=== PATIENT | female | born 1960 | race Caucasian/White ===

== ENCOUNTER → 2017-06-30 | Outpatient (CLI) | payer BC ==
[2017-06-30 10:25] LABS: ALT 39 U/L (9-52); AST 21 U/L (14-36); Alkaline Phosphatase 64 U/L (38-126); Anion Gap 9 mmol/L; Blood Urea Nitrogen 13 mg/dL (7-17); Calcium 9.6 mg/dL (8.4-10.2); Carbon Dioxide 28 mmol/L (22-30); Chloride 105 mmol/L (98-107); Cholesterol 136 mg/dL (<200); Creatine Kinase 95 U/L (30-135); Glucose 84 mg/dL (74-99); HDL Cholesterol 58 mg/dL (40-60); Non-African American GFR(MDRD) >60 (>60 ml/min/1.73 sqM); Potassium 4.3 mmol/L (3.5-5.1); Sodium 142 mmol/L (137-145); Total Bilirubin 0.5 mg/dL (0.2-1.3); Total Protein 6.4 g/dL (6.3-8.2)
== END | disposition home or self-care (01) ==
LOC: LABWHC1 08:54
PROVIDERS: ATTEND Internal Medicine Interventional Cardiology
DX: E78.2 Mixed hyperlipidemia (principal)
CPT/HCPCS: 36415; 80053; 80061; 82550

== ENCOUNTER 2017-08-17 20:42 | Emergency (ER) | payer BC ==
[2017-08-17] MEDS ORDERED: RX INFO: IV CONTRAST WAS GIVEN 1 EACH MISC MISCELLANE PRN (23:40)
[2017-08-17] MEDS ORDERED: ONDANSETRON 4 MG/2 ML VIAL IVP STA (23:40)
[2017-08-17] MEDS ORDERED: SODIUM CHLORIDE 0.9% 500 ML IV STA (23:40)
[2017-08-17] MEDS ORDERED: SODIUM CHLORIDE 0.9% 1,000 ML IV STA (23:40)
--- NOTE | 2017-08-17 23:44 | ED ---
Abdominal Pain HPI - General Source: patient Mode of arrival: ambulatory Limitations: no limitations <Damian Germain - Last Filed: 08/18/17 00:35> <Tim Hernandez - Last Filed: 08/18/17 03:05> - General Chief Complaint: Abdominal Pain Stated Complaint: Abd Pain Time Seen by Provider: 08/17/17 23:36 - History of Present Illness Initial Comments: This 57-year-old white female presents with a complaint of some left lower quadrant abdominal pain which she has had for approximately 2 days and it is progressively worsening. She denies any flank pain, urinary frequency, urgency , dysuria, or fevers. She has had some nausea throughout the day but denies any vomiting or diarrhea. She has had her appendix out but denies any other abdominal surgeries. She denies any known history of diverticulitis. She has had a previous colonoscopy but never has been diagnosed with diverticulosis. She states that the pain is fairly severe in nature. She refuses any pain medications in the ER. No other complaints or modifying factors. No previous similar incidents. (Damian Germain) - Related Data Home Medications Medication Instructions Recorded Confirmed Aspirin EC [Ecotrin Low Dose] 81 mg PO DAILY 11/05/14 08/17/17 Atorvastatin [Lipitor] 20 mg PO DAILY 11/05/14 08/17/17 Nitroglycerin Sl Tabs [Nitrostat] 0.4 mg SUBLINGUAL Q5M PRN 10/05/15 08/17/17 amLODIPine [Norvasc] 2.5 mg PO DAILY 10/05/15 08/17/17 Calcium Carbonate [Calcium] 600 mg PO DAILY 10/10/15 08/17/17 Metoprolol Tartrate [Lopressor] 25 mg PO DAILY 10/10/15 08/17/17 Multivitamins, Thera [Multivitamin] 1 tab PO DAILY 10/10/15 08/17/17 Liberty-3 Fatty Acids [Liberty-3] 1,000 mg PO DAILY 10/10/15 08/17/17 Previous Rx's Medication Instructions Recorded Ciprofloxacin HCl [Cipro] 500 mg PO Q12HR #14 tablet 08/18/17 metroNIDAZOLE [Flagyl] 500 mg PO TID #21 tab 08/18/17 Allergies Allergy/AdvReac Type Severity Reaction Status Date / Time hydromorphone HCl AdvReac Unknown Verified 08/17/17 23:45 [From Dilaudid] isosorbide mononitrate AdvReac Unknown Verified 08/17/17 23:45 [From Imdur] lisinopril AdvReac Cough Verified 08/17/17 23:45 Review of Systems ROS Other: All systems not noted in ROS Statement are negative. <Damian Germain - Last Filed: 08/18/17 00:35> ROS Other: All systems not noted in ROS Statement are negative. <Tim Hernandez - Last Filed: 08/18/17 03:05> ROS Statement: Those systems with pertinent positive or pertinent negative responses have been documented in the HPI. Past Medical History Past Medical History: Coronary Artery Disease (CAD), Myocardial Infarction ([place]) , Syncope Additional Past Medical History / Comment(s): [place] in 2012 with cardiac arrest. Mitral Valve Prolapse. Pt states does NOT have HTN, does NOT have elevated lipids - is on RX prophylactically. SEE DR WOOD'S H&P Last Myocardial Infarction Date:: 2012 History of Any Multi-Drug Resistant Organisms: None Reported Past Surgical History: Appendectomy, Heart Catheterization With Stent, Orthopedic Surgery, Uterine Ablation Additional Past Surgical History / Comment(s): D&C; Uterine Ablation 2007 EST. [facility]; RT KNEE SCOPE. COLONOSCOPY 2014. PTCA W/ STENT. Past Anesthesia/Blood Transfusion Reactions: No Reported Reaction, Motion Sickness Date of Last Stent Placement:: 2012 Past Psychological History: No Psychological Hx Reported Smoking Status: Never smoker Past Alcohol Use History: None Reported Past Drug Use History: None Reported - Past Family History Mother Family Medical History: CVA/TIA, Hypertension Additional Family Medical History / Comment(s): Mother is living. She has colilits. Father Family Medical History: Cancer, CVA/TIA, Diabetes Mellitus Additional Family Medical History / Comment(s): Father is living. He had leukemia. Sister(s) Family Medical History: Deep Vein Thrombosis (DVT) <Damian Germain - Last Filed: 08/18/17 00:35> General Exam Limitations: no limitations <Damian Germain - Last Filed: 08/18/17 00:35> <Tim Hernandez - Last Filed: 08/18/17 03:05> - General Exam Comments Initial Comments: GENERAL: The patient is well nourished and well hydrated. VITAL SIGNS: Heart rate, blood pressure, respiratory rate reviewed as recorded in nurse's notes. EYES: Pupils are round and reactive. Extraocular movements are intact. No conjunctival / lid redness or swelling. ENT: No external evidence of injury, swelling, or ecchymosis. Airway is patent. Throat is clear. NECK: Nontender. No swelling or evidence of injury. No subcutaneous emphysema. Trachea is midline. No thyroid mass. HEART: Regular rate and rhythm. Good peripheral pulses. LUNGS/CHEST: Breath sounds clear and equal bilaterally. No rales, rhonchi, or wheezes. No ecchymosis, subcutaneous emphysema, or tenderness. ABDOMEN: There is tenderness noted to the left lower quadrant. No palpable masses or organomegaly. No peritoneal signs. No abdominal wall swelling or ecchymosis. EXTREMITIES: No extremity tenderness. Normal muscle tone and function. No thoracolumbar tenderness. NEUROLOGIC: Sensation is grossly intact. Cranial nerve exam reveals face is symmetrical, tongue is midline, speech is clear. SKIN: No abrasions or ecchymosis is noted. No induration or masses noted. PSYCHIATRIC: Alert and oriented. Appropriate behavior and judgment. (Damian Germain) Vital Signs 08/17/17 21:10 Temperature 99.0 F Pulse Rate 89 Respiratory 18 Rate Blood Pressure 155/85 O2 Sat by Pulse 97 Oximetry Medical Decision Making - Lab Data Result diagrams: 08/18/17 00:00 <Damian Germain - Last Filed: 08/18/17 00:35> - Lab Data Result diagrams: 08/18/17 00:00 08/18/17 00:00 <Tim Hernandez - Last Filed: 08/18/17 03:05> - Medical Decision Making The patient was seen and examined. All diagnostics were reviewed. An IV is started and she is hydrated. Zofran is ordered. She refuses any pain medications. The EKG shows a normal sinus rhythm at a rate of 73. There is some nonspecific ST T wave changes noted in the inferolateral leads. The NC interval is 178, QRS duration is 92, and the QTC intervals 442. (Damian Germain ) - Lab Data Lab Results 08/18/17 08/18/17 08/18/17 Range/Units 00:00 00:00 00:00 WBC 6.7 (3.8-10.6) k/uL RBC 5.07 (3.80-5.40) m/uL Hgb 14.4 (11.4-16.0) gm/dL Hct 43.5 (34.0-46.0) % MCV 85.6 (80.0-100.0) fL MCH 28.4 (25.0-35.0) pg MCHC 33.2 (31.0-37.0) g/dL RDW 12.3 (11.5-15.5) % Plt Count 233 (150-450) k/uL Neutrophils % 53 % Lymphocytes % 33 % Monocytes % 7 % Eosinophils % 3 % Basophils % 1 % Neutrophils # 3.6 (1.3-7.7) k/uL Lymphocytes # 2.2 (1.0-4.8) k/uL Monocytes # 0.4 (0-1.0) k/uL Eosinophils # 0.2 (0-0.7) k/uL Basophils # 0.1 (0-0.2) k/uL PT (9.0-12.0) sec INR (<1.2) APTT (22.0-30.0) sec Sodium 142 (137-145) mmol/L Potassium 3.6 (3.5-5.1) mmol/L Chloride 104 (98-107) mmol/L Carbon Dioxide 29 (22-30) mmol/L Anion Gap 9 mmol/L BUN 10 (7-17) mg/dL Creatinine 0.80 (0.52-1.04) mg/dL Est GFR (MDRD) Af Amer >60 (>60 ml/min/1.73 sqM) Est GFR (MDRD) Non-Af >60 (>60 ml/min/1.73 sqM) Glucose 91 (74-99) mg/dL Calcium 9.8 (8.4-10.2) mg/dL Total Bilirubin 0.6 (0.2-1.3) mg/dL AST 22 (14-36) U/L ALT 41 (9-52) U/L Alkaline Phosphatase 89 (38-126) U/L Total Protein 6.9 (6.3-8.2) g/dL Albumin 4.4 (3.5-5.0) g/dL Amylase 50 (30-110) U/L Lipase 80 (23-300) U/L Urine Color Yellow Urine Appearance Clear (Clear) Urine pH 5.5 (5.0-8.0) Ur Specific [place] 1.008 (1.001-1.035) Urine Protein Negative (Negative) Urine Glucose (UA) Negative (Negative) Urine Ketones 2+ H (Negative) Urine Blood Negative (Negative) Urine Nitrite Negative (Negative) Urine Bilirubin Negative (Negative) Urine Urobilinogen <2.0 (<2.0) mg/dL Ur Leukocyte Esterase Moderate H (Negative) Urine RBC 1 (0-5) /hpf Urine WBC 18 H (0-5) /hpf Ur Squamous Epith Cells 1 (0-4) /hpf Urine Bacteria Rare H (None) /hpf Urine Mucus Rare H (None) /hpf 08/18/17 Range/Units 00:00 WBC (3.8-10.6) k/uL RBC (3.80-5.40) m/uL Hgb (11.4-16.0) gm/dL Hct (34.0-46.0) % MCV (80.0-100.0) fL MCH (25.0-35.0) pg MCHC (31.0-37.0) g/dL RDW (11.5-15.5) % Plt Count (150-450) k/uL Neutrophils % % Lymphocytes % % Monocytes % % Eosinophils % % Basophils % % Neutrophils # (1.3-7.7) k/uL Lymphocytes # (1.0-4.8) k/uL Monocytes # (0-1.0) k/uL Eosinophils # (0-0.7) k/uL Basophils # (0-0.2) k/uL PT 10.0 (9.0-12.0) sec INR 1.0 (<1.2) APTT 25.9 (22.0-30.0) sec Sodium (137-145) mmol/L Potassium (3.5-5.1) mmol/L Chloride (98-107) mmol/L Carbon Dioxide (22-30) mmol/L Anion Gap mmol/L BUN (7-17) mg/dL Creatinine (0.52-1.04) mg/dL Est GFR (MDRD) Af Amer (>60 ml/min/1.73 sqM) Est GFR (MDRD) Non-Af (>60 ml/min/1.73 sqM) Glucose (74-99) mg/dL Calcium (8.4-10.2) mg/dL Total Bilirubin (0.2-1.3) mg/dL AST (14-36) U/L ALT (9-52) U/L Alkaline Phosphatase (38-126) U/L Total Protein (6.3-8.2) g/dL Albumin (3.5-5.0) g/dL Amylase (30-110) U/L Lipase (23-300) U/L Urine Color Urine Appearance (Clear) Urine pH (5.0-8.0) Ur Specific [place] (1.001-1.035) Urine Protein (Negative) Urine Glucose (UA) (Negative) Urine Ketones (Negative) Urine Blood (Negative) Urine Nitrite (Negative) Urine Bilirubin (Negative) Urine Urobilinogen (<2.0) mg/dL Ur Leukocyte Esterase (Negative) Urine RBC (0-5) /hpf Urine WBC (0-5) /hpf Ur Squamous Epith Cells (0-4) /hpf Urine Bacteria (None) /hpf Urine Mucus (None) /hpf Disposition <Damian Germain - Last Filed: 08/18/17 00:35> <Tim Hernandez - Last Filed: 08/18/17 03:05> Clinical Impression: Abdominal pain, Diverticulitis Disposition: HOME SELF-CARE Condition: Fair Instructions: Diverticulitis (ED) Prescriptions: Ciprofloxacin HCl [Cipro] 500 mg PO Q12HR #14 tablet metroNIDAZOLE [Flagyl] 500 mg PO TID #21 tab Referrals: Anders Mustafa MD [Primary Care Provider] - 1-2 days Poly Maria MD [STAFF PHYSICIAN] - 1-2 days
[2017-08-18 00:20] LABS: Basophils # (A) 0.1 k/uL (0-0.2); Basophils % (A) 1 %; Eosinophils # (A) 0.2 k/uL (0-0.7); Eosinophils % (A) 3 %; HCT 43.5 % (34.0-46.0); HGB 14.4 gm/dL (11.4-16.0); Lymphocytes # (A) 2.2 k/uL (1.0-4.8); Lymphocytes % (A) 33 %; MCH 28.4 pg (25.0-35.0); MCHC 33.2 g/dL (31.0-37.0); MCV 85.6 fL (80.0-100.0); Mean Platelet Volume 7.7; Monocytes # (A) 0.4 k/uL (0-1.0); Monocytes % (A) 7 %; Neutrophils # (A) 3.6 k/uL (1.3-7.7); Neutrophils % (A) 53 %; Platelet Count 233 k/uL (150-450); RBC 5.07 m/uL (3.80-5.40); RDW 12.3 % (11.5-15.5); WBC 6.7 k/uL (3.8-10.6)
[2017-08-18 00:25] LABS: Appearance,Urine Clear (Clear); Bacteria,Urine Rare /hpf; Bilirubin,Urine Negative (Negative); Blood,Urine Negative (Negative); Color,Urine Yellow; Glucose,Urine (UA) Negative (Negative); Ketones,Urine 2+ (Negative); Leukocyte Esterase,Urine Moderate (Negative); Mucus,Urine Rare /hpf; Nitrite,Urine Negative (Negative); PH, Urine 5.5 (5.0-8.0); Protein,Urine Negative (Negative); RBC,Urine 1 /hpf (0-5); Specific Gravity,Urine 1.008 (1.001-1.035); Squamous Epithelial Cell,Urine 1 /hpf (0-4); Urobilinogen,Urine <2.0 mg/dL (<2.0); WBC,Urine 18 /hpf (0-5)
[2017-08-18 00:27] LABS: ALT 41 U/L (9-52); AST 22 U/L (14-36); Albumin 4.4 g/dL (3.5-5.0); Alkaline Phosphatase 89 U/L (38-126); Amylase 50 U/L (30-110); Anion Gap 9 mmol/L; Blood Urea Nitrogen 10 mg/dL (7-17); Calcium 9.8 mg/dL (8.4-10.2); Carbon Dioxide 29 mmol/L (22-30); Chloride 104 mmol/L (98-107); Glucose 91 mg/dL (74-99); Lipase 80 U/L (23-300); Partial Thromboplastin Time 25.9 sec (22.0-30.0); Potassium 3.6 mmol/L (3.5-5.1); Sodium 142 mmol/L (137-145); Total Bilirubin 0.6 mg/dL (0.2-1.3); Total Protein 6.9 g/dL (6.3-8.2)
--- NOTE | 2017-08-18 01:04 | CT ---
EXAMINATION TYPE: CT abdomen pelvis w con DATE OF EXAM: 08/18/2017 COMPARISON: NONE HISTORY: LLQ, left flank pain CT DLP: 1978 mGycm Automated exposure control for dose reduction was used. TECHNIQUE: Helical acquisition of images was performed from the lung bases through the pelvis. CONTRAST: Performed without Oral Contrast and with IV Contrast, patient injected with 100 mL of Omnipaque 300. FINDINGS: There is patchy subsegmental atelectasis at the lung bases. There is no pleural effusion. Heart is pr obably enlarged. Liver spleen pancreas gallbladder appear normal. Bile ducts are not dilated. There is no adrenal mass. Kidneys show satisfactory contrast opacification. There is no hydronephrosi s. Ureters are not dilated. There is no retroperitoneal adenopathy. There is no ascites. Bladder dist ends smoothly. There is no pelvic mass. There are some mild inflammatory changes around the proximal sigmoid colon. Appendix is not seen. The re is no sign of appendicitis. I see no bony destructive process. IMPRESSION: MILD INFLAMMATORY CHANGES AROUND THE PROXIMAL SIGMOID COLON CONSISTENT WITH FOCAL COLITIS OR DIVERTIC ULITIS. MILD PATCHY ATELECTASIS AT THE LUNG BASES.
[2017-08-18] MEDS ORDERED: metroNIDAZOLE 500 MG TAB PO STA (03:03)
[2017-08-18] MEDS ORDERED: LEVOFLOXACIN 750 MG TAB PO STA (03:03)
[2017-08-18 03:29] VITALS: BP 150/70; PULSE 84; RESP 20; TEMP 97
== END 2017-08-18 03:29 | disposition home or self-care (01) ==
LOC: EC 20:42
DX: K57.92 Diverticulitis of intestine, part unspecified, without perforation or abscess without bleeding (principal); I25.10 Atherosclerotic heart disease of native coronary artery without angina pectoris; I25.2 Old myocardial infarction; Z79.82 Long term (current) use of aspirin; Z79.899 Other long term (current) drug therapy; Z88.5 Allergy status to narcotic agent; Z88.8 Allergy status to other drugs, medicaments and biological substances; Z90.49 Acquired absence of other specified parts of digestive tract
CPT/HCPCS: 36415; 93005; 80053; 82150; 83690; 85025; 85610; 85730; 81001; 87040; 74177; 99284; 96374; 96361 ×3; J2405; Q9967

== ENCOUNTER → 2017-11-24 | Outpatient (CLI) | payer BC ==
--- NOTE | 2017-11-24 15:41 | CONS ---
CONSULTATION REASON FOR EVALUATION: Sleep apnea. This is a 57-year-old female patient referred to me for loud snoring, as witnessed and reported by the . The patient also feeling fatigue. There is no major sleepiness or tiredness during the day. 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 She snores loud. She has never been told that she stops breathing at night. She does not wake up choking or gasping for air. She goes to bed around 10:00 pm, wakes up 7:00 am in the morning. She sleeps 8 hours without feeding easily somnolent or sleepy. Current [place] score is 5. No falling asleep during work. No falling asleep while driving. No history of any motor vehicle accidents because of feeling drowsy or sleepy. No sleep paralysis. No hallucinations. No cataplexy. PAST MEDICAL HISTORY: 1. Coronary artery disease. Previous coronary artery stenting for myocardial infarction, and the patient has a stent in place. 2. Hypertension. 3. Hyperlipidemia. PAST SURGICAL HISTORY: 1. Uterine ablation for chronic anemia and blood loss. 2. Cardiac catheterization and insertion of coronary stent. 3. Appendectomy. 4. Right knee arthroscopy. 5. Right carpal tunnel release. DRUG ALLERGIES: IMDUR, DILAUDID AND LISINOPRIL. MEDICATIONS: 1. Toprol 25 mg p.o. daily. 2. Lipitor 20 mg p.o. daily. 3. Aspirin 81 mg p.o. daily. 4. Norvasc 2.5 mg p.o. daily. SOCIAL HISTORY: The patient is a nonsmoker. No history of alcohol. No history of IV drugs. FAMILY HISTORY: with obstructive sleep apnea. Her sister has obstructive sleep apnea. REVIEW OF SYSTEMS: 12-point review of system was done. Positive findings are mentioned above in the history of present illness. Of significance is the absence of sleepwalking or sleep talking. No nighttime heartburn, nausea, vomiting, shortness of breath, chest pain. She denies waking up for nocturia or urination. No gasping for air. No restlessness in lower extremities. No claustrophobia. No sexual dysfunction. No history of depression. PHYSICAL EXAMINATION: BP is 124/79, pulse is 70, respirations 16, temperature 98.6, saturation 94% on room air. Weight is 218, height 5 feet 6 inches. Neck size 15-1/2 inches. GENERAL APPEARANCE: Calm, comfortable. Head is atraumatic, normocephalic. NECK: Supple. Some crowding of posterior pharynx. Mallampati class III. There is no goiter or neck mass. LUNGS: Clear to auscultation. HEART: Sounds regular rhythm. Normal S1, S2. No S3. No murmurs. ABDOMEN: Soft, nontender. No organomegaly. EXTREMITIES: No edema. No cyanosis or clubbing. NEUROLOGIC: The patient alert and oriented x3. No focal neurological deficits. PSYCHIATRIC: Negative for anxiety or depression. IMPRESSION: 1. Loud snoring without clear indication of an underlying obstructive sleep apnea although this cannot be completely ruled out. My overall suspicion for obstructive sleep apnea is low. 2. Chronic fatigue with limited sleepiness. [place] score is 5. 3. Hypertension. 4. Coronary artery disease with previous coronary stenting for myocardial infarction. 5. Hyperlipidemia. PLAN: 1. Proceed with a home sleep study to investigate this patient for the presence of sleep apnea. 2. Encourage weight loss. 3. Tight control of cardiovascular risk factors. 4. We will contact the patient if the home sleep study is positive and further treatment is needed. MMODL / IJN: [id number] /
== END | disposition home or self-care (01) ==
LOC: SLEEP 13:52
PROVIDERS: ATTEND Internal Medicine Critical Care Medicine
DX: R06.83 Snoring (principal); R53.83 Other fatigue; I10 Essential (primary) hypertension; I25.10 Atherosclerotic heart disease of native coronary artery without angina pectoris; E78.5 Hyperlipidemia, unspecified; Z95.5 Presence of coronary angioplasty implant and graft; Z79.899 Other long term (current) drug therapy; Z79.82 Long term (current) use of aspirin; Z88.5 Allergy status to narcotic agent; Z88.8 Allergy status to other drugs, medicaments and biological substances
CPT/HCPCS: 99211

== ENCOUNTER 2018-01-12 10:36 | Day surgery (SDC) | payer BC ==
[2018-01-08 15:59] VITALS: BMI 33.0
[~2018-01-12 10:36] MED LIST: LACTATED RINGERS 1,000 ML IV SCH
[2018-01-12 11:34] VITALS: TEMP 98.4
[2018-01-12] MEDS ORDERED: LIDOCAINE 1% 20 ML VIAL (10MG/ML) FOR IV START INTRADERMA ONE (11:37)
[2018-01-12] MEDS ORDERED: LIDOCAINE 1% INJ 10MG/ML (20 ML MDV) ONE (12:24)
[2018-01-12] MEDS ORDERED: PROPOFOL 10 MG/ML 20 ML VIAL IV ONE (12:24)
--- NOTE | 2018-01-12 12:58 | P.PCN ---
Date of Procedure: 01/12/18 Procedure(s) Performed: Procedure: Total colonoscopy. Preoperative diagnosis: History of diverticulitis. Postoperative diagnosis: Diverticulosis with no evidence of acute diverticulitis , strictures, polyps or cancer. Preparation: HalfLytely prep. Sedation: Was provided by anesthesia. Brief clinical history: The patient is a 57-year-old female who is scheduled for this evaluation because of history of diverticulitis in August of this year. She had a prior exam in 2014. She has no abdominal complaints, bleeding or anemia. This evaluation is to assess for neoplasia or complicated diverticular disease. Procedure: With the patient on her left lateral decubitus position and after informed consent and adequate sedation, the perianal area was inspected and it did not show any fissures or fistulas. There were no masses felt on digital rectal examination. The Olympus CF Q160 L videocolonoscope was then inserted in the rectum in the usual fashion and advanced without difficulty in the sigmoid and then all the way to the cecum. There was multiple diverticular orifices seen scattered in the sigmoid and occasional diverticular orifice around the hepatic flexure and on the right side with no evidence of acute diverticulitis or strictures. No polyps or tumors were seen. The mucosa appeared healthy. I retroflexed the endoscope in the rectum before the endoscope was withdrawn. The patient tolerated the procedure well. Plan: The patient was reassured. Discussed dietary measures. She will follow- up with you as planned and I recommended repeat exam in 10 years.
[2018-01-12 13:10] VITALS: BP 128/80; PULSE 74; RESP 18
== END 2018-01-12 13:38 | disposition home or self-care (01) ==
LOC: ORWHC2ENDO 10:36
DX: K57.30 Diverticulosis of large intestine without perforation or abscess without bleeding (principal); I25.10 Atherosclerotic heart disease of native coronary artery without angina pectoris; M19.90 Unspecified osteoarthritis, unspecified site; I25.2 Old myocardial infarction; Z95.5 Presence of coronary angioplasty implant and graft; Z79.82 Long term (current) use of aspirin; Z79.899 Other long term (current) drug therapy; Z88.5 Allergy status to narcotic agent; Z88.8 Allergy status to other drugs, medicaments and biological substances
CPT/HCPCS: 45378; J2001; J2704

== ENCOUNTER → 2018-03-02 | Outpatient (CLI) | payer BC ==
[2018-03-02 11:17] LABS: ALT 35 U/L (9-52); AST 24 U/L (14-36); Cholesterol 125 mg/dL (<200); HDL Cholesterol 51 mg/dL (40-60); LDL Cholesterol,Calculated 59 mg/dL (0-99); Triglycerides 77 mg/dL (<150)
== END | disposition home or self-care (01) ==
LOC: LABWHC1 10:16
PROVIDERS: ATTEND Internal Medicine Interventional Cardiology
DX: E78.2 Mixed hyperlipidemia (principal)
CPT/HCPCS: 36415; 80061; 84450; 84460

== ENCOUNTER → 2018-03-02 | Outpatient (CLI) | payer BC ==
--- NOTE | 2018-03-04 10:35 | MM ---
Reason for exam: screening (asymptomatic). Last mammogram was performed 2 years and 9 months ago. History: Patient is postmenopausal. Benign right breast aspiration of the right breast, December 31, 2012. Physical Findings: A clinical breast exam by your physician is recommended on an annual basis and results should be correlated with mammographic findings. MG Screening Mammo w CAD Bilateral CC and MLO view(s) were taken. Prior study comparison: June 14, 2015, bilateral MG screening mammo w CAD. June 13, 2014, bilateral MG diagnostic mammo w CAD [facility]. The breast tissue is heterogeneously dense. This may lower the sensitivity of mammography. Previous mammotome biopsy in the right breast. No significant changes when compared with prior studies. ASSESSMENT: Benign, BI-RAD 2 RECOMMENDATION: Routine screening mammogram of both breasts in 1 year.
== END | disposition home or self-care (01) ==
LOC: RADMAMWWP 10:01
PROVIDERS: ATTEND Obstetrics & Gynecology
DX: Z12.31 Encounter for screening mammogram for malignant neoplasm of breast (principal)
CPT/HCPCS: 77067

== ENCOUNTER → 2019-04-19 | Outpatient (CLI) | payer BC ==
[2019-04-19 17:21] LABS: African American GFR (CKD) 92.9 (60.0-200.0); Albumin 4.5 g/dL (3.80-4.90); Albumin/Globulin Ratio 3.21 (1.60-3.17); Anion Gap 7.7 mmol/L (4.00-12.00); Calcium 9.4 mg/dL (8.7-10.3); Carbon Dioxide 29.3 mmol/L (21.6-31.8); Chol/HDL Ratio 2.42; Globulin 1.4 g/dL (1.6-3.3); Total Bilirubin 0.6 mg/dL (0.2-1.2); Total Protein 5.9 g/dL (6.2-8.2)
== END | disposition home or self-care (01) ==
LOC: LABWHC1 10:37
PROVIDERS: ATTEND Internal Medicine Interventional Cardiology
DX: E78.2 Mixed hyperlipidemia (principal)
CPT/HCPCS: 36415; 80053; 80061

== ENCOUNTER → 2020-02-20 | Outpatient (CLI) | payer BC ==
[2020-02-20 15:28] LABS: Chol/HDL Ratio 2.53; LDL Cholesterol,Calculated 68.6 mg/dL (0.0-131.0); VLDL Calculation 23.4 mg/dL (5.00-40.00)
== END | disposition home or self-care (01) ==
LOC: LABWHC1 10:19
PROVIDERS: ATTEND Internal Medicine Interventional Cardiology
DX: E78.2 Mixed hyperlipidemia (principal)
CPT/HCPCS: 36415; 80061; 84450; 84460

== ENCOUNTER → 2021-07-31 | Outpatient (CLI) | payer BC ==
[2021-07-31 16:41] LABS: ALT 28 U/L (8-44); AST 20 U/L (13-35); Albumin 4.5 g/dL (3.8-4.9); Albumin/Globulin Ratio 2.36 (1.60-3.17); Alkaline Phosphatase 106 U/L (41-126); BUN/Creat Ratio 14.49 Ratio (12.00-20.00); Blood Urea Nitrogen 13.1 mg/dL (9.0-27.0); Calcium 9.4 mg/dL (8.7-10.3); Carbon Dioxide 27.3 mmol/L (20.0-27.5); Chloride 105 mmol/L (96-109); Chol/HDL Ratio 2.42 Ratio; Globulin 1.9 g/dL (1.6-3.3); Glucose 94 mg/dL (70-110); LDL Cholesterol,Calculated 67.7 mg/dL (0.0-131.0); Non-African American GFR(CKD) 68.2 (60.0-200.0); Potassium 4.1 mmol/L (3.5-5.5); Sodium 143 mmol/L (135-145); Total Protein 6.5 g/dL (6.2-8.2); VLDL Calculation 17.38 mg/dL (5.00-40.00)
== END | disposition home or self-care (01) ==
LOC: LABWHC1 08:57
PROVIDERS: ATTEND Internal Medicine Interventional Cardiology
DX: E78.2 Mixed hyperlipidemia (principal)
CPT/HCPCS: 36415; 80053; 80061

== ENCOUNTER → 2022-02-18 | Outpatient (CLI) | payer BC ==
[2022-02-18 10:49] LABS: Basophils # (A) 0.1 k/uL (0-0.2); Basophils % (A) 2 %; Eosinophils # (A) 0.2 k/uL (0-0.7); Eosinophils % (A) 4 %; HCT 43.1 % (34.0-46.0); HGB 14.5 gm/dL (11.4-16.0); Lymphocytes # (A) 2.2 k/uL (1.0-4.8); Lymphocytes % (A) 36 %; MCH 29.3 pg (25.0-35.0); MCHC 33.6 g/dL (31.0-37.0); MCV 87.1 fL (80.0-100.0); Mean Platelet Volume 8.9; Monocytes # (A) 0.4 k/uL (0-1.0); Monocytes % (A) 7 %; Neutrophils # (A) 2.9 k/uL (1.3-7.7); Neutrophils % (A) 48 %; Platelet Count 222 k/uL (150-450); RBC 4.95 m/uL (3.80-5.40); RDW 12.2 % (11.5-15.5)
[2022-02-18 11:01] LABS: ALT 25 U/L (4-34); AST 26 U/L (14-36); African American GFR (CKD) 86 (>60 ml/min/1.73 sqM); Albumin 4.3 g/dL (3.5-5.0); Alkaline Phosphatase 93 U/L (38-126); Anion Gap 6 mmol/L; Blood Urea Nitrogen 12 mg/dL (7-17); Carbon Dioxide 29 mmol/L (22-30); Chloride 105 mmol/L (98-107); Globulin 2.2 g/dL; Glucose 96 mg/dL (74-99); Non-African American GFR(CKD) 74 (>60 ml/min/1.73 sqM); Potassium 4.3 mmol/L (3.5-5.1); Sodium 140 mmol/L (137-145); Total Bilirubin 0.8 mg/dL (0.2-1.3); Total Protein 6.5 g/dL (6.3-8.2)
[2022-02-18 19:16] LABS: Chol/HDL Ratio 2.77 Ratio; LDL Cholesterol,Calculated 74.7 mg/dL (0.0-131.0)
== END | disposition home or self-care (01) ==
LOC: LABWHC1 10:07
PROVIDERS: ATTEND Internal Medicine Interventional Cardiology
DX: Z13.220 Encounter for screening for lipoid disorders (principal); E78.2 Mixed hyperlipidemia; I10 Essential (primary) hypertension; R53.83 Other fatigue; Z13.29 Encounter for screening for other suspected endocrine disorder
CPT/HCPCS: 36415; 80053; 80061; 82306; 85025

== ENCOUNTER → 2022-03-14 | Outpatient (CLI) | payer BC ==
--- NOTE | 2022-03-17 08:10 | MM ---
Reason for Exam: Screening (asymptomatic). Last mammogram was performed 4 year(s) and 1 month(s) ago. Patient History: Menarche at age 10. First Full-Term at age 26. Postmenopausal. 12/31/2012, Benign Cyst Aspiration on the right side. Risk Values: Janice 5 year model risk: 1.9%. NCI Lifetime model risk: 8.1%. Prior Study Comparison: 06/13/2014 Bilateral Diagnostic Mammogram, [facility]. 06/14/2015 Bilateral Screening Mammogram, [facility]. 03/02/2018 Bilateral Screening Mammogram, [facility]. Tissue Density: The breast tissue is heterogeneously dense. This may lower the sensitivity of mammography. Findings: Analyzed By CAD. There is no suspicious group of microcalcifications or new suspicious mass in either breast. Biopsy clip in the right breast. No significant change from prior examinations. Overall Assessment: Benign, BI-RAD 2 Management: Screening Mammogram of both breasts in 1 year. A clinical breast exam by your physician is recommended on an annual basis and results should be correlated with mammographic findings. Electronically signed and approved by: Jesús Colon D.O.
== END | disposition home or self-care (01) ==
LOC: RADMAMWWP 11:45
PROVIDERS: ATTEND Pediatrics
DX: Z12.31 Encounter for screening mammogram for malignant neoplasm of breast (principal); Z78.0 Asymptomatic menopausal state
CPT/HCPCS: 77067

== ENCOUNTER → 2023-01-07 | Outpatient (CLI) | payer BC ==
[2023-01-07 14:46] LABS: Basophils # (A) 0.09 X 10*3/uL (0.00-0.10); Basophils % (A) 1.5 %; Eosinophils # (A) 0.25 X 10*3/uL (0.04-0.35); Eosinophils % (A) 4.1 %; HCT 43.7 % (37.2-46.3); HGB 14.1 g/dL (12.0-15.0); Immature Grans, Automated 0.2 %; Lymphocytes # (A) 2.22 X 10*3/uL (0.90-5.00); Lymphocytes % (A) 36.4 %; MCH 28.4 pg (27.0-32.0); MCHC 32.3 g/dL (32.0-37.0); MCV 88.1 fL (80.0-97.0); Mean Platelet Volume 11.4 fL (9.5-12.2); Monocytes # (A) 0.59 X 10*3/uL (0.20-1.00); Monocytes % (A) 9.7 %; NRBC Per 100 WBC 0 /100 WBCS (0.0-0.0); Neutrophils # (A) 2.94 X 10*3/uL (1.80-7.70); Neutrophils % (A) 48.1 %; Platelet Count 218 X 10*3/uL (140-440); RBC 4.96 X 10*6/uL (4.10-5.20); RDW 12.1 % (11.5-14.5)
[2023-01-07 15:37] LABS: ALT 23 U/L (8-44); AST 21 U/L (13-35); African American GFR (CKD) 88.1 (60.0-200.0); Albumin 4.4 g/dL (3.8-4.9); Albumin/Globulin Ratio 2.66 (1.60-3.17); Alkaline Phosphatase 86 U/L (41-126); BUN/Creat Ratio 15.35 Ratio (12.00-20.00); Blood Urea Nitrogen 12.6 mg/dL (9.0-27.0); Calcium 9.4 mg/dL (8.7-10.3); Carbon Dioxide 27.2 mmol/L (20.0-27.5); Chloride 106 mmol/L (96-109); Chol/HDL Ratio 2.45 Ratio; Globulin 1.6 g/dL (1.6-3.3); Glucose 89 mg/dL (70-110); LDL Cholesterol,Calculated 64.8 mg/dL (0.0-131.0); Potassium 4.2 mmol/L (3.5-5.5); Sodium 144 mmol/L (135-145)
== END | disposition home or self-care (01) ==
LOC: LABWHC1 08:56
PROVIDERS: ATTEND Internal Medicine Interventional Cardiology
DX: Z00.01 Encounter for general adult medical examination with abnormal findings (principal); Z13.220 Encounter for screening for lipoid disorders; E78.2 Mixed hyperlipidemia; E55.9 Vitamin D deficiency, unspecified
CPT/HCPCS: 36415; 80053; 80061; 82306; 85025

== ENCOUNTER → 2023-06-19 | Outpatient (CLI) | payer BC ==
[2023-06-19 16:03] LABS: ALT 26 U/L (8-44); AST 18 U/L (13-35); LDL Cholesterol,Calculated 72.6 mg/dL (0.0-131.0); VLDL Calculation 16.72 mg/dL (5.00-40.00)
== END | disposition home or self-care (01) ==
LOC: LABWHC1 08:11
PROVIDERS: ATTEND Internal Medicine Interventional Cardiology
DX: E78.2 Mixed hyperlipidemia (principal)
CPT/HCPCS: 36415; 80061; 84450; 84460

== ENCOUNTER → 2023-06-29 | Day surgery (SDC) | payer BC ==
[2023-06-25 11:46] VITALS: BMI 31.4
[2023-06-29 07:26] VITALS: BP 147/80; PULSE 76; RESP 16; TEMP 97
--- NOTE | 2023-06-29 07:35 | P.PN ---
Subjective Progress Note Date: 06/29/23 The patient presented today to undergo CINDY guided cardioversion. She's feeling well, she is back in sinus mechanism. She is hemodynamically stable. We will continue anticoagulation and she will be followed as an outpatient. Objective - Vital Signs Vital signs: Vital Signs Temp 97.0 F L 06/29/23 06:58 Pulse 76 06/29/23 06:58 Resp 16 06/29/23 06:58 BP 147/80 06/29/23 06:58 Pulse Ox 96 06/29/23 06:58 FiO2 Intake & Output 06/28/23 06/29/23 06/29/23 18:59 06:59 18:59 Intake Total 200 Balance 200 Weight 93 kg Intake: IV 200
== END | disposition home or self-care (01) ==
LOC: OR 06:13
PROVIDERS: ATTEND Internal Medicine Interventional Cardiology
DX: I48.91 Unspecified atrial fibrillation (principal); I10 Essential (primary) hypertension; I25.10 Atherosclerotic heart disease of native coronary artery without angina pectoris; E78.2 Mixed hyperlipidemia; Z79.01 Long term (current) use of anticoagulants; Z79.82 Long term (current) use of aspirin; Z79.899 Other long term (current) drug therapy

== ENCOUNTER → 2023-07-06 | Outpatient (CLI) | payer BC ==
[2023-07-06 16:09] LABS: HCT 47.7 % (37.2-46.3); HGB 15.3 g/dL (12.0-15.0); MCH 28.4 pg (27.0-32.0); MCHC 32.1 g/dL (32.0-37.0); MCV 88.5 FL (80.0-97.0); Mean Platelet Volume 11.5 FL (9.5-12.2); NRBC Per 100 WBC 0 X 10*3/uL (0.00-0.01); Platelet Count 265 X 10*3/uL (140-440); RBC 5.39 X 10*6/uL (4.10-5.20); RDW 12.4 % (11.5-14.5); WBC 8.18 X 10*3/uL (4.50-10.00)
[2023-07-06 16:46] LABS: ALT 25 U/L (8-44); AST 17 U/L (13-35); Albumin 4.2 g/dL (3.8-4.9); Albumin/Globulin Ratio 2.47 Ratio (1.60-3.17); Alkaline Phosphatase 97 U/L (41-126); BUN/Creat Ratio 13.67 Ratio (12.00-20.00); Blood Urea Nitrogen 12.3 mg/dL (9.0-27.0); Calcium 9.3 mg/dL (8.7-10.3); Chloride 106 mmol/L (96-109); Globulin 1.7 g/dL (1.6-3.3); Glucose 100 mg/dL (70-110); Potassium 4.2 mmol/L (3.5-5.5); Sodium 143 mmol/L (135-145); Total Bilirubin 0.4 mg/dL (0.3-1.2); Total Protein 5.9 g/dL (6.2-8.2)
== END | disposition home or self-care (01) ==
LOC: LABWHC1 08:48
PROVIDERS: ATTEND Nurse Practitioner Adult Health
DX: I48.91 Unspecified atrial fibrillation (principal)
CPT/HCPCS: 36415; 80053; 84443; 85027

== ENCOUNTER → 2024-01-20 | Outpatient (CLI) | payer BC ==
--- NOTE | 2024-01-25 23:07 | MM ---
Reason for Exam: Screening (asymptomatic). Last mammogram was performed 1 year(s) and 10 month(s) ago. Patient History: Menarche at age 10. First Full-Term at age 26. Postmenopausal. 12/31/2012, Benign Cyst Aspiration on the right side. Risk Values: Janice 5 year model risk: 2.0%. NCI Lifetime model risk: 7.9%. Prior Study Comparison: 06/14/2015 Bilateral Screening Mammogram, [facility]. 03/02/2018 Bilateral Screening Mammogram, [facility]. 03/14/2022 Bilateral MG screening mammo w CAD, [facility]. Tissue Density: The breasts are heterogeneously dense, which may obscure small masses. Findings: Analyzed By CAD. The pattern is symmetrical. No significant interval change is evident. There is a core marker within the right breast. No suspicious groups of microcalcifications, spiculated or lobular masses, architectural distortion or other secondary signs of malignancy are mammographically apparent. Overall Assessment: Benign, BI-RAD 2 Management: Screening Mammogram of both breasts in 1 year. A negative mammogram report should not preclude additional follow up of suspicious palpable abnormalities. Patient should continue monthly self breast exam. A clinical breast exam by your physician is recommended on an annual basis and results should be correlated with mammographic findings. Note on Janice scores and lifetime risk: 1. A Janice score greater than 3% is considered moderate risk. If this is the case, consider specialist referral to assess eligibility for a risk reducing agent. 2. If overall lifetime risk for the development of breast cancer is 20% or higher, the patient may qualify for future screening with alternating mammogram and breast MRI. Electronically signed and approved by: Guy Pang D.O. Radiologis
== END | disposition home or self-care (01) ==
LOC: RADMAMWWP 12:55
PROVIDERS: ATTEND Pediatrics
DX: Z12.31 Encounter for screening mammogram for malignant neoplasm of breast (principal); Z78.0 Asymptomatic menopausal state
CPT/HCPCS: 77067

== ENCOUNTER → 2024-02-01 | Outpatient (CLI) | payer BC ==
[2024-02-01 14:50] LABS: HCT 46.9 % (37.2-46.3); HGB 14.8 g/dL (12.0-15.0); MCH 28.4 pg (27.0-32.0); MCHC 31.6 g/dL (32.0-37.0); Mean Platelet Volume 11.3 FL (9.5-12.2); NRBC Per 100 WBC 0 X 10*3/uL (0.00-0.01); Platelet Count 298 X 10*3/uL (140-440); RBC 5.21 X 10*6/uL (4.10-5.20); RDW 12.8 % (11.5-14.5); WBC 7.41 X 10*3/uL (4.50-10.00)
[2024-02-01 15:34] LABS: Chol/HDL Ratio 2.66 Ratio; LDL Cholesterol,Calculated 84.4 mg/dL (0.0-131.0)
[2024-02-01 15:35] LABS: ALT 19 U/L (8-44); AST 21 U/L (13-35); Albumin 4.6 g/dL (3.8-4.9); Alkaline Phosphatase 107 U/L (41-126); Blood Urea Nitrogen 14.7 mg/dL (9.0-27.0); Calcium 9.5 mg/dL (8.7-10.3); Carbon Dioxide 25.8 mmol/L (21.6-31.8); Chloride 105 mmol/L (96-109); Glucose 84 mg/dL (70-110); Sodium 143 mmol/L (135-145); Total Bilirubin 0.6 mg/dL (0.3-1.2); Total Protein 6.6 g/dL (6.2-8.2)
== END | disposition home or self-care (01) ==
LOC: LABWHC1 08:40
PROVIDERS: ATTEND Internal Medicine Interventional Cardiology
DX: Z01.812 Encounter for preprocedural laboratory examination (principal); I48.0 Paroxysmal atrial fibrillation; E78.2 Mixed hyperlipidemia
CPT/HCPCS: 36415; 80053; 80061; 84443; 85027

== ENCOUNTER → 2024-02-10 | Outpatient (CLI) | payer MEDICARE ==
--- NOTE | 2024-02-18 23:23 | MR ---
EXAMINATION TYPE: MR lumbar spine wo con DATE OF EXAM: 02/10/2024 COMPARISON: None HISTORY: 64-year-old female M43.16 Spondylolisthesis particularly in standing/walking x1 year - pain also travels down the right side TECHNIQUE: Multiplanar, multisequence images of the lumbar spine were acquired without IV contrast. FINDINGS: Mild degenerative disc desiccation with the lower lumbar spine. Minimal disc bulge particularly L3-L4 and L4-L5. Mild ligamentum flavum thickening L4-L5 with a left-sided 6 mm ligament mentum flavum cyst. Mild facet arthropathy mid to lower lumbar spine. Small 8 mm left-sided sacral Tarlov cyst. Vertebral body heights are preserved. Alignment is maintained. No suspicious bone marrow placement. C onus medullaris is normal. At L4-L5, combination of mild disc bulge and ligamentum flavum thickening minimally narrows the spina l canal. There is also mild bilateral neural foraminal stenosis here. No large focal disc herniation or significant spinal canal stenosis. No prevertebral paravertebral soft tissue is seen. Prominent distention of the urinary bladder partia lly visualized. Please correlate to ensure that this represents voluntary retention. IMPRESSION: 1. Mild multilevel degenerative disc disease with some disc desiccation and minimal disc bulging. 2. Mild to moderate facet arthropathy mid to lower lumbar spine. Associated effusions at the L4-L5 fa cet joints could reflect an acute exacerbation of underlying arthritis. Some ligamentum flavum thicke song is also present with a small 6 mm ligamentum flavum cyst on the left at L4-L5. 3. Minimal overall narrowing of the spinal canal at L4-L5. Mild bilateral neuroforaminal stenosis her e. 4. No large focal disc herniation or significant spinal canal stenosis.
== END | disposition home or self-care (01) ==
LOC: RADMRIMAIN 11:21
PROVIDERS: ATTEND Orthopaedic Surgery Orthopaedic Surgery of the Spine
DX: M43.16 Spondylolisthesis, lumbar region (principal); M99.73 Connective tissue and disc stenosis of intervertebral foramina of lumbar region; M51.36 Other intervertebral disc degeneration, lumbar region; M47.816 Spondylosis without myelopathy or radiculopathy, lumbar region
CPT/HCPCS: 72148

== ENCOUNTER 2024-02-18 05:34 | Day surgery (SDC) | payer BC, MEDICARE ==
[2024-02-16 13:11] VITALS: BMI 33.0
[2024-02-18] MEDS: IV FLUID CONTINUATION 1,000 ML IV ONE (06:24)
[2024-02-18] MEDS: SODIUM CHLORIDE 0.9% 1,000 ML IV SCH (06:24)
[2024-02-18 06:54] LABS: ALT 23 U/L (4-34); AST 27 U/L (14-36); African American GFR (CKD) 83 (>60 ml/min/1.73 sqM); Albumin 4.4 g/dL (3.5-5.0); Alkaline Phosphatase 81 U/L (38-126); Anion Gap 6 mmol/L; Blood Urea Nitrogen 17 mg/dL (7-17); Calcium 9.4 mg/dL (8.4-10.2); Carbon Dioxide 27 mmol/L (22-30); Chloride 109 mmol/L (98-107); Glucose 77 mg/dL (74-99); Non-African American GFR(CKD) 72 (>60 ml/min/1.73 sqM); Potassium 3.8 mmol/L (3.5-5.1); Sodium 142 mmol/L (137-145); Total Bilirubin 0.8 mg/dL (0.2-1.3); Total Protein 6.5 g/dL (6.3-8.2)
[2024-02-18] MEDS ORDERED: LIDOCAINE 1% INJ 10MG/ML (20 ML MDV) ONE (07:22)
[2024-02-18] MEDS ORDERED: HEPARIN SODIUM,PORCINE 10,000 UNIT/ML 1 ML VIAL ONE (07:22)
[2024-02-18] MEDS ORDERED: PROPOFOL 10 MG/ML 20 ML VIAL IV ONE (07:22)
[2024-02-18] MEDS ORDERED: SUCCINYLCHOLINE CHLORIDE 200 MG/10 ML VIAL IV ONE (07:22)
[2024-02-18] MEDS ORDERED: fentaNYL (PF) 50 MCG/ML 2 ML AMP ONE (07:22)
[2024-02-18] MEDS ORDERED: DEXAMETHASONE SOD PHOSPHATE 4 MG/ML 1 ML VIAL ONE (07:22)
[2024-02-18] MEDS ORDERED: MIDAZOLAM 2 MG/2 ML VIAL ONE (07:22)
[2024-02-18] MEDS ORDERED: ONDANSETRON 4 MG/2 ML VIAL ONE (07:22)
--- NOTE | 2024-02-18 07:55 | P.HPCAR ---
History of Present Illness This is Dr. 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 Preserved LV systolic function Increased BMI Hypertension PLAN: A-fib ablation Continue anticoagulation Blood pressure control Ulcertec HPI She continues to have paroxysms of atrial fibrillation with RVR with symptoms of shortness of breath and chest pain She has failed treatment with amiodarone She is intolerant of [place] Hypertension Known coronary artery disease status post coronary stenting in the past No recent chest discomfort syncope No upper respiratory infection no cough fever chills recent ROS: No fever chills or rigors, no cough, phlegm or expectoration, no nausea, vomiting or diarrhea, no hematuria, dysuria, no musculoskeletal complaints, no strokes or seizures, no skin lesions. EXAMINATION: Afebrile pulse rate normal no orthopnea Blood pressure 173/98 Heart sounds S1-S2 normal Breath sounds are clear no rhonchi no crackles Abdomen is soft No lower extremity edema REVIEW OF LABS, ECG & MEDICAL DATA Sodium 142 potassium 3.8 BUN 17 creatinine 0.9 TSH normal at 3.0 Physical Exam Vitals: Vital Signs Temp Pulse Resp BP Pulse Ox 02/18/24 06:21 98 F 63 18 173/98 95 Intake and Output 02/17/24 02/18/24 02/18/24 22:59 06:59 14:59 Intake Total 20 0 Balance 20 0 Intake: IV 20 0 Other: Weight 99.1 kg Past Medical History Past Medical History: Atrial Fibrillation, Coronary Artery Disease (CAD), Chest Pain / Angina, Myocardial Infarction (MS), Mitral Valve Prolapse (MVP), Osteoarthritis (OA), Syncope Additional Past Medical History / Comment(s): MS in 2012 with cardiac arrest/V FIB, MS 11/2023, MIGRAINE HEADACHE, TORN RETINA RT SIDE Last Myocardial Infarction Date:: 2023 History of Any Multi-Drug Resistant Organisms: None Reported Past Surgical History: Appendectomy, Heart Catheterization, Heart Catheteri zation With Stent, Orthopedic Surgery, Uterine Ablation Additional Past Surgical History / Comment(s): D&C, [facility], RT KNEE SCOPE, RT RETINA REPAIR, CINDY, COLONOSCOPY Past Anesthesia/Blood Transfusion Reactions: No Reported Reaction, Motion Sickness Date of Last Stent Placement:: 2012 Smoking Status: Never smoker - Past Family History Mother Family Medical History: CVA/TIA, Hypertension Additional Family Medical History / Comment(s): Mother is living. She has colilits. Father Family Medical History: Cancer, CVA/TIA, Diabetes Mellitus Additional Family Medical History / Comment(s): Father is living. He had leukemia. Sister(s) Family Medical History: Deep Vein Thrombosis (DVT) Physical Examination Vital Signs Temp Pulse Resp BP Pulse Ox 02/18/24 06:21 98 F 63 18 173/98 95 Intake and Output 02/17/24 02/18/24 02/18/24 22:59 06:59 14:59 Intake Total 20 0 Balance 20 0 Intake: IV 20 0 Other: Weight 99.1 kg Results 02/18/24 06:15 Cardiac Enzymes 02/18/24 Range/Units 06:15 AST 27 (14-36) U/L Comprehensive Metabolic Panel 02/18/24 Range/Units 06:15 Sodium 142 (137-145) mmol/L Potassium 3.8 (3.5-5.1) mmol/L Chloride 109 H (98-107) mmol/L Carbon Dioxide 27 (22-30) mmol/L BUN 17 (7-17) mg/dL Creatinine 0.86 (0.52-1.04) mg/dL Glucose 77 (74-99) mg/dL Calcium 9.4 (8.4-10.2) mg/dL AST 27 (14-36) U/L ALT 23 (4-34) U/L Alkaline Phosphatase 81 (38-126) U/L Total Protein 6.5 (6.3-8.2) g/dL Albumin 4.4 (3.5-5.0) g/dL Current Medications Generic Name Dose Route Start Last Admin Trade Name Freq PRN Reason Stop Dose Admin Sodium Chloride 1,000 mls @ 50 mls/hr 02/18/24 06:01 02/18/24 06:24 Saline 0.9% IV 03/19/24 06:02 50 mls/hr .Q20H MIKE Administration Intake and Output 02/17/24 02/18/24 02/18/24 22:59 06:59 14:59 Intake Total 20 0 Balance 20 0 Intake: IV 20 0 Other: Weight 99.1 kg 02/18/24 06:15
[2024-02-18] MEDS: LIDOCAINE 1% INJ 10MG/ML (20 ML MDV) SQ ONE (07:59)
[2024-02-18] MEDS: HEPARIN SOD,PORK IN 0.45% NACL 25,000 UNIT in 0.45% NACL 1 250ML.BAG IV ONE (08:15)
[2024-02-18] MEDS: HEPARIN SODIUM,PORCINE 10,000 UNIT in SODIUM CHLORIDE 0.9% 1,000 ML IRRIGATION ONE (08:16)
[2024-02-18] MEDS: HEPARIN SODIUM,PORCINE (1 ML) 2,500 UNIT in SODIUM CHLORIDE 0.9% 250 ML IRRIGATION ONE (08:16)
[2024-02-18] MEDS: IOPAMIDOL-370 100ML BTL INJ ONE (09:50)
[2024-02-18] MEDS ORDERED: ACETAMINOPHEN TAB 325 MG TAB PO PRN (10:09)
--- NOTE | 2024-02-18 10:31 | P.EPPROC ---
- EP Procedure Note Electrophysiology Procedure Note: PROCEDURE A. fib ablation DIAGNOSIS Atrial fibrillation, symptomatic, refractory to therapy RESULT No left atrial appendage mass seen on intracardiac echo, very large left atrial appendage size Successful A. fib ablation/pulmonary vein isolation of all veins using cryo- ablation Complete entrance block in all 4 veins confirmed Left atrial septal ablation, successful No evidence for phrenic nerve injury Esophageal deflection YES PROCEDURE DETAILS Written informed consent prior to procedure. Patient brought to the EP lab. General anesthesia given. Heparin administered. A city maintained above 300 seconds Both groins prepped and draped per protocol and venous sheaths placed. E sophagus intubated, circa catheter for temperature monitoring an endoscope for possible esophageal deflection. Phrenic nerve monitoring performed. Esophageal temperature monitoring performed. Esophageal deflection performed if circa catheter overlapping with the balloon or circa temperature less than 27.5C Intracardiac echocardiography performed. Pericardium evaluated. Left atrial appendage evaluated. Left atrium evaluated along with pulmonary veins Transseptal catheterization performed under fluoroscopic guidance and intracardiac echo guidance Cryoablation sheath exchanged, balloon catheter along with achieve catheter placed in the left atrium. Pulmonary veins isolated in the following sequence: Left superior pulmonary vein followed by left inferior pulmonary vein, followed by right inferior pulmonary vein and lastly right superior pulmonary vein. Phrenic nerve stimulation along with capture thresholds within the SVC and right superior pulmonary vein to identify the phrenic nerve proximity to the cryo- balloon. Pulmonary veins isolated and confirmed with entrance and exit block. Phrenic nerve integrity confirmed at the end of the procedure Ablation of the left atrial roof performed with sequential lesions from the left superior to the right superior pulmonary veins. Ablation of the electrograms confirmed Ablation of the left atrial septum performed with cannulation of the inferior branch of the right superior vein to achieve ablation of the posterior septum of the left atrium. Ablation of electrograms confirmed Electrical cardioversion performed for persistence of atrial fibrillation despite successful ablation. Diagnostic catheters for the high right atrium, His bundle, coronary sinus placed. LA and RA pressures recorded RA pressure: 11/8 LA pressure: 14//10 Diagnostic EP study with coronary sinus pacing and recording Baseline measurements: AH 131 ms, HV 52 ms Sinus node recovery times were 1561, 1623 and 1370 ms. Corrected sinus node recovery times prolonged AV node Wenckebach block 560 m Venous sheaths were removed and hemostasis assured with a closure device. Patient extubated and transferred to recovery Increase procedural time This was a left-sided esophagus close to the left common pulmonary vein. During ablation multiple attempts had to be made to move the esophagus a safe distance of the from the pulmonary vein draining cryoablation, to avoid excessive thermal cooling of the esophagus. Multiple short duration lesions had to be delivered in the vestibule/common antrum of the vein to avoid excessive esophageal cooling. The veins were completely isolated and the antrum was rendered quiescent This took extra time and effort to keep the esophagus a safe distance away from the cryoablation balloon. During ablation of the right-sided veins very subtle weakening of the diaphragmatic strength was noted by palpation and therefore multiple short cryoablation lesions were delivered in the left atrial septum/[place] as well as the superior vein. At the end of the right-sided ablation, the diaphragmatic contractile strength remained well-preserved. This took extra time and effort to safeguard the phrenic nerve PROCEDURES PERFORMED Diagnostic EP study CS pacing and recording Left and right transseptal catheterization Catheter the mapping of the tachycardia Intracardiac echocardiography Pulmonary vein isolation with transseptal and comprehensive EPS, [id number] Extended procedure duration Linear ablation, left atrium, [id number]
--- NOTE | 2024-02-18 10:35 | P.PRLE ---
RE: Renetta Lee Dear Dr. Sharif Lee underwent successful A-fib ablation with PVI and left atrial septal ablation with complete isolation of all veins Hopefully this resulted in significant reduction in her atrial fibrillation burden She will continue her anticoagulants as before Her blood pressure was elevated and therefore I added valsartan and this can be maximized to keep her blood pressure less than 130/80 mmHg Thank you for entrusting me with the care of the patient Warm regards Sincerely Seferino Chandra
[2024-02-18] MEDS: ACETAMINOPHEN IV (For NPO) 1,000 MG in EMPTY BAG 1 BAG IVPB ONE (13:39)
[2024-02-18 18:24] LABS: Basophils # (A) 0.1 k/uL (0-0.2); Basophils % (A) 0 %; Eosinophils % (A) 0 %; HCT 47.4 % (34.0-46.0); HGB 15.1 gm/dL (11.4-16.0); Lymphocytes # (A) 1.1 k/uL (1.0-4.8); Lymphocytes % (A) 9 %; MCH 28.7 pg (25.0-35.0); MCHC 31.9 g/dL (31.0-37.0); Mean Platelet Volume 10.7; Monocytes # (A) 0.4 k/uL (0-1.0); Monocytes % (A) 3 %; Neutrophils # (A) 11.5 k/uL (1.3-7.7); Neutrophils % (A) 87 %; Platelet Count 188 k/uL (150-450); RBC 5.27 m/uL (3.80-5.40); RDW 13.2 % (11.5-15.5); WBC 13.2 k/uL (3.8-10.6)
[2024-02-18] MEDS: METOPROLOL SUCCINATE (ER) 50 MG TAB.ER.24H PO SCH (20:31)
[2024-02-18] MEDS: APIXABAN 5 MG TAB PO SCH (20:32)
[2024-02-19 07:36] VITALS: RESP 14; TEMP 98.2
--- NOTE | 2024-02-19 08:06 | P.DS ---
Providers Attending physician: Seferino Chandra Primary care physician: [facility] Course: Patient is doing well. Very mild chest discomfort with inspiration No dizziness no lightheadedness Ambulating around in the room Yesterday she had oozing from the track of the sheath in the right groin. The stab incision was resutured with a pursestring suture and this controlled the bleeding She has no hematoma no swelling at all in either groins, mild bruising Heart sounds S1-S2 normal Breath sounds are clear Twelve-lead EKG does not show any ST segment deviation [place] interval is normal No shortness of breath clear lungs on examination No JVD no lower extremity edema Impression Paroxysmal atrial fibrillation, symptomatic, currently on oral amiodarone Known coronary artery disease Elevated blood pressure readings, hypertension Status post PVI and left atrial septal ablation Track oozing right groin, no hematoma Plan Add valsartan 80 mg p.o. daily nightly Continue all other medications Continue Eliquis uninterrupted for a minimum of 2 months No surgery/no interruption of anticoagulation for the next 2 months. This was explained to the patient Follow-up on Thursday for suture removal right groin Stop amiodarone after 2 weeks so Patient Condition at Discharge: Stable Plan - Discharge Summary Discharge Rx Participant: Yes New Discharge Prescriptions: New Valsartan [Diovan] 80 mg PO DAILY #90 tab No Action Atorvastatin [Lipitor] 20 mg PO DAILY Apixaban [Eliquis] 5 mg PO BID Metoprolol Succinate (ER) [Toprol Xl] 50 mg PO HS Amiodarone [Cordarone] 200 mg PO DAILY Discharge Medication List Atorvastatin [Lipitor] 20 mg PO DAILY 11/05/14 [History] Apixaban [Eliquis] 5 mg PO BID 06/25/23 [History] Amiodarone [Cordarone] 200 mg PO DAILY 02/16/24 [History] Metoprolol Succinate (ER) [Toprol Xl] 50 mg PO HS 02/16/24 [History] Valsartan [Diovan] 80 mg PO DAILY #90 tab 02/19/24 [Rx] Follow up Appointment(s)/Referral(s): Rubén Bolaños MD [STAFF PHYSICIAN] - 3 Days (Follow-up on Thursday for suture removal, blood pressure check) Activity/Diet/Wound Care/Special Instructions: Post EP study - Ablation instructions 1. Keep access sites dry for 2 days. 2. No heavy lifting or straining for 2 days. 3. Avoid bending the hips repeatedly for 2 days. 4. You may go up and down stairs slowly Call if the following is noted 1. Bleeding, increasing swelling or pain at the access sites. 2. Increasing chest discomfort, especially upon taking a deep breath. 3. Increasing shortness of breath, at rest or with exertion. 4. Undue cough / phlegm 5. Difficulty or pain while swallowing. 6. Pain or change in color in the extremities. 7. Fever, chills, rigors. 8. Increasing headache or neurologic symptoms. 9. Dizziness, fainting, palpitations Do not stop Eliquis for the next 3 months Discharge Disposition: HOME SELF-CARE
[2024-02-19] MEDS: COLCHICINE 0.6 MG EACH PO ONE (08:43)
[2024-02-19] MEDS: ATORVASTATIN 20 MG TAB PO SCH (08:44)
[2024-02-19] MEDS: VALSARTAN 80 MG TAB PO SCH (08:44)
[2024-02-19 11:45] VITALS: BP 138/87; PULSE 76
== END 2024-02-19 12:10 | disposition home or self-care (01) ==
LOC: CATHEP 05:34 → 6NMEDSUR 11:14 → CATHEP 02-19 12:10
PROVIDERS: ATTEND Internal Medicine Clinical Cardiac Electrophysiology
DX: I48.0 Paroxysmal atrial fibrillation (principal); I34.1 Nonrheumatic mitral (valve) prolapse; I25.2 Old myocardial infarction; I25.10 Atherosclerotic heart disease of native coronary artery without angina pectoris; I10 Essential (primary) hypertension; M19.90 Unspecified osteoarthritis, unspecified site; Z79.01 Long term (current) use of anticoagulants; Z79.899 Other long term (current) drug therapy; Z86.74 Personal history of sudden cardiac arrest; Z95.5 Presence of coronary angioplasty implant and graft; Z90.49 Acquired absence of other specified parts of digestive tract; Z98.890 Other specified postprocedural states
CPT/HCPCS: 92960; 93656; 93657; 86900; 86901; 80053; 84443; 85025; 86850; 86870; 86880; J1644 ×3; J2001; J0131; Q9967

== ENCOUNTER → 2024-05-17 | Outpatient (CLI) | payer MEDICARE ==
--- NOTE | 2024-05-17 14:44 | XR ---
EXAMINATION TYPE: XR chest 2V DATE OF EXAM: 05/17/2024 COMPARISON: 10/05/2015 INDICATION: Recovering from COVID TECHNIQUE: Frontal and lateral views of the chest are obtained. FINDINGS: The heart size is mildly prominent. The pulmonary vasculature is normal. No suspicious infiltrates evident.. IMPRESSION: 1. No acute pulmonary process. [facility], Workstation: [facility], 05/17/2024 2:42 PM
[2024-05-17 14:50] LABS: Partial Thromboplastin Time 26.3 sec (22.0-30.0); Prothrombin Time 11.2 sec (10.0-12.5)
[2024-05-17 19:41] LABS: Basophils # (A) 0.06 X 10*3/uL (0.00-0.10); Basophils % (A) 0.6 %; Eosinophils # (A) 0.21 X 10*3/uL (0.04-0.35); Eosinophils % (A) 2.2 %; HCT 43.4 % (37.2-46.3); HGB 13.7 g/dL (12.0-15.0); Lymphocytes # (A) 3.03 X 10*3/uL (0.90-5.00); Lymphocytes % (A) 32.2 %; MCH 28.8 pg (27.0-32.0); MCHC 31.6 g/dL (32.0-37.0); MCV 91.4 FL (80.0-97.0); Mean Platelet Volume 12.1 FL (9.5-12.2); Monocytes # (A) 0.67 X 10*3/uL (0.20-1.00); Monocytes % (A) 7.1 %; NRBC Per 100 WBC 0 X 10*3/uL (0.00-0.01); Neutrophils # (A) 5.37 X 10*3/uL (1.80-7.70); Neutrophils % (A) 57.1 %; Platelet Count 236 X 10*3/uL (140-440); RBC 4.75 X 10*6/uL (4.10-5.20); RDW 13.6 % (11.5-14.5); WBC 9.42 X 10*3/uL (4.50-10.00)
[2024-05-17 20:11] LABS: Appearance,Urine Clear (Clear); Bilirubin,Urine Negative (Negative); Blood,Urine Negative (Negative); Color,Urine Yellow (Yellow); Ketones,Urine Negative (Negative); Nitrite,Urine Negative (Negative); PH, Urine 6.5; Specific Gravity,Urine 1.004 (1.001-1.030)
[2024-05-17 20:22] LABS: Blood Urea Nitrogen 13.6 mg/dL (9.0-27.0); Calcium 9.4 mg/dL (8.7-10.3); Carbon Dioxide 28.2 mmol/L (21.6-31.8); Chloride 106 mmol/L (96-109); Glucose 99 mg/dL (70-110); Potassium 4.1 mmol/L (3.5-5.5); Sodium 144 mmol/L (135-145)
[2024-05-17 21:03] LABS: Bacteria,Urine None Seen (None Seen)
== END | disposition home or self-care (01) ==
LOC: LABPAT 13:59
PROVIDERS: ATTEND Orthopaedic Surgery Orthopaedic Surgery of the Spine
DX: Z01.818 Encounter for other preprocedural examination
CPT/HCPCS: 71046; 80048; 81001; 85025; 85610; 85730; 87070

== ENCOUNTER 2024-06-08 05:41 | Inpatient (IN) | payer MEDICARE ==
[2024-06-06 09:40] VITALS: BMI 34.7
[2024-06-08] MEDS ORDERED: LIDOCAINE 1% (10MG/ML) FOR IV START INTRADERMA PRN (05:58)
[2024-06-08] MEDS: IV FLUID CONTINUATION 1,000 ML IV ONE ×3 (07:00→13:00)
[2024-06-08] MEDS: ONDANSETRON 4 MG/2 ML VIAL IVP ONE (07:04)
[2024-06-08] MEDS: FAMOTIDINE 20 MG/2 ML VIAL IV STA (07:05)
[2024-06-08] MEDS: SCOPOLAMINE 1 MG/72 HR PATCH TRANSDERM STA (07:06)
[2024-06-08] MEDS: MIDAZOLAM 2 MG/2 ML VIAL IV PRN (07:11)
[2024-06-08] MEDS: LACTATED RINGERS 1,000 ML IV SCH (07:11)
[2024-06-08] MEDS ORDERED: NEOSTIGMINE 1 MG/ML 10 ML VIAL ONE (07:30)
[2024-06-08] MEDS: THROMBIN (BOVINE) 5,000 UNIT VIAL TOPICAL ONE (07:30)
[2024-06-08] MEDS ORDERED: VASOPRESSIN 20 UNIT/ML 1 ML VIAL ONE (07:30)
[2024-06-08] MEDS ORDERED: GLYCOPYRROLATE 0.2 MG/ML 2 ML VIAL ONE (07:30)
[2024-06-08] MEDS ORDERED: LIDOCAINE 1% INJ 10MG/ML (20 ML MDV) ONE (07:30)
[2024-06-08] MEDS ORDERED: PHENYLEPHRINE-0.9% NACL SYG 1,000 MCG/10 ML SYRINGE ONE (07:30)
[2024-06-08] MEDS ORDERED: PHENYLEPHRINE 10 MG/ML VIAL ONE (07:30)
[2024-06-08] MEDS ORDERED: ROCURONIUM 10 MG/ML (5 ML VIAL) IV ONE (07:30)
[2024-06-08] MEDS ORDERED: SUCCINYLCHOLINE CHLORIDE 200 MG/10 ML VIAL IV ONE (07:30)
[2024-06-08] MEDS ORDERED: PROPOFOL 10 MG/ML 20 ML VIAL IV ONE (07:30)
[2024-06-08] MEDS ORDERED: fentaNYL (PF) 50 MCG/ML 2 ML AMP ONE (07:30)
[2024-06-08] MEDS: LIDOCAINE 1%-EPI 1:100,000 20 ML VIAL SQ ONE (08:11)
[2024-06-08] MEDS: ceFAZolin 1,000 MG in SODIUM CHLORIDE 0.9% IRRIGATIO 1,000 ML IRRIGATION PRN ×2 (08:29→10:04)
--- NOTE | 2024-06-08 10:38 | XR ---
Intraoperative/procedural fluoroscopic services were provided for L4-L5 fusion. Total fluoroscopy colby e is 0.26 minutes with a total of 4 submitted images to PACS in the documentation section. Total DAP 481.32 cGycm2. Please see the operative note for further details. [facility], , 06/08/2024 10:35 AM
[2024-06-08] MEDS ORDERED: BENZOCAINE/MENTHOL LOZENG 1 EACH LOZENGE MUCOUS MEM PRN (10:56)
--- NOTE | 2024-06-08 10:56 | P.OP ---
Date of Procedure: 06/08/24 Preoperative Diagnosis: Dynamic spondylolisthesis L4-5, facet arthrosis L4-5, lower extremity radiculopathy, low back pain, foraminal stenosis L4-5 Postoperative Diagnosis: Same Anesthesia: GETA Pathology: none sent Condition: stable Disposition: PACU Description of Procedure: DESCRIPTION OF PROCEDURE(S): BRIEF OPERATIVE NOTE Preoperative Diagnosis: Dynamic spondylolisthesis L4-5, facet arthrosis L4-5, lower extremity radiculopathy, low back pain, foraminal stenosis L4-5 Postoperative Diagnosis: Same Procedure: Laminectomy and decompression L4-[address] navigation aided Minimally invasive Posterior lateral decompression and L4-5 facet fusion Minimally invasive Transforaminal lumbar interbody fusion for a 360 fusion L4-5 Discectomy for decompression L4-5 Placement of interbody graft L4-5 Use of computer navigation for fusion Local autogenous bone grafting Aspiration of bone marrow from the vertebral body pedicle of L4 Use of bone graft extenders Surgeon: Dr. Braden Vat Overhauler: Armando XIONG who is present throughout the entire the case persistence during positioning, dissection, exposure, visualization, and all crucial elements of the case as well as closure. Anesthesia: General anesthesia per Estimated blood loss: Approximately 250 mL Complications: None apparent Components implanted: K2M minimally invasive [place] pedicle screw system withscrews measuring 6.5 mm in diameter to rods one expandable interbody cage with 10 mL of osteo amp bio4 bone graft substitute and 30 mL of the BX bone fibers to supplement the local autogenous bone graft and bone marrow aspirate Disposition: To recovery room in good stable condition. OPERATIVE INDICATIONS The patient has had severe issues at their lower extremity in her lower back over the past several years with significant worsening over the past several months. Over the past few months the patient had pain at their back and their lower extremities. The patient is having severe radicular symptoms at their lower extremity with weakness. The patient is having significant pain in their back. They are unable to obtain any comfort. We did aggressive conservative treatment with medications therapy and interventional pain management however thery were not having any relief. The patient also showed evidence of a listhesis with some dynamic instability at L4-5 with significant facet arthrosis and inflammation in her facet joints. The patient has been through conservative treatment. We discussed various treatment options including surgery, and the patient wishes to proceed with surgery We discussed the risk, patient's alternatives and benefits of surgery including but not limited to, risk of bleeding risk of infection, risk of need for further surgery, risk of decreased, loss of motion, muscle function, malunion nonunion, hardware failure, nerve damage, paralysis, heart attack, blindness and . They understood issues with the current pandemic and the possibility of exposure. OPERATIVE SUMMARY After discussing all the risks, patient alternatives and benefits at length, the patient elected to proceed with surgical intervention, signed informed consent, and presented for their procedure. The patient was seen and examined in the preoperative holding area and the surgical site was marked. The patient was given antibiotics and brought to the operating room. The patient was sedated and intubated by anesthesia in standard fashion. The patient was positioned on to the operating room table in a prone position on the appropriate frame which was well-padded and well molded. We were careful to pad any bony prominences and pressure points. We were careful to maintain the patient's cervical spine and good neutral alignment and position throughout. The patient was prepped and draped in a normal standard fashion. An appropriate timeout and keystone protocol performed. We were able to proceed with the surgery. The local wound area was infiltrated with local anesthetic. Over the right iliac crest I was able to make small stab incisions and establish a guidepin screw fixation to the iliac crest 2. I was able place the computer referencing device over the guidepins to establish an appropriate reference point for the Ziem CT navigation. We then were able to place patient in an appropriate drape and do a navigation spin for visualization and 3-D reconstruction of the lumbar spine. I was able utilize C-arm guidance and navigation to establish appropriate position over the pedicles bilaterally at the appropriate levels at L4 and L5. With the appropriate levels confirmed was able to make small incisions over the appropriate pedicle sites bilaterally. Utilizing the computer navigation device I was able to establish bony landmarks at the right iliac crest for a bony reference point for the navigation device. I was able to establish a Jamshidi needle over the lateral aspect of the pedicle and advanced the trocar into the pedicle being careful not to breech superiorly inferiorly medially or laterally using computer navigation device. Position was confirmed regularly with AP and lateral images on C-arm and with the computer navigation device at the appropriate levels bilaterally. I was able to establish the trocar into the pedicle appropriately into the posterior aspect of the vertebral body bilaterally at the appropriate levels. This was done at each of the pedicle positions and each of the vertebrae. At the superior vertebrae of L4 on the right I was able to take approximately 25 mL of bone aspiration for use later in the case to supplement the allograft and autograft bone. I was able place the guidewire into the trocar and into the vertebral body appropriately under C-arm guidance. Dissection was taken down over the wire to the appropriate starting position for the screw placed. The appropriate length screw was chosen, threaded over the guidewire and screwed appropriately into the pedicle and vertebral body under C-arm guidance in excellent alignment and position with good bony purchase. This is done at each of the screw sites at the appropriate levels at L4 and L5. With the screws intact I extended the incision to connect the screw hole sites on the most symptomatic side on the right of L4-5. I dissected down to establish access over the pars and lamina to the base of the spinous process. I was able to expose the facet joint. The capsule the facet was taken down and showed some facet arthrosis at the joint. I was able to use a combination of curettes and Kerrison rongeurs and a high-speed drill to take down the facet joint and do a facetectomy. I was able get excellent foraminal decompression and central decompression with undermining across midline to perform a laminectomy centrally and contralaterally. As able get good central decompression. The ligamentum flavum was taken down to further decompress centrally and at bilateral neural foramen. I was able to expose the disc space and visualize the traversing nerve root. Note was made of some disc protrusion and disc herniation that was abutting the traversing nerve root at the level causing further compression of the nerve root. I was able to establish a annulotomy at the appropriate level protecting soft tissue and neural structures. Note was made of some disc desiccation at the disc. I performed a complete discectomy with accommodation of curettes and rasps and scrapers. I was able get good endplate preparation at the disc space. I sized for the appropriate size interbody spacer protecting the soft tissue and neural structures. The wound was copiously irrigated and suctioned dry. There is no evidence of any dural tear or leak. I was able to pack the disc space with local autogenous bone graft as well as a small amount of bone graft which was also placed into the interbody cage itself. Protecting the soft tissue structures and neural structures I was able place the interbody cage in good alignment and good position with good fit and fill at the interbody space. Position was confirmed with C-arm guidance. Good hemostasis maintained. There is no evidence of any dural tear or leak. The wound was irrigated and suctioned dry. With the hardware intact, intraoperative C-arm imaging was again taken which showed good alignment and position of the hardware at the appropriate levels. We were then able to measure, contour and place the rods and appropriate hardware bilaterally. I was able to place capcrews, tighten them down, and torque them with the torque screwdriver appropriately. With this intact I was able to place the local autogenous bone graft with additional bone graft enhancer as necessary into the posterior lateral gutters over the decorticated transverse processes and facet joints on the contralateral side. The remainder of the bone graft was placed over the facet joint on the contralateral side after taking down the facet joint capsule. With the bone graft intact, a stable construct, and good decompression at the appropriate levels, we were able to proceed with closure. Good hemostasis was maintained. There is no evidence of dural tear or leak. The fascia was closed for a watertight closure. he subc uticular tissue was closed with absorbable suture. The wound was cleaned and dried and dressed with the appropriate dressing. The drapes were broken down. The patient was gently rolled back onto their hospital bed being careful to maintain their cervical spine and good neutral alignment and position. They were woken up by anesthesia, extubated, and brought to the recovery room in good stable condition. The patient will be admitted to the hospital for appropriate postoperative care, medical management and monitoring. We will continue to follow them closely about the postoperative course.
[2024-06-08] MEDS ORDERED: traMADol 50 MG TAB PO PRN (11:00)
[2024-06-08] MEDS: fentaNYL (PF) 50 MCG/ML 2 ML AMP IVP PRN (11:32)
[2024-06-08] MEDS: HYDROcodone/APAP 5-325MG 1 EACH TAB PO PRN (14:12)
[2024-06-08] MEDS: METOPROLOL SUCCINATE (ER) 50 MG TAB.ER.24H PO SCH (15:24)
[2024-06-08] MEDS: DEXAMETHASONE SOD PHOSPHATE 4 MG/ML 1 ML VIAL IV ONE (16:03)
[2024-06-08] MEDS: MORPHINE SULFATE 2 MG/ML SYRINGE IVP PRN (16:57)
[2024-06-08] MEDS: SODIUM CHLORIDE 0.9% 1,000 ML IV SCH (17:05)
[2024-06-08] MEDS: ACETAMINOPHEN TAB 325 MG TAB PO SCH (18:01)
--- NOTE | 2024-06-08 19:09 | P.CONS ---
History of Present Illness - Reason for Consult Consult date: 06/08/24 Medical management Requesting physician: Ryan Braden - Chief Complaint Lumbar surgery - History of Present Illness Very pleasant 64-year-old patient who follows with Dr. Leigh. Chronic medical conditions include hypertension, hyperlipidemia, GERD, CAD with stent around 2012, atrial fibrillation. Patient takes Eliquis for the latter. And amiodarone. Patient been having lower back pain for several years. Much worse in the last 1 year. Specially with walking and much much worse and static standing. Pain did not radiate down the leg. No interference with bowel or urine. Patient is undergone lumbar surgery. EBL 250 cc. Postprocedure patient lying in bed. No drain present. Pain around 5/10. No nausea vomiting. Tired. at the bedside. Review of systems: GEN.: Tired EYES: None HEENT: None NECK: None RESPIRATORY: None CARDIOVASCULAR: None GASTROINTESTINAL: None GENITOURINARY: None MUSCULOSKELETAL: [Joint pains LYMPHATICS: None HEMATOLOGICAL: None PSYCHIATRY: None NEUROLOGICAL: As above Social history: . No history of smoking alcohol Physical examination: VITAL SIGNS: 97.4, 122, 16, 119 x 80, 93% GENERAL: BMI 36.2, laying in bed awake not in distress. EYES: Pupils equal. Conjunctiva tarsha l. HEENT: External appearance of nose and ears normal, oral cavity grossly normal. NECK: JVD not raised; masses not palpable. HEART: First and second heart sounds are normal; no edema. LUNGS: Respiratory rate normal; clear to auscultation. ABDOMEN: Soft, nontender, liver spleen not palpable, no masses palpable. PSYCH: Alert and oriented x3; mood and affect tarsha l. MUSCULOSKELETAL:No Clubbing/cyanosis;muscles-grossly intact. Dressing over the surgical incision NEUROLOGICAL: Cranial nerves grossly intact; no facial asymmetry, power and sensation grossly intact. LYMPHATICS: No lymph nodes palpable in the axilla and neck INVESTIGATIONS, reviewed in the clinical context: May 17, 2024: White count 9.4 hemoglobin 13.7 platelets 236 sodium 144 potassium 4.1 creatinine 1.0 Assessment plan: -Laminectomy and decompression L4-L5, discectomy etc. for make spondylolisthesis L4-L5, facet arthrosis L4-L5, lower extremity radiculopathy, low back pain, foraminal stenosis L4-L5. -Paroxysmal atrial fibrillation Elementary. Toprol-XL 50 mg nightly. Eliquis. Amiodarone. -CAD with stent in 2012 Eliquis. Toprol-XL -Essential hypertension Valsartan 80 mg nightly -Hyperlipidemia Lipitor 20 mg a day -Obesity BMI 36.2 Weight loss measures Care was discussed with the patient at the bedside. Patient started Eliquis by Dr. Braden. Other home medications resumed. Follow labs. Thank you Dr. Braden Past Medical History Past Medical History: Atrial Fibrillation, Coronary Artery Disease (CAD), Chest Pain / Angina, GERD/Reflux, Myocardial Infarction (MD), Mitral Valve Prolapse (MVP), Osteoarthritis (OA), Syncope Additional Past Medical History / Comment(s): MD in 2012 with cardiac arrest/V FIB, MIGRAINE HEADACHE, TORN RETINA RT SIDE Last Myocardial Infarction Date:: 2012 History of Any Multi-Drug Resistant Organisms: None Reported Past Surgical History: Appendectomy, Cardiac Ablation, Heart Catheterization With Stent, Orthopedic Surgery, Uterine Ablation Additional Past Surgical History / Comment(s): D&C, MART[facility]N CTR, RT KNEE SCOPE, RT RETINA REPAIR Past Anesthesia/Blood Transfusion Reactions: No Reported Reaction, Motion Sickness Date of Last Stent Placement:: 2012 Past Psychological History: No Psychological Hx Reported Additional Psychological History / Comment(s): . Smoking Status: Never smoker Past Alcohol Use History: None Reported Past Drug Use History: None Reported - Past Family History Mother Family Medical History: CVA/TIA, Hypertension Additional Family Medical History / Comment(s): Mother is living. She has colilits. Father Family Medical History: Cancer, CVA/TIA, Diabetes Mellitus Additional Family Medical History / Comment(s): Father is living. He had leukemia. Sister(s) Family Medical History: Deep Vein Thrombosis (DVT) Medications and Allergies Home Medications Medication Instructions Recorded Confirmed Type Atorvastatin [Lipitor] 20 mg PO DAILY 11/05/14 06/08/24 History Apixaban [Eliquis] 5 mg PO BID 06/25/23 06/08/24 History Amiodarone [Cordarone] 200 mg PO DAILY 02/16/24 06/08/24 History Metoprolol Succinate (ER) [Toprol 50 mg PO HS 02/16/24 06/08/24 History Xl] Valsartan [Diovan] 80 mg PO HS 06/06/24 06/08/24 History Allergies Allergy/AdvReac Type Severity Reaction Status Date / Time diltiazem [From Cardizem] AdvReac Vomiting Verified 06/08/24 06:20 hydromorphone HCl AdvReac Vomiting Verified 06/08/24 06:20 [From Dilaudid] isosorbide mononitrate AdvReac HEADACHE Verified 06/08/24 06:20 [From Imdur] lisinopril AdvReac Cough Verified 06/08/24 06:20 Physical Exam Vitals: Vital Signs Temp Pulse Pulse Resp BP BP Pulse Ox 06/08/24 15:38 122 H 101/80 93 L 06/08/24 15:23 124 H 129/91 96 06/08/24 15:08 123 H 118/79 95 06/08/24 14:53 123 H 122/95 95 06/08/24 14:38 121 H 116/71 94 L 06/08/24 14:24 122 H 119/80 93 L 06/08/24 14:12 97.4 F L 123 H 17 129/98 94 L 06/08/24 13:00 121 H 16 94 L 06/08/24 12:45 119 H 16 137/95 96 06/08/24 12:40 16 06/08/24 12:30 120 H 16 123/87 97 06/08/24 12:15 119 H 16 132/97 99 06/08/24 12:00 73 16 128/98 100 06/08/24 11:45 73 16 125/84 100 06/08/24 11:30 119 H 16 139/65 97 06/08/24 11:15 107 H 16 160/72 06/08/24 11:00 101 H 16 159/75 06/08/24 10:51 96.7 F L 114 H 16 126/82 96 06/08/24 06:20 97.0 F L 128 H 18 145/85 95 Intake and Output 06/08/24 06/08/24 06/08/24 06:59 14:59 22:59 Intake Total 2102 425 Output Total 490 700 Balance 1612 -275 Intake: IV 2102 Intake, IV Titration 425 Amount Sodium Chloride 0.9% 1, 375 000 ml @ 75 mls/hr IV . [id number] [facility] Rx#:[id number] ceFAZolin 2 gm In Sodium 50 Chloride 0.9% 50 ml @ 100 mls/hr IVPB Q8HR [facility] Rx# :[id number] Output: Urine 240 700 Estimated Blood Loss 250 Other: Weight 101.8 kg 101.8 kg
[2024-06-08] MEDS: VALSARTAN 80 MG TAB PO SCH (20:32)
[2024-06-09 08:44] LABS: BUN/Creat Ratio 12.44 Ratio (12.00-20.00); Basophils # (A) 0.06 X 10*3/uL (0.00-0.10); Basophils % (A) 0.4 %; Blood Urea Nitrogen 11.2 mg/dL (9.0-27.0); Calcium 8.2 mg/dL (8.7-10.3); Carbon Dioxide 19.9 mmol/L (21.6-31.8); Chloride 103 mmol/L (96-109); Eosinophils # (A) 0.01 X 10*3/uL (0.04-0.35); Eosinophils % (A) 0.1 %; Glucose 125 mg/dL (70-110); HCT 36.4 % (37.2-46.3); HGB 11.6 g/dL (12.0-15.0); Lymphocytes # (A) 1.83 X 10*3/uL (0.90-5.00); Lymphocytes % (A) 13.2 %; MCH 29.8 pg (27.0-32.0); MCHC 31.9 g/dL (32.0-37.0); MCV 93.6 FL (80.0-97.0); Mean Platelet Volume 12.3 FL (9.5-12.2); Monocytes # (A) 1.15 X 10*3/uL (0.20-1.00); Monocytes % (A) 8.3 %; NRBC Per 100 WBC 0 X 10*3/uL (0.00-0.01); Neutrophils # (A) 10.77 X 10*3/uL (1.80-7.70); Neutrophils % (A) 77.4 %; Platelet Count 176 X 10*3/uL (140-440); Potassium 4.1 mmol/L (3.5-5.5); RBC 3.89 X 10*6/uL (4.10-5.20); RDW 14.4 % (11.5-14.5); Sodium 135 mmol/L (135-145); WBC 13.91 X 10*3/uL (4.50-10.00)
[2024-06-09] MEDS: SENNOSIDES-DOCUSATE SODIUM 1 EACH TAB PO SCH (10:22)
[2024-06-09] MEDS: AMIODARONE 200 MG TAB PO SCH (10:23)
[2024-06-09] MEDS: ATORVASTATIN 20 MG TAB PO SCH (10:23)
[2024-06-09] MEDS: APIXABAN 5 MG TAB PO SCH (10:28)
--- NOTE | 2024-06-09 10:38 | P.PN ---
Progress Note - Text Progress Note Date: 06/09/24 The patient is seen and examined at bedside. She is making progress. She has been able to get up and void. Her pain is controlled adequately but she is still requiring IV and oral medications. Hopefully she will be able to make further progress and increase her oral intake. Orthopedic spine: History of present illness: Patient is a pleasant 64-year-old female who is seen and examined at the bedside following posterior lateral decompression and fusion performed yesterday. Patient states they are doing ok post operatively. She has been able to mobilize to a chair and to the restroom. She is voiding without difficulty. Her Hammer catheter has been discontinued. She does have significant pain at the surgical sites of her lumbar spine. She is not currently complaining of specific lower extremity radiculopathy pattern but states she does have leg aches and pains when trying to mobilize. She continues pain control with oral and IV medications. Currently does not complain of nausea, vomiting, fever, or chills. She is currently being seen by Dr. Rogers in medicine for postoperative medical management. Patient states she does not take anticoagulation medications in the outpatient setting from a cardiac standpoint. Physical Exam Lumbar Fusion: Status post surgical day number 1 Patient is awake, alert, and oriented 3 Vital signs stable Good chest excursion with deep inspiration and expiration Dorsiflexion, plantarflexion, and extensor hallucis longus positive sustained bilaterally No signs or symptoms of DVT; no calf pain; pneumatic cuffs intact bilateral lower extremities Optifoam dressings are clean, dry, and intact over the lumbar spine and right iliac crest; no erythema, purulence, or signs of infection Neurovascularly intact bilaterally lower extremities Assessment: Status post L4-5 minimally invasive posterior lateral decompression and fusion with transforaminal lumbar interbody fusion L4-5 dynamic spondylolisthesis Lumbar facet arthrosis Lower extremity radiculopathy L4-5 foraminal stenosis Low back pain Heart disease History of blood clots Hypertension History of palpitations Plan: 1. Ambulate as tolerated; work with Physical Therapy to increase mobilization 2. Continue pain control with IV and oral medications; will plan to begin weaning the patient off of IV narcotic medication in anticipation for discharge home in the next 1-2 days 3. Dressings to remain intact with Optifoam; patient may shower with dressings intact 4. Medical management can continue to manage patient for patient's other medical diagnoses 5. We will continue to follow the patient closely; patient is progressing but somewhat slowly. Patient will most likely require further hospitalization at least over the next 2 nights with plans for possible discharge home this coming 06/11/2024. 6. Patient can follow-up with Armando Alvarado PA-C or Dr. Chan Braden at [facility] in 2-3 weeks following discharge the patient is seen and examined at bedside. She is making improvement. Her color is better and she is voiding on her own. She was able to eat a little bit of food but needs to be encouraged for her oral intake.
--- NOTE | 2024-06-09 14:37 | P.CRDCN ---
History of Present Illness Consult date: 06/09/24 Reason for Consult (text): This is a 64-year-old female patient of Dr. Bolaños with past medical history of paroxysmal atrial fibrillation status post ablation, CAD, hyperlipidemia, hypertension. We have been asked to evaluate the patient for uncontrolled atrial fibrillation. Patient had an ablation done on February 18, 2024 and she feels she has been in a sinus rhythm for a while after that until she came down with COVID about 9 weeks ago. She states she has had more problems going in and out of atrial fibrillation since then. Patient came into the hospital under the care of of orthopedic spine and is status post laminectomy and decompression L4- 5 on 06/08. Patient has been resumed back on her cardiac medications but despite that, she has been running in the 120s on telemetry which was initiated yesterday around 4 PM. Patient denies having palpitations, lightheadedness or dizziness. She just states that she feels weak. Blood pressure 108/67, telemetry is 120 bpm, atrial fibrillation. Pulse ox 94% on 4 L. Laboratory studies: WBC 13.9, hemoglobin 9.6, platelet count 176. Sodium 135, potassium 4.1, BUN 11 creatinine 0.9. Home cardiac medications: Amiodarone 200 mg daily, Eliquis 5 mg twice daily, atorvastatin 20 mg daily, Toprol-XL 50 mg at bedtime, valsartan 80 mg at bedtime. Cardiac catheterization performed 12/10/2023 revealed normal EF, normal coronaries, right dominance. 10/2012: Stent to the mid PLB and PTCA mid PLB. Echocardiogram performed 12/09/2023 revealed normal EF, mild MR, mild TR. Atrial fibrillation ablation performed on 02/18/2024. Review Of Systems: At the time of my exam: CONSTITUTIONAL: Denies fever or chills. Reports generalized weakness. HEENT: Denies blurred vision, vision changes, or eye pain. Denies hemoptysis CARDIOVASCULAR: Denies chest pain. Denies orthopnea. Denies PND. Denies palpitations RESPIRATORY: Denies shortness of breath. GASTROINTESTINAL: Denies abdominal pain. Denies nausea or vomiting. HEMATOLOGIC: Denies bleeding disorders. GENITOURINARY: Denies any blood in urine. SKIN: Denies puritis. Denies rash. Physical examination: Gen: This is a 64-year-old female in no acute distress VS: reviewed HEENT: Head is atraumatic, normocephalic. Pupils equal, round. Sclerae is anicteric. NECK: Supple. No JVD. LUNGS: Clear to auscultation. No wheezes or rhonchi. No intercostal retractions. HEART: Irregular rate and rhythm. Systolic murmur. ABDOMEN: Soft No tenderness. EXTREMITIES: No pedal edema. No calf tenderness. NEUROLOGICAL: Patient is awake, alert and oriented x3. Assessment: Paroxysmal atrial fibrillation with RVR History of A-fib ablation Recent COVID-19 approximately 9 weeks ago CAD with stent and PTCA 2012 Hyperlipidemia Hypertension Plan: Continue patient's home cardiac medications Start patient on Cardizem 30 mg oral every 8 hours Continue telemetry monitoring Further recommendations to follow based upon clinical course Thank you kindly for this consultation. Nurse practitioner note has been reviewed, I agree with documented findings and plan of care. Patient was seen and examined. Past Medical History Past Medical History: Atrial Fibrillation, Coronary Artery Disease (CAD), Chest Pain / Angina, GERD/Reflux, Myocardial Infarction ([place]), Mitral Valve Prolapse (MVP), Osteoarthritis (OA), Syncope Additional Past Medical History / Comment(s): [place] in 2013 with cardiac arrest/V FIB, MIGRAINE HEADACHE, TORN RETINA RT SIDE Last Myocardial Infarction Date:: 2012 History of Any Multi-Drug Resistant Organisms: None Reported Past Surgical History: Appendectomy, Cardiac Ablation, Heart Catheterization With Stent, Orthopedic Surgery, Uterine Ablation Additional Past Surgical History / Comment(s): D&C, [facility], RT KNEE SCOPE, RT RETINA REPAIR Past Anesthesia/Blood Transfusion Reactions: No Reported Reaction, Motion Sickness Date of Last Stent Placement:: 2012 Past Psychological History: No Psychological Hx Reported Additional Psychological History / Comment(s): . Smoking Status: Never smoker Past Alcohol Use History: None Reported Past Drug Use History: None Reported - Past Family History Mother Family Medical History: CVA/TIA, Hypertension Additional Family Medical History / Comment(s): Mother is living. She has colilits. Father Family Medical History: Cancer, CVA/TIA, Diabetes Mellitus Additional Family Medical History / Comment(s): Father is living. He had leukemia. Sister(s) Family Medical History: Deep Vein Thrombosis (DVT) Medications and Allergies Home Medications Medication Instructions Recorded Confirmed Type Atorvastatin [Lipitor] 20 mg PO DAILY 11/05/14 06/08/24 History Apixaban [Eliquis] 5 mg PO BID 06/25/23 06/08/24 History Amiodarone [Cordarone] 200 mg PO DAILY 02/16/24 06/08/24 History Metoprolol Succinate (ER) [Toprol 50 mg PO HS 02/16/24 06/08/24 History Xl] Valsartan [Diovan] 80 mg PO HS 06/06/24 06/08/24 History Allergies Allergy/AdvReac Type Severity Reaction Status Date / Time diltiazem [From Cardizem] AdvReac Vomiting Verified 06/08/24 06:20 hydromorphone HCl AdvReac Vomiting Verified 06/08/24 06:20 [From Dilaudid] isosorbide mononitrate AdvReac HEADACHE Verified 06/08/24 06:20 [From Imdur] lisinopril AdvReac Cough Verified 06/08/24 06:20 Physical Exam Vitals: Vital Signs Temp Pulse Pulse Pulse Resp BP BP 06/09/24 13:00 99.2 F 92 18 108/67 06/09/24 08:00 99 F 124 H 24 129/84 06/09/24 01:38 97.3 F L 122 H 17 133/79 06/08/24 20:50 122 H 122 H 17 06/08/24 19:47 97.7 F 120 H 17 123/77 06/08/24 15:38 122 H 101/80 06/08/24 15:23 124 H 129/91 06/08/24 15:08 123 H 118/79 06/08/24 14:53 123 H 122/95 06/08/24 14:38 121 H 116/71 06/08/24 14:24 122 H 119/80 Pulse Ox 06/09/24 13:00 94 L 06/09/24 08:00 94 L 06/09/24 01:38 95 06/08/24 20:50 06/08/24 19:47 98 06/08/24 15:38 93 L 06/08/24 15:23 96 06/08/24 15:08 95 06/08/24 14:53 95 06/08/24 14:38 94 L 06/08/24 14:24 93 L Intake and Output 06/08/24 06/09/24 06/09/24 22:59 06:59 14:59 Intake Total 425 Output Total 700 350 350 Balance -275 -350 -350 Intake: Intake, IV Titration 425 Amount Sodium Chloride 0.9% 1, 375 000 ml @ 75 mls/hr IV . [id number] [facility] Rx#:[id number] ceFAZolin 2 gm In Sodium 50 Chloride 0.9% 50 ml @ 100 mls/hr IVPB Q8HR [facility] Rx# :[id number] Output: Urine 700 350 350 Other: Voiding Method Indwelling Catheter Toilet # Voids 1 Results 06/09/24 03:43 06/09/24 03:43 CBC 06/09/24 Range/Units 03:43 WBC 13.91 H (4.50-10.00) X 10*3/uL RBC 3.89 L (4.10-5.20) X 10*6/uL Hgb 11.6 L (12.0-15.0) g/dL Hct 36.4 L (37.2-46.3) % Plt Count 176 (140-440) X 10*3/uL Comprehensive Metabolic Panel 06/09/24 Range/Units 03:43 Sodium 135 (135-145) mmol/L Potassium 4.1 (3.5-5.5) mmol/L Chloride 103 (96-109) mmol/L Carbon Dioxide 19.9 L (21.6-31.8) mmol/L BUN 11.2 (9.0-27.0) mg/dL Creatinine 0.9 (0.6-1.5) mg/dL Glucose 125 H (70-110) mg/dL Calcium 8.2 L (8.7-10.3) mg/dL Current Medications Generic Name Dose Route Start Last Admin Trade Name Freq PRN Reason Stop Dose Admin Acetaminophen 650 mg 06/08/24 12:00 06/09/24 13:25 Acetaminophen Tab 325 Mg Tab PO 07/08/24 11:59 650 mg Q6HR MIKE Administration Hydrocodone Bitart/Acetaminophen 1 each 06/08/24 10:56 06/09/24 09:36 Hydrocodone/Apap 5-325mg 1 Each Tab PO 07/08/24 10:55 1 each Q4HR PRN Administration Pain Amiodarone HCl 200 mg 06/09/24 09:00 06/09/24 10:23 Amiodarone 200 Mg Tab PO 07/09/24 08:59 200 mg DAILY MIKE Administration Apixaban 5 mg 06/09/24 09:00 06/09/24 10:28 Apixaban 5 Mg Tab PO 07/09/24 08:59 5 mg BID MIKE Administration Protocol Atorvastatin Calcium 20 mg 06/09/24 09:00 06/09/24 10:23 Atorvastatin 20 Mg Tab PO 07/09/24 08:59 20 mg DAILY MIKE Administration Benzocaine/Menthol 1 each 06/08/24 10:56 Benzocaine/Menthol Lozeng 1 Each Lozenge MUCOUS MEM 07/08/24 10:55 Q4HR PRN Sore Throat Lactated Ringer's 1,000 mls @ 20 mls/hr 06/08/24 05:58 06/08/24 07:13 Lactated Ringers IV 07/08/24 05:57 20 mls/hr .Q24H MIKE Administration Sodium Chloride 1,000 mls @ 75 mls/hr 06/08/24 11:00 06/09/24 04:08 Saline 0.9% IV 07/08/24 10:59 Not Given .[id number] MIKE Lidocaine HCl 0.1 ml 06/08/24 05:58 Lidocaine 1% (10mg/Ml) For Iv Start INTRADERMA 07/08/24 05:57 PER PROTOCOL PRN IV Start Metoprolol Succinate 50 mg 06/08/24 21:00 06/08/24 15:24 Metoprolol Succinate (Er) 50 Mg Tab.Er.24h PO 07/08/24 20:59 50 mg HS MIKE Administration Morphine Sulfate 2 mg 06/08/24 10:58 06/08/24 16:57 Morphine Sulfate 2 Mg/Ml Syringe IVP 07/08/24 10:57 2 mg Q4HR PRN Administration Pain/Discomfort Ondansetron HCl 4 mg 06/08/24 11:00 Ondansetron 4 Mg/2 Ml Vial IVP 07/08/24 10:59 Q8HR PRN Nausea And Vomiting Senna/Docusate Sodium 1 each 06/09/24 09:00 06/09/24 10:22 Sennosides-Docusate Sodium 1 Each Tab PO 07/09/24 08:59 1 each DAILY MIKE Administration Tramadol HCl 50 mg 06/08/24 11:00 Tramadol 50 Mg Tab PO 07/08/24 10:59 Q6HR PRN Pain Scale 4 - 6 Valsartan 80 mg 06/08/24 21:00 06/08/24 20:32 Valsartan 80 Mg Tab PO 07/08/24 20:59 80 mg HS MIKE Administration Intake and Output 06/08/24 06/09/24 06/09/24 22:59 06:59 14:59 Intake Total 425 Output Total 700 350 350 Balance -275 -350 -350 Intake: Intake, IV Titration 425 Amount Sodium Chloride 0.9% 1, 375 000 ml @ 75 mls/hr IV . [id number] [facility] Rx#:[id number] ceFAZolin 2 gm In Sodium 50 Chloride 0.9% 50 ml @ 100 mls/hr IVPB Q8HR [facility] Rx# :[id number] Output: Urine 700 350 350 Other: Voiding Method Indwelling Catheter Toilet # Voids 1 06/09/24 03:43 06/09/24 03:43
[2024-06-09] MEDS ORDERED: DILTIAZEM ORAL 30 MG TAB PO SCH (15:00)
[2024-06-09] MEDS: METOPROLOL SUCCINATE (ER) 25 MG TAB.ER.24H PO STA (15:24)
--- NOTE | 2024-06-09 16:13 | P.PN ---
Progress Note - Text Progress Note Date: 06/09/24 - Chief Complaint Lumbar surgery - History of Present Illness Very pleasant 64-year-old patient who follows with Dr. Leigh. Chronic medical conditions include hypertension, hyperlipidemia, GERD, CAD with stent around 2012, atrial fibrillation. Patient takes Eliquis for the latter. And amiodarone. Patient been having lower back pain for several years. Much worse in the last 1 year. Specially with walking and much much worse and static standing. Pain did not radiate down the leg. No interference with bowel or urine. Patient is undergone lumbar surgery. EBL 250 cc. Postprocedure patient lying in bed. No drain present. Pain around 5/10. No nausea vomiting. Tired. at the bedside. June 09: Patient did use a rolling walker and walked 6 feet with physical therapy. Pain is present. Decreased appetite. A bit tired. at the bedside. Patient has been in A-fib heart rate around 120s. Getting Toprol-XL 50. Cardiology consulted. Extra dose of Toprol-XL 25 mg given by them. Patient had ablation by Dr. Benedict Chandra earlier this year. Daily Active Medications Acetaminophen (Acetaminophen Tab 325 Mg Tab) 650 mg PO Q6HR [facility] Stop: 07/08/24 11:59 Last Admin: 06/09/24 13:25 Dose: 650 mg Hydrocodone Bitart/Acetaminophen (Hydrocodone/Apap 5-325mg 1 Each Tab) 1 each PO Q4HR PRN PRN Reason: Pain Stop: 07/08/24 10:55 Last Admin: 06/09/24 15:24 Dose: 1 each Amiodarone HCl (Amiodarone 200 Mg Tab) 200 mg PO DAILY [facility] Stop: 07/09/24 08:59 Last Admin: 06/09/24 10:23 Dose: 200 mg Apixaban (Apixaban 5 Mg Tab) 5 mg PO BID [facility]; Protocol Stop: 07/09/24 08:59 Last Admin: 06/09/24 10:28 Dose: 5 mg Atorvastatin Calcium (Atorvastatin 20 Mg Tab) 20 mg PO DAILY [facility] Stop: 07/09/24 08:59 Last Admin: 06/09/24 10:23 Dose: 20 mg Benzocaine/Menthol (Benzocaine/Menthol Lozeng 1 Each Lozenge) 1 each MUCOUS MEM Q4HR PRN PRN Reason: Sore Throat Stop: 07/08/24 10:55 Lactated Ringer's (Lactated Ringers) 1,000 mls @ 20 mls/hr IV .Q24H [facility] Stop: 07/08/24 05:57 Last Admin: 06/08/24 07:13 Dose: 20 mls/hr Sodium Chloride (Saline 0.9%) 1,000 mls @ 75 mls/hr IV .[id number] [facility] Stop: 07/08/24 10:59 Last Admin: 06/09/24 04:08 Dose: Not Given Lidocaine HCl (Lidocaine 1% (10mg/Ml) For Iv Start) 0.1 ml INTRADERMA PER PROTOCOL PRN PRN Reason: IV Start Stop: 07/08/24 05:57 Metoprolol Succinate (Metoprolol Succinate (Er) 50 Mg Tab.Er.24h) 50 mg PO HS [facility] Stop: 07/08/24 20:59 Last Admin: 06/08/24 15:24 Dose: 50 mg Morphine Sulfate (Morphine Sulfate 2 Mg/Ml Syringe) 2 mg IVP Q4HR PRN PRN Reason: Pain/Discomfort Stop: 07/08/24 10:57 Last Admin: 06/08/24 16:57 Dose: 2 mg Ondansetron HCl (Ondansetron 4 Mg/2 Ml Vial) 4 mg IVP Q8HR PRN PRN Reason: Nausea And Vomiting Stop: 07/08/24 10:59 Senna/Docusate Sodium (Sennosides-Docusate Sodium 1 Each Tab) 1 each PO DAILY [facility] Stop: 07/09/24 08:59 Last Admin: 06/09/24 10:22 Dose: 1 each Tramadol HCl (Tramadol 50 Mg Tab) 50 mg PO Q6HR PRN PRN Reason: Pain Scale 4 - 6 Stop: 07/08/24 10:59 Valsartan (Valsartan 80 Mg Tab) 80 mg PO HS [facility] Stop: 07/08/24 20:59 Last Admin: 06/08/24 20:32 Dose: 80 mg Physical examination: VITAL SIGNS: 99, 124, 24, 129/84, 94% on 4 L GENERAL: Laying in bed, tired. EYES: Pupils equal. Conjunctiva tarsha l. HEENT: External appearance of nose and ears normal, oral cavity grossly normal. NECK: JVD not raised; masses not palpable. HEART: Heart sounds regular, no edema. LUNGS: Respiratory rate normal; clear to auscultation. ABDOMEN: Soft, nontender, liver spleen not palpable, no masses palpable. PSYCH: Alert and oriented x3; mood and affect tarsha l. MUSCULOSKELETAL:No Clubbing/cyanosis;muscles-grossly intact. Dressing over the surgical incision INVESTIGATIONS, reviewed in the clinical context: June 09: White count 13.9 hemoglobin 11.6 platelets 176 potassium 4.1 creatinine 0.9 May 17, 2024: White count 9.4 hemoglobin 13.7 platelets 236 sodium 144 potassium 4.1 creatinine 1.0 Assessment plan: -Laminectomy and decompression L4-L5, discectomy etc. for make spondylolisthesis L4-L5, facet arthrosis L4-L5, lower extremity radiculopathy, low back pain, foraminal stenosis L4-L5. -Paroxysmal atrial fibrillation, rate uncontrolled Elementary. Toprol-XL 50 mg nightly. Eliquis. Amiodarone. Cardiology consulted. Extra dose of 25 mg XL Toprol given. -Acute postprocedure blood loss anemia expected from surgery Add ferrous sulfate -CAD with stent in 2012 Eliquis. Toprol-XL -Essential hypertension Valsartan 80 mg nightly -Hyperlipidemia Lipitor 20 mg a day -Obesity BMI 36.2 Weight loss measures A-fib uncontrolled. Cardiology consulted. Other medications to continue. Add ferrous sulfate. Thank you Dr. Braden Past Medical History Past Medical History: Atrial Fibrillation, Coronary Artery Disease (CAD), Chest Pain / Angina, GERD/Reflux, Myocardial Infarction ([place]), Mitral Valve Prolapse (MVP), Osteoarthritis (OA), Syncope Additional Past Medical History / Comment(s): [place] in 2013 with cardiac arrest/V FIB, MIGRAINE HEADACHE, TORN RETINA RT SIDE Last Myocardial Infarction Date:: 2012 History of Any Multi-Drug Resistant Organisms: None Reported Past Surgical History: Appendectomy, Cardiac Ablation, Heart Catheterization With Stent, Orthopedic Surgery, Uterine Ablation Additional Past Surgical History / Comment(s): D&C, [facility], RT KNEE SCOPE, RT RETINA REPAIR Past Anesthesia/Blood Transfusion Reactions: No Reported Reaction, Motion Sickness Date of Last Stent Placement:: 2012 Past Psychological History: No Psychological Hx Reported Additional Psychological History / Comment(s): . Smoking Status: Never smoker Past Alcohol Use History: None Reported Past Drug Use History: None Reported
[2024-06-09] MEDS: FERROUS SULFATE 325 MG TAB PO SCH (17:48)
--- NOTE | 2024-06-10 08:13 | P.PN ---
Progress Note - Text Progress Note Date: 06/10/24 Postoperative day #2 Patient is seen and examined today at bedside. The patient has some pain around the surgical site as expected, but she is able to get out of bed and transfer to a chair with a walker and standby assist. Pain is being controlled with medication. She is still feeling slightly short of breath. She is requiring 2 L of oxygen at 92% saturation Physical Exam Afebrile Her pulse remains at 120 or so. She is requiring oxygen nasal cannula. It had been on 4 L and earlier they did switch it down to 2 L and she is only at 92% Abdomen is soft nontender. Chest has good excursion deep and space expiration The incision site is clean dry and intact. No erythema there is no purulence. Extremities have not had neurologic change from prior to surgery. Calves and thighs were soft nontender without evidence of DVT. Assessment/Plan Postoperative day #2 status post minimally base of decompression fusion L4-5 for her spondylolisthesis with foraminal stenosis Tachycardia with atrial fibrillation Diminished oxygen saturation on nasal cannula at 92% on 2 L The patient did have recent COVID about 6 weeks ago. She recovered uneventfully. I think is worthwhile to check a new x-ray to further evaluate her lung guerra. It will be ordered today. Will have medicine follow-up on this in regards to her oxygen saturation and breathing. Cardiology is also seeing her now in regards to her tachycardia. She was placed on some metoprolol increased dose yesterday but her rate is still somewhat high. This will need to be monitored closely Patient is progressing as expected from the surgery in terms of her back pain and her mobility. We will continue to increase the patient's mobilization with therapy. We will continue pain control with oral or IV medications. With her saturation in her tachycardia we will keep her until we can get this settled to a stable appropriate status before we would consider any discharge home. Potentially in the next 1 or 2 days if she makes improvement. We'll continue to follow patient closely.
--- NOTE | 2024-06-10 08:49 | XR ---
EXAMINATION TYPE: XR chest 2V DATE OF EXAM: 06/10/2024 8:28 AM COMPARISON: Chest radiographs from 05/17/2024 CLINICAL INDICATION: Female, 64 years old with history of decreased spo2 post op; TECHNIQUE: XR chest 2V Frontal and lateral views of the chest. FINDINGS: Lungs/Pleura: Low lung lines with blunting of the costophrenic angle. Here is no evidence of left ple ural effusion, focal consolidation, or pneumothorax. Pulmonary vascularity: Unremarkable. Heart/mediastinum: Cardiomediastinal silhouette is unremarkable. Musculoskeletal: No acute osseous pathology. Other findings: None IMPRESSION: Small right pleural effusion with associated atelectasis. [facility], , 06/10/2024 8:46 AM
[2024-06-10] MEDS: METOPROLOL SUCCINATE (ER) 50 MG TAB.ER.24H PO SCH (12:19)
--- NOTE | 2024-06-10 12:49 | P.PN ---
Subjective Progress Note Date: 06/10/24 This is a 64-year-old female patient of Dr. Bolaños with past medical history of paroxysmal atrial fibrillation status post ablation, CAD, hyperlipidemia, hypertension. We have been asked to evaluate the patient for uncontrolled atrial fibrillation. Patient had an ablation done on February 18, 2024 and she f eels she has been in a sinus rhythm for a while after that until she came down with COVID about 9 weeks ago. She states she has had more problems going in and out of atrial fibrillation since then. Patient came into the hospital under the care of of orthopedic spine and is status post laminectomy and decompression L4- 5 on 06/08. Patient has been resumed back on her cardiac medications but despi te that, she has been running in the 120s on telemetry which was initiated yesterday around 4 PM. Patient denies having palpitations, lightheadedness or dizziness. She just states that she feels weak. Blood pressure 108/67, telemetry is 120 bpm, atrial fibrillation. Pulse ox 94% on 4 L. Laboratory studies: WBC 13.9, hemoglobin 9.6, platelet count 176. Sodium 135, potassium 4.1, BUN 11 creatinine 0.9. Home cardiac medications: Amiodarone 200 mg daily, Eliquis 5 mg twice daily, atorvastatin 20 mg daily, Toprol-XL 50 mg at bedtime, valsartan 80 mg at bedtime. Cardiac catheterization performed 12/10/2023 revealed normal EF, normal coronaries, right dominance. 10/2012: Stent to the mid PLB and PTCA mid PLB. Echocardiogram performed 12/09/2023 revealed normal EF, mild MR, mild TR. Atrial fibrillation ablation performed on 02/18/2024. 06/10 Patient remains in atrial fibrillation running in the 120s. Yesterday Toprol was increased to 50 mg daily. Patient is not able to tolerate Cardizem due to vomiting. Blood pressure 134/85, heart rate 123, pulse ox 94% on 4 L nasal cannula. Physical examination: Gen: This is a 64-year-old female in no acute distress VS: reviewed HEENT: Head is atraumatic, normocephalic. Pupils equal, round. Sclerae is anicteric. NECK: Supple. No JVD. LUNGS: Clear to auscultation. No wheezes or rhonchi. No intercostal retractions. HEART: Irregular rate and rhythm. Systolic murmur. ABDOMEN: Soft No tenderness. EXTREMITIES: No pedal edema. No calf tenderness. NEUROLOGICAL: Patient is awake, alert and oriented x3. Assessment: Paroxysmal atrial fibrillation with RVR History of A-fib ablation Recent COVID-19 approximately 9 weeks ago CAD with stent and PTCA 2013 Hyperlipidemia Hypertension Plan: Continue patient's home cardiac medications: Amiodarone 200 mg daily, Eliquis 5 mg twice daily, atorvastatin 20 mg daily, valsartan 80 mg at bedtime Increase frequency of Toprol XL 50 mg to twice daily Patient is unable to tolerate Cardizem due to vomiting Continue telemetry monitoring Further recommendations to follow based upon clinical course Nurse practitioner note has been reviewed, I agree with documented findings and plan of care. Patient was seen and examined. Objective - Vital Signs Vital signs: Vital Signs Temp 98.8 F 06/10/24 08:00 Pulse 126 H 06/10/24 08:00 Resp 20 06/10/24 08:00 BP 117/81 06/10/24 08:00 Pulse Ox 93 L 06/10/24 08:00 FiO2 Intake & Output 06/09/24 06/10/24 06/10/24 18:59 06:59 18:59 Intake Total 540 Output Total 350 Balance -350 540 Intake: Oral 540 Output: Urine 350 Other: Voiding Method Toilet Toilet # Voids 3 4 - Labs CBC & Chem 7: 06/09/24 03:43 06/09/24 03:43
[2024-06-10] MEDS: FUROSEMIDE 10 MG/ML 4 ML VIAL IV STA (16:20)
--- NOTE | 2024-06-10 16:27 | P.PN ---
Progress Note - Text Progress Note Date: 06/10/24 - Chief Complaint Lumbar surgery - History of Present Illness Very pleasant 64-year-old patient who follows with Dr. Leigh. Chronic medical conditions include hypertension, hyperlipidemia, GERD, CAD with stent around 2012, atrial fibrillation. Patient takes Eliquis for the latter. And amiodarone. Patient been having lower back pain for several years. Much worse in the last 1 year. Specially with walking and much much worse and static standing. Pain did not radiate down the leg. No interference with bowel or urine. Patient is undergone lumbar surgery. EBL 250 cc. Postprocedure patient lying in bed. No drain present. Pain around 5/10. No nausea vomiting. Tired. at the bedside. June 09: Patient did use a rolling walker and walked 6 feet with physical therapy. Pain is present. Decreased appetite. A bit tired. at the bedside. Patient has been in A-fib heart rate around 120s. Getting Toprol-XL 50. Cardiology consulted. Extra dose of Toprol-XL 25 mg given by them. Patient had ablation by Dr. Benedict Chandra earlier this year. June 10: Saw the patient this morning. Pain is reasonable. Decreased appetite. Pulse ox is running borderline. Told the patient to sit up. Or even edge of the bed. Use incentive spirometry. Chest x-ray showed pulm edema. Stop IV fluids. Gave 1 dose of IV Lasix 40 mg. Did communicate with the nurse to see if Dr. Maria will the patient Dr. Benedict Chandra to see the patient who did recent ablation. Active Medications Acetaminophen (Acetaminophen Tab 325 Mg Tab) 650 mg PO Q6HR [facility] Stop: 07/08/24 11:59 Last Admin: 06/10/24 13:15 Dose: Not Given Hydrocodone Bitart/Acetaminophen (Hydrocodone/Apap 5-325mg 1 Each Tab) 1 each PO Q4HR PRN PRN Reason: Pain Stop: 07/08/24 10:55 Last Admin: 06/10/24 16:12 Dose: 1 each Amiodarone HCl (Amiodarone 200 Mg Tab) 200 mg PO DAILY [facility] Stop: 07/09/24 08:59 Last Admin: 06/10/24 10:06 Dose: 200 mg Apixaban (Apixaban 5 Mg Tab) 5 mg PO BID [facility]; Protocol Stop: 07/09/24 08:59 Last Admin: 06/10/24 10:06 Dose: 5 mg Atorvastatin Calcium (Atorvastatin 20 Mg Tab) 20 mg PO DAILY [facility] Stop: 07/09/24 08:59 Last Admin: 06/10/24 10:06 Dose: 20 mg Benzocaine/Menthol (Benzocaine/Menthol Lozeng 1 Each Lozenge) 1 each MUCOUS MEM Q4HR PRN PRN Reason: Sore Throat Stop: 07/08/24 10:55 Ferrous Sulfate (Ferrous Sulfate 325 Mg Tab) 325 mg PO W/LUNCH [facility] Last Admin: 06/10/24 12:19 Dose: 325 mg Lactated Ringer's (Lactated Ringers) 1,000 mls @ 20 mls/hr IV .Q24H [facility] Stop: 07/08/24 05:57 Last Admin: 06/08/24 07:13 Dose: 20 mls/hr Lidocaine HCl (Lidocaine 1% (10mg/Ml) For Iv Start) 0.1 ml INTRADERMA PER PROTOCOL PRN PRN Reason: IV Start Stop: 07/08/24 05:57 Metoprolol Succinate (Metoprolol Succinate (Er) 50 Mg Tab.Er.24h) 50 mg PO BID [facility] Stop: 07/08/24 20:59 Last Admin: 06/10/24 12:19 Dose: 50 mg Morphine Sulfate (Morphine Sulfate 2 Mg/Ml Syringe) 2 mg IVP Q4HR PRN PRN Reason: Pain/Discomfort Stop: 07/08/24 10:57 Last Admin: 06/08/24 16:57 Dose: 2 mg Ondansetron HCl (Ondansetron 4 Mg/2 Ml Vial) 4 mg IVP Q8HR PRN PRN Reason: Nausea And Vomiting Stop: 07/08/24 10:59 Senna/Docusate Sodium (Sennosides-Docusate Sodium 1 Each Tab) 1 each PO DAILY [facility] Stop: 07/09/24 08:59 Last Admin: 06/10/24 10:06 Dose: 1 each Tramadol HCl (Tramadol 50 Mg Tab) 50 mg PO Q6HR PRN PRN Reason: Pain Scale 4 - 6 Stop: 07/08/24 10:59 Valsartan (Valsartan 80 Mg Tab) 80 mg PO HS [facility] Stop: 07/08/24 20:59 Last Admin: 06/09/24 19:47 Dose: 80 mg Physical examination: VITAL SIGNS: 98, 123, 22, 104/72, 92% on 2 L GENERAL: Laying in bed, tired. EYES: Pupils equal. Conjunctiva tarsha l. HEENT: External appearance of nose and ears normal, oral cavity grossly normal. NECK: JVD not raised; masses not palpable. HEART: Irregular heart sounds r, no edema. LUNGS: Respiratory rate increased, some decreased breath sound. ABDOMEN: Soft, nontender, liver spleen not palpable, no masses palpable. PSYCH: Alert and oriented x3; mood and affect tarsha l. MUSCULOSKELETAL:No Clubbing/cyanosis;muscles-grossly intact. Dressing over the surgical incision INVESTIGATIONS, reviewed in the clinical context: June 09: White count 13.9 hemoglobin 11.6 platelets 176 potassium 4.1 creatinine 0.9 May 17, 2024: White count 9.4 hemoglobin 13.7 platelets 236 sodium 144 potassium 4.1 creatinine 1.0 Assessment plan: -Laminectomy and decompression L4-L5, discectomy etc. for make spondylolisthesis L4-L5, facet arthrosis L4-L5, lower extremity radiculopathy, low back pain, foraminal stenosis L4-L5. -Paroxysmal atrial fibrillation, currently in atrial fibrillation rate uncontrolled About 3 months ago patient Telemetry. Increased Toprol-XL 50 mg twice daily eliquis. Amiodarone. Cardiology following -Acute pulmonary edema, probably contributed by uncontrolled A-fib. Stop IV fluids. IV Lasix 40 mg x 1. -Acute postprocedure blood loss anemia expected from surgery Ferrous sulfate -CAD with stent in 2012 Eliquis. Toprol-XL -Essential hypertension Valsartan 80 mg nightly -Hyperlipidemia Lipitor 20 mg a day -Obesity BMI 36.2 Weight loss measures Stop IV fluids. IV Lasix 40 mg. Discussed with patient . Thank you Dr. Braden Past Medical History Past Medical History: Atrial Fibrillation, Coronary Artery Disease (CAD), Chest Pain / Angina, GERD/Reflux, Myocardial Infarction ([place]), Mitral Valve Prolapse (MVP), Osteoarthritis (OA), Syncope Additional Past Medical History / Comment(s): ID in 2013 with cardiac arrest/V FIB, MIGRAINE HEADACHE, TORN RETINA RT SIDE Last Myocardial Infarction Date:: 2012 History of Any Multi-Drug Resistant Organisms: None Reported Past Surgical History: Appendectomy, Cardiac Ablation, Heart Catheterization With Stent, Orthopedic Surgery, Uterine Ablation Additional Past Surgical History / Comment(s): D&C, MART[facility]N CTR, RT KNEE SCOPE, RT RETINA REPAIR Past Anesthesia/Blood Transfusion Reactions: No Reported Reaction, Motion Sickness Date of Last Stent Placement:: 2012 Past Psychological History: No Psychological Hx Reported Additional Psychological History / Comment(s): . Smoking Status: Never smoker Past Alcohol Use History: None Reported Past Drug Use History: None Reported
[2024-06-11 06:43] LABS: African American GFR (CKD) >90 (>60 ml/min/1.73 sqM); Anion Gap 2 mmol/L; Blood Urea Nitrogen 6 mg/dL (7-17); Calcium 7.9 mg/dL (8.4-10.2); Carbon Dioxide 33 mmol/L (22-30); Chloride 98 mmol/L (98-107); Glucose 89 mg/dL (74-99); Non-African American GFR(CKD) >90 (>60 ml/min/1.73 sqM); Sodium 133 mmol/L (137-145)
--- NOTE | 2024-06-11 07:33 | P.PN ---
Subjective Progress Note Date: 06/11/24 The patient is a pleasant 64-year-old female patient with a past medical history significant for paroxysmal atrial fibrillation as well as hypertension and dyslipidemia with history of atrial fibrillation ablation in the past was admitted to the hospital and underwent back surgery that was complicated by A- fib with RVR and controlled on the current dose of amiodarone as well as beta- lon. The most recent echo showed preserved LV systolic function June 11, 2024 The patient was seen and evaluated this morning. She is in atrial fibrillation with RVR with an average heart rate around 120 bpm and she is symptomatic with that. I am considering starting the patient on Cardizem IV and continue the rest of the current medical regimen including amiodarone orally. The patient need to be transferred out of 4 S. Examination is remarkable for irregular rhythm with soft systolic murmur and clear breathing sounds bilaterally and no edema was noted Assessment Atrial fibrillation with uncontrolled heart rate Status post back surgery Multiple comorbid conditions Plan Continue the current medical regimen including oral anticoagulation Start the patient on Cardizem IV Follow-up with the patient Objective - Vital Signs Vital signs: Vital Signs Temp 98.0 F 06/11/24 02:00 Pulse 118 H 06/11/24 02:43 Resp 20 06/11/24 02:00 BP 124/82 06/11/24 02:00 Pulse Ox 93 L 06/11/24 02:00 FiO2 Intake & Output 06/10/24 06/11/24 06/11/24 18:59 06:59 18:59 Intake Total 520 Balance 520 Intake: Oral 520 Other: Voiding Method Toilet # Voids 2 7 - Labs CBC & Chem 7: 06/09/24 03:43 06/09/24 03:43
[2024-06-11 08:02] LABS: Potassium 3.3 mmol/L (3.5-5.1)
--- NOTE | 2024-06-11 08:12 | P.PN ---
Progress Note - Text Progress Note Date: 06/11/24 Postoperative day #3 Patient is seen and examined today at bedside. The patient has some pain around the surgical site as expected, she is getting in and out of bed but still requiring standby assistance with her walker. Pain is being controlled with medication. Medicine and cardiology saw her yesterday. She is still tachycardic in atrial fibrillation. She still requiring 2 L nasal cannula and is saturating in the mid 90s. Physical Exam Afebrile, blood pressure 130/70, her pulse is in the 120s. Her saturation is at about 94% on 2 L nasal cannula this morning Abdomen is soft nontender. Chest has good excursion deep and space expiration The incision site is clean dry and intact. No erythema there is no purulence. Extremities have not had neurologic change from prior to surgery. She has sustained dorsiflexion plantarflexion EHL intact Calves and thighs were soft nontender without evidence of DVT. Assessment/Plan Postoperative day #3 status post minimally invasive decompression fusion L4-5 for her spondylolisthesis with stenosis Atrial fibrillation, uncontrolled rate The patient has not responded to oral medications to control her cardiac rate. She has plans to move to cardiac floor for closer evaluation and Cardizem drip IV. Medicine and cardiology are managing this appropriately. Apparently there are no rooms on telemetry floor and she is going to the intensive care unit bed for monitoring. Her pressure remains stable. In regards to her low back pain patient is progressing as expected from the surgery. She is mobilizing better each day and her wound remains clear We will continue to increase the patient's mobilization with therapy. We will continue pain control with oral or IV medications. We'll continue to follow patient closely.
[2024-06-11 08:38] LABS: Glucose,Whole Blood 122 mg/dL (70-110)
[2024-06-11] MEDS: DILTIAZEM 125 MG in SODIUM CHLORIDE 0.9% 100 ML IV SCH (08:43)
[2024-06-11] MEDS: ONDANSETRON 4 MG/2 ML VIAL IVP PRN (08:44)
[2024-06-11] MEDS: FUROSEMIDE 10 MG/ML 2 ML VIAL IV ONE (13:19)
--- NOTE | 2024-06-11 13:52 | P.PN ---
Progress Note - Text Progress Note Date: 06/11/24 - Chief Complaint Lumbar surgery - History of Present Illness Very pleasant 64-year-old patient who follows with Dr. Leigh. Chronic medical conditions include hypertension, hyperlipidemia, GERD, CAD with stent around 2012, atrial fibrillation. Patient takes Eliquis for the latter. And amiodarone. Patient been having lower back pain for several years. Much worse in the last 1 year. Specially with walking and much much worse and static standing. Pain did not radiate down the leg. No interference with bowel or urine. Patient is undergone lumbar surgery. EBL 250 cc. Postprocedure patient lying in bed. No drain present. Pain around 5/10. No nausea vomiting. Tired. at the bedside. June 09: Patient did use a rolling walker and walked 6 feet with physical therapy. Pain is present. Decreased appetite. A bit tired. at the bedside. Patient has been in A-fib heart rate around 120s. Getting Toprol-XL 50. Cardiology consulted. Extra dose of Toprol-XL 25 mg given by them. Patient had ablation by Dr. Benedict Chandra earlier this year. June 10: Saw the patient this morning. Pain is reasonable. Decreased appetite. Pulse ox is running borderline. Told the patient to sit up. Or even edge of the bed. Use incentive spirometry. Chest x-ray showed pulm edema. Stop IV fluids. Gave 1 dose of IV Lasix 40 mg. Did communicate with the nurse to see if Dr. Maria will the patient Dr. Benedict Chandra to see the patient who did recent ablation. June 11: Patient A-fib remained uncontrolled. Moved by cardiology to the ICU. Heart rate remains in the 120s. Started on IV Cardizem drip. Breathing is better. at the bedside. Will give another dose of Lasix 20 mg IV to cut back on the preload. Active Medications Acetaminophen (Acetaminophen Tab 325 Mg Tab) 650 mg PO Q6HR [facility] Stop: 07/08/24 11:59 Last Admin: 06/11/24 13:28 Dose: Not Given Hydrocodone Bitart/Acetaminophen (Hydrocodone/Apap 5-325mg 1 Each Tab) 1 each PO Q4HR PRN PRN Reason: Pain Stop: 07/08/24 10:55 Last Admin: 06/11/24 13:18 Dose: 1 each Amiodarone HCl (Amiodarone 200 Mg Tab) 200 mg PO DAILY [facility] Stop: 07/09/24 08:59 Last Admin: 06/11/24 10:06 Dose: 200 mg Apixaban (Apixaban 5 Mg Tab) 5 mg PO BID [facility]; Protocol Stop: 07/09/24 08:59 Last Admin: 06/11/24 10:06 Dose: 5 mg Atorvastatin Calcium (Atorvastatin 20 Mg Tab) 20 mg PO DAILY [facility] Stop: 07/09/24 08:59 Last Admin: 06/11/24 10:06 Dose: 20 mg Benzocaine/Menthol (Benzocaine/Menthol Lozeng 1 Each Lozenge) 1 each MUCOUS MEM Q4HR PRN PRN Reason: Sore Throat Stop: 07/08/24 10:55 Ferrous Sulfate (Ferrous Sulfate 325 Mg Tab) 325 mg PO W/LUNCH [facility] Last Admin: 06/11/24 13:19 Dose: 325 mg Lactated Ringer's (Lactated Ringers) 1,000 mls @ 20 mls/hr IV .Q24H [facility] Stop: 07/08/24 05:57 Last Admin: 06/11/24 02:18 Dose: Not Given Diltiazem HCl 125 mg/ Sodium (Chloride) 125 mls @ 10 mls/hr IV .[id number] [facility] Last Admin: 06/11/24 08:43 Dose: 5 mg/hr, 5 mls/hr Lidocaine HCl (Lidocaine 1% (10mg/Ml) For Iv Start) 0.1 ml INTRADERMA PER PROTOCOL PRN PRN Reason: IV Start Stop: 07/08/24 05:57 Metoprolol Succinate (Metoprolol Succinate (Er) 50 Mg Tab.Er.24h) 50 mg PO BID [facility] Stop: 07/08/24 20:59 Last Admin: 06/11/24 10:09 Dose: 50 mg Morphine Sulfate (Morphine Sulfate 2 Mg/Ml Syringe) 2 mg IVP Q4HR PRN PRN Reason: Pain/Discomfort Stop: 07/08/24 10:57 Last Admin: 06/08/24 16:57 Dose: 2 mg Ondansetron HCl (Ondansetron 4 Mg/2 Ml Vial) 4 mg IVP Q8HR PRN PRN Reason: Nausea And Vomiting Stop: 07/08/24 10:59 Last Admin: 06/11/24 08:44 Dose: 4 mg Senna/Docusate Sodium (Sennosides-Docusate Sodium 1 Each Tab) 1 each PO DAILY [facility] Stop: 07/09/24 08:59 Last Admin: 06/11/24 10:06 Dose: 1 each Tramadol HCl (Tramadol 50 Mg Tab) 50 mg PO Q6HR PRN PRN Reason: Pain Scale 4 - 6 Stop: 07/08/24 10:59 Valsartan (Valsartan 80 Mg Tab) 80 mg PO HS [facility] Stop: 07/08/24 20:59 Last Admin: 06/10/24 19:50 Dose: 80 mg Physical examination: VITAL SIGNS: 134, 26, 127 x 93, 92% on 2 L GENERAL: Laying in bed, less tired EYES: Pupils equal. Conjunctiva tarsha l. HEENT: External appearance of nose and ears normal, oral cavity grossly normal. NECK: JVD not raised; masses not palpable. HEART: Irregular heart sounds r, no edema. LUNGS: Respiratory rate increased, decreased basal breath sounds. ABDOMEN: Soft, nontender, liver spleen not palpable, no masses palpable. PSYCH: Alert and oriented x3; mood and affect tarsha l. MUSCULOSKELETAL:No Clubbing/cyanosis;muscles-grossly intact. Dressing over the surgical incision INVESTIGATIONS, reviewed in the clinical context: May 11: Sodium 133 potassium 3.3 creatinine 0.57 Chest x-ray-pulm edema June 09: White count 13.9 hemoglobin 11.6 platelets 176 potassium 4.1 creatinine 0.9 May 17, 2024: White count 9.4 hemoglobin 13.7 platelets 236 sodium 144 potassium 4.1 creatinine 1.0 Assessment plan: -Laminectomy and decompression L4-L5, discectomy etc. for make spondylolisthesis L4-L5, facet arthrosis L4-L5, lower extremity radiculopathy, low back pain, foraminal stenosis L4-L5. -Paroxysmal atrial fibrillation, currently in atrial fibrillation rate uncontrolled About 3 months ago patient had intervention by Dr. Seferino Chandra. Telemetry. Toprol-XL 50 mg twice daily eliquis. Amiodarone. Cardiology following IV Cardizem drip started -Acute pulmonary edema, probably contributed by uncontrolled A-fib. IV Lasix 40 mg x 1. Yesterday. Repeat 20 mg IV today. -Acute postprocedure blood loss anemia expected from surgery Ferrous sulfate -CAD with stent in 2013 [facility]. Toprol-XL -Essential hypertension Valsartan 80 mg nightly -Hyperlipidemia Lipitor 20 mg a day -Obesity BMI 36.2 Weight loss measures Repeat IV Lasix 20 mg today. Cardizem drip. Discussed with cardiology patient may need cardioversion depending on clinical course. Discussed with patient and . Thank you Dr. Braden Past Medical History Past Medical History: Atrial Fibrillation, Coronary Artery Disease (CAD), Chest Pain / Angina, GERD/Reflux, Myocardial Infarction ([place]), Mitral Valve Prolapse (MVP), Osteoarthritis (OA), Syncope Additional Past Medical History / Comment(s): [place] in 2013 with cardiac arrest/V FIB, MIGRAINE HEADACHE, TORN RETINA RT SIDE Last Myocardial Infarction Date:: 2012 History of Any Multi-Drug Resistant Organisms: None Reported Past Surgical History: Appendectomy, Cardiac Ablation, Heart Catheterization With Stent, Orthopedic Surgery, Uterine Ablation Additional Past Surgical History / Comment(s): D&C, [facility], RT KNEE SCOPE, RT RETINA REPAIR Past Anesthesia/Blood Transfusion Reactions: No Reported Reaction, Motion Sickness Date of Last Stent Placement:: 2012 Past Psychological History: No Psychological Hx Reported Additional Psychological History / Comment(s): . Smoking Status: Never smoker Past Alcohol Use History: None Reported Past Drug Use History: None Reported
[2024-06-11] MEDS: POTASSIUM CHLORIDE ER 20 MEQ TAB.ER PO STA (16:58)
--- NOTE | 2024-06-12 07:27 | P.PN ---
Subjective Progress Note Date: 06/12/24 The patient is a pleasant 64-year-old female patient with a past medical history significant for paroxysmal atrial fibrillation as well as hypertension and dyslipidemia with history of atrial fibrillation ablation in the past was admitted to the hospital and underwent back surgery that was complicated by A- fib with RVR and controlled on the current dose of amiodarone as well as beta- lon. The most recent echo showed preserved LV systolic function June 11, 2024 The patient was seen and evaluated this morning. She is in atrial fibrillation with RVR with an average heart rate around 120 bpm and she is symptomatic with that. I am considering starting the patient on Cardizem IV and continue the rest of the current medical regimen including amiodarone orally. The patient need to be transferred out of 4 S. Examination is remarkable for irregular rhythm with soft systolic murmur and clear breathing sounds bilaterally and no edema was noted June 12, 2024 The patient was seen and evaluated this morning. She remains in atrial fibrillation/flutter with a better controlled heart rate on the current dose of Cardizem IV she is on. Beside that she is on beta-lon. Also she is on oral anticoagulation but if she remains in the heart rhythm later on today I would consider doing a CINDY and cardioversion on her tomorrow. The examination is remarkable for irregular rhythm with a soft systolic murmur and clear breathing sounds bilaterally and no edema was noted. Assessment Atrial fibrillation with uncontrolled heart rate Status post back surgery Multiple comorbid conditions Plan Continue the current medical regimen including the current dose of Cardizem IV DC valsartan in the light of low blood pressure Continue oral anticoagulation Consider CINDY cardioversion if she remains in atrial fibrillation Objective - Vital Signs Vital signs: Vital Signs Temp 97.7 F 06/12/24 03:44 Pulse 94 06/12/24 03:44 Resp 20 06/12/24 03:44 BP 118/72 06/12/24 03:44 Pulse Ox 91 L 06/12/24 03:44 FiO2 Intake & Output 06/11/24 06/12/24 06/12/24 19:59 06:59 18:59 Intake Total Output Total Balance Weight Intake: IV Diltiazem 125 mg In Sodium Chloride 0.9% 100 ml @ 10 MG/HR 10 mls/hr IV .[id number] [facility] Rx#: [id number] Intake, IV Titration Amount Diltiazem 125 mg In Sodium Chloride 0.9% 100 ml @ 10 MG/HR 10 mls/hr IV .[id number] [facility] Rx#: [id number] Oral Output: Urine Other: Voiding Method # Voids - Labs CBC & Chem 7: 06/09/24 03:43 06/11/24 05:49 Labs: Abnormal Lab Results - Last 24 Hours (Table) 06/11/24 Range/Units 08:36 POC Glucose (mg/dL) 122 H (70-110) mg/dL
[2024-06-12 07:44] LABS: African American GFR (CKD) >90 (>60 ml/min/1.73 sqM); Anion Gap 3 mmol/L; Blood Urea Nitrogen 7 mg/dL (7-17); Calcium 8.1 mg/dL (8.4-10.2); Carbon Dioxide 33 mmol/L (22-30); Chloride 99 mmol/L (98-107); Glucose 91 mg/dL (74-99); Non-African American GFR(CKD) >90 (>60 ml/min/1.73 sqM); Potassium 3.8 mmol/L (3.5-5.1); Sodium 135 mmol/L (137-145)
--- NOTE | 2024-06-12 08:37 | P.PN ---
Progress Note - Text Progress Note Date: 06/12/24 Postoperative day #4 Patient is seen and examined today at bedside. The patient has some pain around the surgical site as expected, but she feels like she is turning a corner in terms of her movement and her pain and it is improving steadily.. Pain is being controlled with medication. She denies any shortness of breath. She had 1 episode yesterday where she could feel her heart fluttering but now it is feeling stable. She denies any shortness of breath. She is tolerating her diet adequately Physical Exam Afebrile Her pulse is around 100 at this point. She is saturating in the low 90s on room air while eating. She is using 2 L nasal cannula at other times. Abdomen is soft nontender. Chest has good excursion deep and space expiration The incision site is clean dry and intact. No erythema there is no purulence. Extremities have not had neurologic change from prior to surgery. Calves and thighs were soft nontender without evidence of DVT. Assessment/Plan Postoperative day #4 status post minimally invasive decompression fusion L4-5 for her spondylolisthesis with stenosis Patient is progressing as expected from the surgery. We will continue to increase the patient's mobilization with therapy. We will continue pain control with oral or IV medications. We'll continue to follow patient closely. Atrial fibrillation with rapid ventricular response Patient is making some progress with the medication with orals and with the IV as per cardiology. They are considering a cardioversion which would likely happen tomorrow or CINDY. She is continuing this management as per cardiology. She will continue her medications and is okay to eat today. Overall patient seem to making some progress and is continuing her cardiac workup and treatment appropriately. She remains in good spirits with stable pressure and we will continue to follow her closely. It is okay for her to mobilize and to continue her physical therapy. Her incision site is doing well and it is okay for her to shower with the dressing intact.
--- NOTE | 2024-06-12 13:33 | P.PN ---
Progress Note - Text Progress Note Date: 06/12/24 - Chief Complaint Lumbar surgery - History of Present Illness Very pleasant 64-year-old patient who follows with Dr. Leigh. Chronic medical conditions include hypertension, hyperlipidemia, GERD, CAD with stent around 2012, atrial fibrillation. Patient takes Eliquis for the latter. And amiodarone. Patient been having lower back pain for several years. Much worse in the last 1 year. Specially with walking and much much worse and static standing. Pain did not radiate down the leg. No interference with bowel or urine. Patient is undergone lumbar surgery. EBL 250 cc. Postprocedure patient lying in bed. No drain present. Pain around 5/10. No nausea vomiting. Tired. at the bedside. June 09: Patient did use a rolling walker and walked 6 feet with physical therapy. Pain is present. Decreased appetite. A bit tired. at the bedside. Patient has been in A-fib heart rate around 120s. Getting Toprol-XL 50. Cardiology consulted. Extra dose of Toprol-XL 25 mg given by them. Patient had ablation by Dr. Benedict Chandra earlier this year. June 10: Saw the patient this morning. Pain is reasonable. Decreased appetite. Pulse ox is running borderline. Told the patient to sit up. Or even edge of the bed. Use incentive spirometry. Chest x-ray showed pulm edema. Stop IV fluids. Gave 1 dose of IV Lasix 40 mg. Did communicate with the nurse to see if Dr. Maria will the patient Dr. Benedict Chandra to see the patient who did recent ablation. June 11: Patient A-fib remained uncontrolled. Moved by cardiology to the ICU. Heart rate remains in the 120s. Started on IV Cardizem drip. Breathing is better. at the bedside. Will give another dose of Lasix 20 mg IV to cut back on the preload. June 12: Patient remains on IV Cardizem drip at 10 mg an hour. A-fib controlled. 70s. Patient was given extra dose of Lasix yesterday after which breathing much improved. Off oxygen. Seen by cardiology. Planning for possible cardioversion tomorrow. Discussed with patient . Increase activity inside the room. Active Medications Acetaminophen (Acetaminophen Tab 325 Mg Tab) 650 mg PO Q6HR [facility] Stop: 07/08/24 11:59 Last Admin: 06/12/24 12:08 Dose: 650 mg Hydrocodone Bitart/Acetaminophen (Hydrocodone/Apap 5-325mg 1 Each Tab) 1 each PO Q4HR PRN PRN Reason: Pain Stop: 07/08/24 10:55 Last Admin: 06/12/24 08:54 Dose: 1 each Amiodarone HCl (Amiodarone 200 Mg Tab) 200 mg PO DAILY [facility] Stop: 07/09/24 08:59 Last Admin: 06/12/24 08:42 Dose: 200 mg Apixaban (Apixaban 5 Mg Tab) 5 mg PO BID [facility]; Protocol Stop: 07/09/24 08:59 Last Admin: 06/12/24 08:42 Dose: 5 mg Atorvastatin Calcium (Atorvastatin 20 Mg Tab) 20 mg PO DAILY [facility] Stop: 07/09/24 08:59 Last Admin: 06/12/24 08:42 Dose: 20 mg Benzocaine/Menthol (Benzocaine/Menthol Lozeng 1 Each Lozenge) 1 each MUCOUS MEM Q4HR PRN PRN Reason: Sore Throat Stop: 07/08/24 10:55 Ferrous Sulfate (Ferrous Sulfate 325 Mg Tab) 325 mg PO W/LUNCH [facility] Last Admin: 06/12/24 12:14 Dose: 325 mg Lactated Ringer's (Lactated Ringers) 1,000 mls @ 20 mls/hr IV .Q24H [facility] Stop: 07/08/24 05:57 Last Admin: 06/12/24 04:25 Dose: Not Given Diltiazem HCl 125 mg/ Sodium (Chloride) 125 mls @ 10 mls/hr IV .[id number] [facility] Last Admin: 06/12/24 08:42 Dose: 5 mg/hr, 5 mls/hr Lidocaine HCl (Lidocaine 1% (10mg/Ml) For Iv Start) 0.1 ml INTRADERMA PER PROTOCOL PRN PRN Reason: IV Start Stop: 07/08/24 05:57 Metoprolol Succinate (Metoprolol Succinate (Er) 50 Mg Tab.Er.24h) 50 mg PO BID [facility] Stop: 07/08/24 20:59 Last Admin: 06/12/24 08:42 Dose: 50 mg Morphine Sulfate (Morphine Sulfate 2 Mg/Ml Syringe) 2 mg IVP Q4HR PRN PRN Reason: Pain/Discomfort Stop: 07/08/24 10:57 Last Admin: 06/08/24 16:57 Dose: 2 mg Ondansetron HCl (Ondansetron 4 Mg/2 Ml Vial) 4 mg IVP Q8HR PRN PRN Reason: Nausea And Vomiting Stop: 07/08/24 10:59 Last Admin: 06/11/24 08:44 Dose: 4 mg Senna/Docusate Sodium (Sennosides-Docusate Sodium 1 Each Tab) 1 each PO DAILY [facility] Stop: 07/09/24 08:59 Last Admin: 06/12/24 08:42 Dose: 1 each Tramadol HCl (Tramadol 50 Mg Tab) 50 mg PO Q6HR PRN PRN Reason: Pain Scale 4 - 6 Stop: 07/08/24 10:59 Physical examination: VITAL SIGNS: 98.9, 80, 18, 121 x 75, 93% room air GENERAL: Laying in bed, looking better EYES: Pupils equal. Conjunctiva tarsha l. HEENT: External appearance of nose and ears normal, oral cavity grossly normal. NECK: JVD not raised; masses not palpable. HEART: Irregular heart sounds r, no edema. LUNGS: Respiratory rate increased, proved air entry ABDOMEN: Soft, nontender, liver spleen not palpable, no masses palpable. PSYCH: Alert and oriented x3; mood and affect tarsha l. MUSCULOSKELETAL:No Clubbing/cyanosis;muscles-grossly intact. Dressing over the surgical incision INVESTIGATIONS, reviewed in the clinical context: May 12: Potassium 3.8 creatinine 0.53 May 11: Sodium 133 potassium 3.3 creatinine 0.57 Chest x-ray-pulm edema June 09: White count 13.9 hemoglobin 11.6 platelets 176 potassium 4.1 creatinine 0.9 May 17, 2024: White count 9.4 hemoglobin 13.7 platelets 236 sodium 144 potassium 4.1 creatinine 1.0 Assessment plan: -Laminectomy and decompression L4-L5, discectomy etc. for make spondylolisthesis L4-L5, facet arthrosis L4-L5, lower extremity radiculopathy, low back pain, foraminal stenosis L4-L5. -Paroxysmal atrial fibrillation, currently in atrial fibrillation rate better controlled About 3 months ago patient had intervention by Dr. Seferino Chandra. Telemetry. Toprol-XL 50 mg twice daily eliquis. Amiodarone. Cardiology following IV Cardizem drip continuing-considering cardioversion -Acute pulmonary edema, probably contributed by uncontrolled A-fib.: Better Received IV Lasix. -Acute postprocedure blood loss anemia expected from surgery Ferrous sulfate -CAD with stent in 2013 Eliquis. Toprol-XL -Essential hypertension Valsartan 80 mg nightly -Hyperlipidemia Lipitor 20 mg a day -Obesity BMI 36.2 Weight loss measures On Cardizem drip 10 mg an hour. Planning for cardioversion tomorrow. Increase activity. Discussed with patient . Thank you Dr. Braden Past Medical History Past Medical History: Atrial Fibrillation, Coronary Artery Disease (CAD), Chest Pain / Angina, GERD/Reflux, Myocardial Infarction ([place]), Mitral Valve Prolapse (MVP), Osteoarthritis (OA), Syncope Additional Past Medical History / Comment(s): [place] in 2013 with cardiac arrest/V FIB, MIGRAINE HEADACHE, TORN RETINA RT SIDE Last Myocardial Infarction Date:: 2012 History of Any Multi-Drug Resistant Organisms: None Reported Past Surgical History: Appendectomy, Cardiac Ablation, Heart Catheterization With Stent, Orthopedic Surgery, Uterine Ablation Additional Past Surgical History / Comment(s): D&C, [facility], RT KNEE SCOPE, RT RETINA REPAIR Past Anesthesia/Blood Transfusion Reactions: No Reported Reaction, Motion Sickness Date of Last Stent Placement:: 2012 Past Psychological History: No Psychological Hx Reported Additional Psychological History / Comment(s): . Smoking Status: Never smoker Past Alcohol Use History: None Reported Past Drug Use History: None Reported
[2024-06-12] MEDS: LACTULOSE 20 GM/30 ML CUP PO ONE (15:38)
[2024-06-13] MEDS ORDERED: MIDAZOLAM 2 MG/2 ML VIAL IV PRN (07:31)
[2024-06-13] MEDS ORDERED: fentaNYL (PF) 50 MCG/ML 5 ML AMP IVP PRN (07:31)
[2024-06-13] MEDS ORDERED: BENZOCAINE SPRAY 1 CAN TOPICAL PRN (07:31)
--- NOTE | 2024-06-13 10:13 | P.PN ---
Progress Note - Text Progress Note Date: 06/13/24 Postoperative day #5 Patient is seen and examined today at bedside. She is feeling comfortable and moving better. She has been able to walk in the hallways. She is tolerating her regular diet voiding freely and has had a bowel movement. The patient has some pain around the surgical site as expected. Pain is being controlled with medication. Physical Exam Afebrile , currently her pulse is in the 90s on the Cardizem drip. She is saturating in the low 90s with 2 L nasal cannula Abdomen is soft nontender. Chest has good excursion deep and space expiration The incision site is clean dry and intact. No erythema there is no purulence. Extremities have not had neurologic change from prior to surgery. She has sustained dorsiflexion plantarflexion EHL intact Calves and thighs were soft nontender without evidence of DVT. Assessment/Plan Atrial fibrillation with rapid ventricular response -continue rate control with IV Cardizem. The patient is slated to have cardiac evaluation with procedure. Apparently she has to wait until tomorrow for further procedure due to availability in the procedure room. She will continue her management as per cardiology. She continues to remain in the hospital due to her cardiology and oxygen saturation issues that is actively being worked up and treated appropriately. Postoperative day #5 status post minimally invasive decompression fusion for her spondylolisthesis with stenosis -Patient is progressing with her pain and mobility from the surgery adequately. She is only requiring oral medication and she is ambulating better with better transitions and transfers. We will continue to increase the patient's mobilization with therapy. We will continue pain control with oral medications. When the patient is stable from a medicine and cardiac standpoint for discharge home it is okay from Ortho for her to be discharged home. We'll continue to follow patient closely.
--- NOTE | 2024-06-13 15:46 | P.PN ---
Subjective Progress Note Date: 06/13/24 he patient is a pleasant 64-year-old female patient with a past medical history significant for paroxysmal atrial fibrillation as well as hypertension and dyslipidemia with history of atrial fibrillation ablation in the past was admitted to the hospital and underwent back surgery that was complicated by A- fib with RVR and controlled on the current dose of amiodarone as well as beta- lon. The most recent echo showed preserved LV systolic function June 11, 2024 The patient was seen and evaluated this morning. She is in atrial fibrillation with RVR with an average heart rate around 120 bpm and she is symptomatic with that. I am considering starting the patient on Cardizem IV and continue the rest of the current medical regimen including amiodarone orally. The patient need to be transferred out of 4 S. Examination is remarkable for irregular rhythm with soft systolic murmur and clear breathing sounds bilaterally and no edema was noted June 12, 2024 The patient was seen and evaluated this morning. She remains in atrial fibrillation/flutter with a better controlled heart rate on the current dose of Cardizem IV she is on. Beside that she is on beta-lon. Also she is on oral anticoagulation but if she remains in the heart rhythm later on today I would consider doing a CINDY and cardioversion on her tomorrow. The examination is remarkable for irregular rhythm with a soft systolic murmur and clear breathing sounds bilaterally and no edema was noted. 06/13 Patient is seen and examined. Patient is currently in atrial fibrillation with controlled rate. She was tentatively scheduled this morning for CINDY and cardioversion with Dr. Bolaños but due to scheduling difficulties, this is being delayed until tomorrow. Blood pressure 122/96, heart rate 96, pulse ox 91% on room air. Patient has been maintained on IV Cardizem at 5 mg/h. The examination is remarkable for irregular rhythm with a soft systolic murmur and clear breathing sounds bilaterally and no edema was noted. Assessment Atrial fibrillation with uncontrolled heart rate Status post back surgery Multiple comorbid conditions Plan Continue the current medical regimen including the current dose of Cardizem IV Continue patient on the following cardiac medications: Amiodarone 200 mg daily, Eliquis 5 mg twice daily, metoprolol tartrate 50 mg twice daily Continue atorvastatin 20 mg daily Reschedule patient for CINDY and cardioversion on Thursday with Dr. Bolaños. Nurse practitioner note has been reviewed, I agree with documented findings and plan of care. Patient was seen and examined. Objective - Vital Signs Vital signs: Vital Signs Temp 96.9 F L 06/13/24 04:41 Pulse 96 06/13/24 07:57 Resp 16 06/13/24 07:57 BP 122/96 06/13/24 07:57 Pulse Ox 91 L 06/13/24 07:57 FiO2 Intake & Output 06/12/24 06/13/24 06/13/24 18:59 06:59 18:59 Intake Total 421.333 231.333 Balance 421.333 231.333 Weight 98.8 kg Intake: IV 120 Diltiazem 125 mg In 120 Sodium Chloride 0.9% 100 ml @ 10 MG/HR 10 mls/hr IV .[id number] [facility] Rx#: [id number] Intake, IV Titration 61.333 111.333 Amount Diltiazem 125 mg In 61.333 111.333 Sodium Chloride 0.9% 100 ml @ 10 MG/HR 10 mls/hr IV .[id number] [facility] Rx#: [id number] Oral 360 Other: Voiding Method Bedside Commode # Voids 2 2 1 - Labs CBC & Chem 7: 06/09/24 03:43 06/12/24 06:49
--- NOTE | 2024-06-13 16:43 | P.PN ---
Progress Note - Text Progress Note Date: 06/13/24 - Chief Complaint Lumbar surgery - History of Present Illness Very pleasant 64-year-old patient who follows with Dr. Leigh. Chronic medical conditions include hypertension, hyperlipidemia, GERD, CAD with stent around 2012, atrial fibrillation. Patient takes Eliquis for the latter. And amiodarone. Patient been having lower back pain for several years. Much worse in the last 1 year. Specially with walking and much much worse and static standing. Pain did not radiate down the leg. No interference with bowel or urine. Patient is undergone lumbar surgery. EBL 250 cc. Postprocedure patient lying in bed. No drain present. Pain around 5/10. No nausea vomiting. Tired. at the bedside. June 09: Patient did use a rolling walker and walked 6 feet with physical therapy. Pain is present. Decreased appetite. A bit tired. at the bedside. Patient has been in A-fib heart rate around 120s. Getting Toprol-XL 50. Cardiology consulted. Extra dose of Toprol-XL 25 mg given by them. Patient had ablation by Dr. Benedict Chandra earlier this year. June 10: Saw the patient this morning. Pain is reasonable. Decreased appetite. Pulse ox is running borderline. Told the patient to sit up. Or even edge of the bed. Use incentive spirometry. Chest x-ray showed pulm edema. Stop IV fluids. Gave 1 dose of IV Lasix 40 mg. Did communicate with the nurse to see if Dr. Maria will the patient Dr. Benedict Chandra to see the patient who did recent ablation. June 11: Patient A-fib remained uncontrolled. Moved by cardiology to the ICU. Heart rate remains in the 120s. Started on IV Cardizem drip. Breathing is better. at the bedside. Will give another dose of Lasix 20 mg IV to cut back on the preload. June 12: Patient remains on IV Cardizem drip at 10 mg an hour. A-fib controlled. 70s. Patient was given extra dose of Lasix yesterday after which breathing much improved. Off oxygen. Seen by cardiology. Planning for possible cardioversion tomorrow. Discussed with patient . Increase activity inside the room. June 13: Patient remains in atrial fibrillation with heart rate 100. Because of scheduling issues CINDY and cardioversion with Dr. Bolaños has been postponed till tomorrow. Breathing is better. Remains on IV Cardizem at 5 mg an hour. Pain controlled. Discussed with patient at the bedside. Active Medications Acetaminophen (Acetaminophen Tab 325 Mg Tab) 650 mg PO Q6HR [facility] Stop: 07/08/24 11:59 Last Admin: 06/13/24 13:40 Dose: Not Given Hydrocodone Bitart/Acetaminophen (Hydrocodone/Apap 5-325mg 1 Each Tab) 1 each PO Q4HR PRN PRN Reason: Pain Stop: 07/08/24 10:55 Last Admin: 06/13/24 15:34 Dose: 1 each Amiodarone HCl (Amiodarone 200 Mg Tab) 200 mg PO DAILY [facility] Stop: 07/09/24 08:59 Last Admin: 06/13/24 08:08 Dose: 200 mg Apixaban (Apixaban 5 Mg Tab) 5 mg PO BID [facility]; Protocol Stop: 07/09/24 08:59 Last Admin: 06/13/24 08:08 Dose: 5 mg Atorvastatin Calcium (Atorvastatin 20 Mg Tab) 20 mg PO DAILY [facility] Stop: 07/09/24 08:59 Last Admin: 06/13/24 08:08 Dose: 20 mg Benzocaine (Benzocaine [place] 1 Can) 1 spray TOPICAL TID PRN PRN Reason: Skin Irritation Stop: 06/14/24 07:30 Benzocaine/Menthol (Benzocaine/Menthol Lozeng 1 Each Lozenge) 1 each MUCOUS MEM Q4HR PRN PRN Reason: Sore Throat Stop: 07/08/24 10:55 Fentanyl Citrate (Fentanyl (Pf) 50 Mcg/Ml 5 Ml Amp) 50 mcg IVP ONCE PRN PRN Reason: Pre-Op Stop: 06/14/24 01:31 Ferrous Sulfate (Ferrous Sulfate 325 Mg Tab) 325 mg PO W/LUNCH [facility] Last Admin: 06/13/24 13:30 Dose: Not Given Lactated Ringer's (Lactated Ringers) 1,000 mls @ 20 mls/hr IV .Q24H [facility] Stop: 07/08/24 05:57 Last Admin: 06/13/24 06:22 Dose: Not Given Diltiazem HCl 125 mg/ Sodium (Chloride) 125 mls @ 10 mls/hr IV .[id number] [facility] Last Admin: 06/13/24 06:58 Dose: 5 mg/hr, 5 mls/hr Lidocaine HCl (Lidocaine 1% (10mg/Ml) For Iv Start) 0.1 ml INTRADERMA PER PROTOCOL PRN PRN Reason: IV Start Stop: 07/08/24 05:57 Metoprolol Succinate (Metoprolol Succinate (Er) 50 Mg Tab.Er.24h) 50 mg PO BID [facility] Stop: 07/08/24 20:59 Last Admin: 06/13/24 08:08 Dose: 50 mg Midazolam HCl (Midazolam 2 Mg/2 Ml Vial) 1 mg IV ONCE PRN PRN Reason: Pre-Op Stop: 06/14/24 01:31 Morphine Sulfate (Morphine Sulfate 2 Mg/Ml Syringe) 2 mg IVP Q4HR PRN PRN Reason: Pain/Discomfort Stop: 07/08/24 10:57 Last Admin: 06/08/24 16:57 Dose: 2 mg Ondansetron HCl (Ondansetron 4 Mg/2 Ml Vial) 4 mg IVP Q8HR PRN PRN Reason: Nausea And Vomiting Stop: 07/08/24 10:59 Last Admin: 06/11/24 08:44 Dose: 4 mg Senna/Docusate Sodium (Sennosides-Docusate Sodium 1 Each Tab) 1 each PO DAILY [facility] Stop: 07/09/24 08:59 Last Admin: 06/13/24 08:08 Dose: 1 each Tramadol HCl (Tramadol 50 Mg Tab) 50 mg PO Q6HR PRN PRN Reason: Pain Scale 4 - 6 Stop: 07/08/24 10:59 Physical examination: VITAL SIGNS: 98.2, 76, 18, 149% 6, 94% on 3 L GENERAL: Laying in bed, not in distress EYES: Pupils equal. Conjunctiva tarsha l. HEENT: External appearance of nose and ears normal, oral cavity grossly normal. NECK: JVD not raised; masses not palpable. HEART: Irregular heart sounds r, no edema. LUNGS: Respiratory rate increased, proved air entry ABDOMEN: Soft, nontender, liver spleen not palpable, no masses palpable. PSYCH: Alert and oriented x3; mood and affect tarsha l. MUSCULOSKELETAL:No Clubbing/cyanosis;muscles-grossly intact. Dressing over the surgical incision INVESTIGATIONS, reviewed in the clinical context: June 12: Potassium 3.8 creatinine 0.53 June 11: Sodium 133 potassium 3.3 creatinine 0.57 Chest x-ray-pulm edema June 09: White count 13.9 hemoglobin 11.6 platelets 176 potassium 4.1 creatinine 0.9 May 17, 2024: White count 9.4 hemoglobin 13.7 platelets 236 sodium 144 potassium 4.1 creatinine 1.0 Assessment plan: -Laminectomy and decompression L4-L5, discectomy etc. for make spondylolisthesis L4-L5, facet arthrosis L4-L5, lower extremity radiculopathy, low back pain, foraminal stenosis L4-L5. -Paroxysmal atrial fibrillation, currently in atrial fibrillation rate around 100: Controlled About 3 months ago patient had intervention by Dr. Seferino Chandra. Telemetry. Toprol-XL 50 mg twice daily eliquis. Amiodarone. Cardiology following IV Cardizem drip continuing-pending CINDY and cardioversion rescheduled for tomorrow -Acute pulmonary edema, probably contributed by uncontrolled A-fib.: Better Received IV Lasix. -Acute postprocedure blood loss anemia expected from surgery Ferrous sulfate -CAD with stent in 2012 Eliquis. Toprol-XL -Essential hypertension Valsartan 80 mg nightly -Hyperlipidemia Lipitor 20 mg a day -Obesity BMI 36.2 Weight loss measures On Cardizem drip 5 mg an hour. Plan for CINDY cardioversion rescheduled for tomorrow Thank you Dr. Braden Past Medical History Past Medical History: Atrial Fibrillation, Coronary Artery Disease (CAD), Chest Pain / Angina, GERD/Reflux, Myocardial Infarction ([place]), Mitral Valve Prolapse (MVP), Osteoarthritis (OA), Syncope Additional Past Medical History / Comment(s): [place] in 2012 with cardiac arrest/V FIB, MIGRAINE HEADACHE, TORN RETINA RT SIDE Last Myocardial Infarction Date:: 2012 History of Any Multi-Drug Resistant Organisms: None Reported Past Surgical History: Appendectomy, Cardiac Ablation, Heart Catheterization With Stent, Orthopedic Surgery, Uterine Ablation Additional Past Surgical History / Comment(s): D&C, [facility], RT KNEE SCOPE, RT RETINA REPAIR Past Anesthesia/Blood Transfusion Reactions: No Reported Reaction, Motion Sickness Date of Last Stent Placement:: 2012 Past Psychological History: No Psychological Hx Reported Additional Psychological History / Comment(s): . Smoking Status: Never smoker Past Alcohol Use History: None Reported Past Drug Use History: None Reported
[2024-06-14] MEDS ORDERED: LIDOCAINE 1% INJ 10MG/ML (20 ML MDV) ONE (12:58)
[2024-06-14] MEDS ORDERED: fentaNYL (PF) 50 MCG/ML 2 ML AMP ONE (12:58)
[2024-06-14] MEDS ORDERED: MIDAZOLAM 2 MG/2 ML VIAL ONE (12:58)
[2024-06-14] MEDS ORDERED: PROPOFOL 10 MG/ML 20 ML VIAL IV ONE (12:58)
[2024-06-14] MEDS: SODIUM CHLORIDE 0.9% 1,000 ML IV ONE (13:26)
--- NOTE | 2024-06-14 13:30 | P.PCN ---
Date of Procedure: 06/14/24 Description of Procedure: Indication: Atrial fibrillation Procedure Description: After explaining the procedure to the patient, it's risk and complications, blood pressure, heart rate and O2 saturation were monitored. The throat was sprayed with Cetacaine. Patient received sedation per anesthesia department. The probe was introduced into the esophagus without difficulty. Images were obtained. Following that, the probe was removed. There was no immediate complication. Findings: Left atrial size is mildly dilated, left atrial appendage is normal. Overall low ventricular systolic function is mildly impaired with an ejection fraction of 45 to 50% with global hypokinesis. The aortic valve, mitral valve and tricuspid valve appears to be normal. No pericardial effusion was noted. Contrast bubble study revealed no shunting across the interatrial septum. Descending thoracic aorta appears to be normal Doppler: Pulse wave and color Doppler were obtained, and revealed moderate mitral with mild tricuspid regurgitation. There was no shunting across the interatrial septum. Conclusion: 1. Dilated left atrium with normal appearance of the left atrial appendage 2. Mild global hypokinesis of the left ventricle 3. Moderate mitral with mild tricuspid regurgitation 4. No shunting across the interatrial septum 5. No pericardial effusion Cardioversion: After obtaining CINDY and sedated state per anesthesia department a synchronized biphasic cardioversion using 150 J was performed with worship of sinus mechanism, there was no immediate complications.
--- NOTE | 2024-06-14 14:03 | P.PN ---
Progress Note - Text Progress Note Date: 06/14/24 Postoperative day #6 Patient is seen and examined today in recovery room immediately following her cardioversion. She is groggy her vital signs are stable her pulse is in the low 90s. She denies any new complaints. Physical Exam Afebrile with stable vital signs. Her pulse is in the low 90s. Abdomen is soft nontender. The incision site is clean dry and intact at her back. No erythema there is no purulence. Extremities have not had neurologic change from prior to surgery. Calves and thighs were soft nontender without evidence of DVT. Assessment/Plan Postoperative day 0 status post CINDY with cardioversion per interventional cardiology now in sinus rhythm in recovery room postoperative day #6 status post minimally invasive decompression fusion L4-5 for spondylolisthesis with stenosis Patient is progressing from an orthopedic standpoint from the surgery. She is now walking better in the halls and transferring more easily on her own When the patient is stable from cardiology it will be okay for her to be discharged to home possibly tomorrow We will continue to increase the patient's mobilization with therapy when able after her cardioversion. We will continue pain control with oral or IV medications. We'll continue to follow patient closely.
--- NOTE | 2024-06-14 14:49 | P.PN ---
Progress Note - Text Progress Note Date: 06/14/24 - Chief Complaint Lumbar surgery - History of Present Illness Very pleasant 64-year-old patient who follows with Dr. Leigh. Chronic medical conditions include hypertension, hyperlipidemia, GERD, CAD with stent around 2012, atrial fibrillation. Patient takes Eliquis for the latter. And amiodarone. Patient been having lower back pain for several years. Much worse in the last 1 year. Specially with walking and much much worse and static standing. Pain did not radiate down the leg. No interference with bowel or urine. Patient is undergone lumbar surgery. EBL 250 cc. Postprocedure patient lying in bed. No drain present. Pain around 5/10. No nausea vomiting. Tired. at the bedside. June 09: Patient did use a rolling walker and walked 6 feet with physical therapy. Pain is present. Decreased appetite. A bit tired. at the bedside. Patient has been in A-fib heart rate around 120s. Getting Toprol-XL 50. Cardiology consulted. Extra dose of Toprol-XL 25 mg given by them. Patient had ablation by Dr. Benedict Chandra earlier this year. June 10: Saw the patient this morning. Pain is reasonable. Decreased appetite. Pulse ox is running borderline. Told the patient to sit up. Or even edge of the bed. Use incentive spirometry. Chest x-ray showed pulm edema. Stop IV fluids. Gave 1 dose of IV Lasix 40 mg. Did communicate with the nurse to see if Dr. Maria will the patient Dr. Benedict Chandra to see the patient who did recent ablation. June 11: Patient A-fib remained uncontrolled. Moved by cardiology to the ICU. Heart rate remains in the 120s. Started on IV Cardizem drip. Breathing is better. at the bedside. Will give another dose of Lasix 20 mg IV to cut back on the preload. June 12: Patient remains on IV Cardizem drip at 10 mg an hour. A-fib controlled. 70s. Patient was given extra dose of Lasix yesterday after which breathing much improved. Off oxygen. Seen by cardiology. Planning for possible cardioversion tomorrow. Discussed with patient . Increase activity inside the room. June 13: Patient remains in atrial fibrillation with heart rate 100. Because of scheduling issues CINDY and cardioversion with Dr. Bolaños has been postponed till tomorrow. Breathing is better. Remains on IV Cardizem at 5 mg an hour. Pain controlled. Discussed with patient at the bedside. June 14: Saw the patient this morning. Remains in A-fib rate around 100. This afternoon patient reviewed CINDY Aura successful cardioversion. Otherwise no new issues. Active Medications Acetaminophen (Acetaminophen Tab 325 Mg Tab) 650 mg PO Q6HR MIKE Stop: 07/08/24 11:59 Last Admin: 06/14/24 08:06 Dose: 650 mg Hydrocodone Bitart/Acetaminophen (Hydrocodone/Apap 5-325mg 1 Each Tab) 1 each PO Q4HR PRN PRN Reason: Pain Stop: 07/08/24 10:55 Last Admin: 06/13/24 15:34 Dose: 1 each Amiodarone HCl (Amiodarone 200 Mg Tab) 200 mg PO DAILY [facility] Stop: 07/09/24 08:59 Last Admin: 06/14/24 08:17 Dose: 200 mg Apixaban (Apixaban 5 Mg Tab) 5 mg PO BID [facility]; Protocol Stop: 07/09/24 08:59 Last Admin: 06/14/24 08:17 Dose: 5 mg Atorvastatin Calcium (Atorvastatin 20 Mg Tab) 20 mg PO DAILY [facility] Stop: 07/09/24 08:59 Last Admin: 06/14/24 08:17 Dose: 20 mg Benzocaine/Menthol (Benzocaine/Menthol Lozeng 1 Each Lozenge) 1 each MUCOUS MEM Q4HR PRN PRN Reason: Sore Throat Stop: 07/08/24 10:55 Ferrous Sulfate (Ferrous Sulfate 325 Mg Tab) 325 mg PO W/LUNCH [facility] Last Admin: 06/13/24 13:30 Dose: Not Given Lactated Ringer's (Lactated Ringers) 1,000 mls @ 20 mls/hr IV .Q24H [facility] Stop: 07/08/24 05:57 Last Admin: 06/13/24 06:22 Dose: Not Given Sodium Chloride (Saline 0.9%) 1,000 mls @ 20 mls/hr IV .Q24H [facility] Lidocaine HCl (Lidocaine 1% (10mg/Ml) For Iv Start) 0.1 ml INTRADERMA PER PROTOCOL PRN PRN Reason: IV Start Stop: 07/08/24 05:57 Metoprolol Succinate (Metoprolol Succinate (Er) 50 Mg Tab.Er.24h) 50 mg PO BID MIKE Stop: 07/08/24 20:59 Last Admin: 06/14/24 08:17 Dose: 50 mg Morphine Sulfate (Morphine Sulfate 2 Mg/Ml Syringe) 2 mg IVP Q4HR PRN PRN Reason: Pain/Discomfort Stop: 07/08/24 10:57 Last Admin: 06/08/24 16:57 Dose: 2 mg Ondansetron HCl (Ondansetron 4 Mg/2 Ml Vial) 4 mg IVP Q8HR PRN PRN Reason: Nausea And Vomiting Stop: 07/08/24 10:59 Last Admin: 06/11/24 08:44 Dose: 4 mg Senna/Docusate Sodium (Sennosides-Docusate Sodium 1 Each Tab) 1 each PO DAILY MIKE Stop: 07/09/24 08:59 Last Admin: 06/14/24 08:17 Dose: 1 each Tramadol HCl (Tramadol 50 Mg Tab) 50 mg PO Q6HR PRN PRN Reason: Pain Scale 4 - 6 Stop: 07/08/24 10:59 Physical examination: VITAL SIGNS: 105, 16, 09/02/1982, 93% on 2 L GENERAL: Laying in bed, comfortable EYES: Pupils equal. Conjunctiva tarsha l. HEENT: External appearance of nose and ears normal, oral cavity grossly normal. NECK: JVD not raised; masses not palpable. HEART: Irregular heart sounds r, no edema. LUNGS: Respiratory rate increased, proved air entry ABDOMEN: Soft, nontender, liver spleen not palpable, no masses palpable. PSYCH: Alert and oriented x3; mood and affect tarsha l. MUSCULOSKELETAL:No Clubbing/cyanosis;muscles-grossly intact. Dressing over the surgical incision INVESTIGATIONS, reviewed in the clinical context: June 12: Potassium 3.8 creatinine 0.53 June 11: Sodium 133 potassium 3.3 creatinine 0.57 Chest x-ray-pulm edema June 09: White count 13.9 hemoglobin 11.6 platelets 176 potassium 4.1 creatinine 0.9 May 17, 2024: White count 9.4 hemoglobin 13.7 platelets 236 sodium 144 potassium 4.1 creatinine 1.0 Assessment plan: -Laminectomy and decompression L4-L5, discectomy etc. for make spondylolisthesis L4-L5, facet arthrosis L4-L5, lower extremity radiculopathy, low back pain, foraminal stenosis L4-L5. -Paroxysmal atrial fibrillation, currently in atrial fibrillation rate around 100: Controlled About 3 months ago patient had intervention by Dr. Seferino Chandra. Telemetry. Toprol-XL 50 mg twice daily eliquis. Amiodarone. Cardiology following IV Cardizem drip continuing- CINDY followed by successful cardioversion done today. -Acute pulmonary edema, probably contributed by uncontrolled A-fib.: Better Received IV Lasix. -Acute postprocedure blood loss anemia expected from surgery Ferrous sulfate -CAD with stent in 2012 Eliquis. Toprol-XL -Essential hypertension Valsartan 80 mg nightly -Hyperlipidemia Lipitor 20 mg a day -Obesity BMI 36.2 Weight loss measures This morning was on Cardizem drip 10 mg an hour. Successful cardioversion. Will be discharged tomorrow Thank you Dr. Braden Past Medical History Past Medical History: Atrial Fibrillation, Coronary Artery Disease (CAD), Chest Pain / Angina, GERD/Reflux, Myocardial Infarction ([place]), Mitral Valve Prolapse (MVP), Osteoarthritis (OA), Syncope Additional Past Medical History / Comment(s): [place] in 2013 with cardiac arrest/V FIB, MIGRAINE HEADACHE, TORN RETINA RT SIDE Last Myocardial Infarction Date:: 2012 History of Any Multi-Drug Resistant Organisms: None Reported Past Surgical History: Appendectomy, Cardiac Ablation, Heart Catheterization With Stent, Orthopedic Surgery, Uterine Ablation Additional Past Surgical History / Comment(s): D&C, MARTÍN CTR, RT KNEE SCOPE, RT RETINA REPAIR Past Anesthesia/Blood Transfusion Reactions: No Reported Reaction, Motion Sickness Date of Last Stent Placement:: 2012 Past Psychological History: No Psychological Hx Reported Additional Psychological History / Comment(s): . Smoking Status: Never smoker Past Alcohol Use History: None Reported Past Drug Use History: None Reported
[2024-06-14 15:48] LABS: African American GFR (CKD) >90 (>60 ml/min/1.73 sqM); Anion Gap 5 mmol/L; Blood Urea Nitrogen 7 mg/dL (7-17); Calcium 8.2 mg/dL (8.4-10.2); Carbon Dioxide 26 mmol/L (22-30); Chloride 106 mmol/L (98-107); Glucose 87 mg/dL (74-99); Non-African American GFR(CKD) >90 (>60 ml/min/1.73 sqM); Potassium 3.5 mmol/L (3.5-5.1); Sodium 137 mmol/L (137-145)
[2024-06-14] MEDS: SODIUM CHLORIDE 0.9% 1,000 ML IV SCH (20:15)
[2024-06-15 07:58] VITALS: RESP 16
[2024-06-15 10:53] VITALS: BP 101/62; PULSE 83; TEMP 97.9
--- NOTE | 2024-06-15 11:58 | P.DS ---
Providers Date of admission: 06/09/24 13:06 Expected date of discharge: 06/15/24 Attending physician: Ryan Braden Consults: 06/08/24 11:00 Consult Physician Routine Consulting Provider: Speedy Rogers Consult Reason/Comments: Medical management Do you want consulting provider notified?: Yes 06/09/24 10:23 Consult Physician Routine Consulting Provider: Fernando Maria Consult Reason/Comments: uncontrolled AF Do you want consulting provider notified?: Yes Primary care physician: Woo Olguin - Discharge Diagnosis(es) (1) Lumbar facet arthropathy Current Visit: Yes Status: Acute (2) Radiculopathy with lower extremity symptoms Current Visit: Yes Status: Acute (3) Foraminal stenosis of lumbar region Current Visit: Yes Status: Acute (4) Atrial fibrillation status post cardioversion Current Visit: Yes Status: Acute (5) Hypertension Current Visit: Yes Status: Acute (6) Hyperlipidemia Current Visit: Yes Status: Acute (7) Coronary artery disease Current Visit: Yes Status: Acute (8) History of heart artery stent Current Visit: Yes Status: Acute (9) Spondylolisthesis at L4-L5 level Current Visit: Yes Status: Acute Hospital Course: This is a pleasant 64-year-old female who presented with L4-5 dynamic spondylolisthesis, Lumbar facet arthrosis, Lower extremity radiculopathy, L4-5 foraminal stenosis and Low back pain who failed outpatient conservative therapy. She was admitted for an L4-5 minimally invasive posterior lateral decompression and fusion with transforaminal lumbar interbody fusion. The patient tolerated the procedure well and was initially progressing slowly postoperatively. She has significantly improved over the past week. She has been ambulating better. She currently denies any significant low back pain. She denies any lower extremity weakness or radiculopathy bilaterally currently. She is ready for discharge home today. Condition on day of discharge stable. Patient will be discharged home. Patient was cleared preoperatively for surgery by Dr. Olguin. Patient currently denies any nausea, vomiting, fever, or chills. Patient is eating and voiding freely without difficulty. Surgical dressings have been removed. Patient may shower without a dressing intact. Patient should refrain from driving until at least after their first follow-up appointment in the office. Patient should avoid excessive bending, lifting, and twisting; no lifting greater than 10 pounds. During her admission patient did experience atrial fibrillation. She was seen and examined by cardiology. She has undergone cardioversion. She continues to be seen by cardiology. Cardiology has cleared her for discharge today. Medicine's note from yesterday states they were planning for discharge today as well. We did discuss patient must be cleared by medicine and cardiology prior to discharge home today. MAPS has been reviewed today, 06/15/2024, with an Overall Overdose Risk Score of 150. An "Opiod Start Talking" Form has been signed and placed in the patient's chart. A prescription has been written for hydrocodone, 5 mg / 325 mg, 1 tab, every 4 hours, as needed for acute pain, dispense #42. Prescriptions were also given for cyclobenzaprine 10 mg, 1 tab, 3 times daily, as needed for muscle spasm, dispense #60 and Senokot-S, 1 tab, twice daily, as needed for constipation, dispense #60. Prescriptions are sent to the [facility] pharmacy located within [facility] per request of the patient Patient's other medical diagnoses include postoperative atrial fibrillation status post cardioversion, acute pulmonary edema, acute postoperative blood loss anemia, hypertension, hyperlipidemia, and coronary artery disease with cardiac stent 2013. Physical Exam on day of discharge: Patient is awake, alert, and oriented 3 Vital signs stable Good chest excursion with deep inspiration and expiration Abdomen soft nontender No signs or symptoms of DVT; no calf pain Extensor hallucis longus, plantarflexion, and dorsiflexion positive sustained bilateral lower extremities Surgical incision sites are clean, dry, and intact; no erythema, purulence, or signs of infection Mild bruising over the surgical sites over the right iliac crest Procedures: L4-5 minimally invasive posterior lateral decompression and fusion with t ransforaminal lumbar interbody fusion. Cardioversion ion for atrial fibrillation. Patient Condition at Discharge: Stable Plan - Discharge Summary Discharge Rx Participant: Yes New Discharge Prescriptions: New HYDROcodone/APAP 5-325MG [[place] 5] 1 each PO Q4HR PRN #42 tab PRN Reason: Pain Cyclobenzaprine [Flexeril] 10 mg PO TID PRN #60 tab PRN Reason: Muscle Spasm Sennosides-Docusate Sodium [Senokot-S] 1 tab PO BID PRN #60 tablet PRN Reason: Constipation No Action Atorvastatin [Lipitor] 20 mg PO DAILY Apixaban [Eliquis] 5 mg PO BID Metoprolol Succinate (ER) [Toprol Xl] 50 mg PO HS Amiodarone [Cordarone] 200 mg PO DAILY Valsartan [Diovan] 80 mg PO HS Discharge Medication List Atorvastatin [Lipitor] 20 mg PO DAILY 11/05/14 [History] Apixaban [Eliquis] 5 mg PO BID 06/25/23 [History] Amiodarone [Cordarone] 200 mg PO DAILY 02/16/24 [History] Metoprolol Succinate (ER) [Toprol Xl] 50 mg PO HS 02/16/24 [History] Valsartan [Diovan] 80 mg PO HS 06/06/24 [History] Cyclobenzaprine [Flexeril] 10 mg PO TID PRN #60 tab 06/15/24 [Rx] HYDROcodone/APAP 5-325MG [[place] 5] 1 each PO Q4HR PRN #42 tab 06/15/24 [Rx] Sennosides-Docusate Sodium [Senokot-S] 1 tab PO BID PRN #60 tablet 06/15/24 [Rx] Follow up Appointment(s)/Referral(s): Armando Alvarado, GAUDENCIO [PHYSICIAN PARCEL WRAPPER] - 2 Weeks (Patient may follow-up with Armando Alvarado PA-C or Dr. Chan Braden at [facility] in 2-3 weeks following discharge. ) Patient Instructions/Handouts: Transesophageal Echocardiogram (GEN) Activity/Diet/Wound Care/Special Instructions: 1. Patient may shower with Optifoam dressing intact. 2. Patient may remove Optifoam dressing and shower without a dressing at this point. 3. Patient should refrain from driving until at least after their first follow- up appointment in the office. 4. Patient should avoid excessive bending, twisting, lifting; avoid overhead lifting; no lifting greater than 10 pounds 5. Take medications as prescribed 6. Patient should avoid anti-inflammatory medications over the next 6 weeks postoperatively 7. Do not soak in tub Appropriate post cardiology procedure instructions per cardiology Discharge Disposition: HOME SELF-CARE
[2024-06-15] MEDS: FUROSEMIDE 10 MG/ML 4 ML VIAL IV STA (12:31)
[2024-06-15] MEDS: POTASSIUM CHLORIDE ER 20 MEQ TAB.ER PO STA (12:31)
--- NOTE | 2024-06-15 18:35 | P.PN ---
Progress Note - Text Progress Note Date: 06/15/24 - Chief Complaint Lumbar surgery - History of Present Illness Very pleasant 64-year-old patient who follows with Dr. Leigh. Chronic medical conditions include hypertension, hyperlipidemia, GERD, CAD with stent around 2012, atrial fibrillation. Patient takes Eliquis for the latter. And amiodarone. Patient been having lower back pain for several years. Much worse in the last 1 year. Specially with walking and much much worse and static standing. Pain did not radiate down the leg. No interference with bowel or urine. Patient is undergone lumbar surgery. EBL 250 cc. Postprocedure patient lying in bed. No drain present. Pain around 5/10. No nausea vomiting. Tired. at the bedside. June 09: Patient did use a rolling walker and walked 6 feet with physical therapy. Pain is present. Decreased appetite. A bit tired. at the bedside. Patient has been in A-fib heart rate around 120s. Getting Toprol-XL 50. Cardiology consulted. Extra dose of Toprol-XL 25 mg given by them. Patient had ablation by Dr. Benedict Chandra earlier this year. June 10: Saw the patient this morning. Pain is reasonable. Decreased appetite. Pulse ox is running borderline. Told the patient to sit up. Or even edge of the bed. Use incentive spirometry. Chest x-ray showed pulm edema. Stop IV fluids. Gave 1 dose of IV Lasix 40 mg. Did communicate with the nurse to see if Dr. Maria will the patient Dr. Benedict Chandra to see the patient who did recent ablation. June 11: Patient A-fib remained uncontrolled. Moved by cardiology to the ICU. Heart rate remains in the 120s. Started on IV Cardizem drip. Breathing is better. at the bedside. Will give another dose of Lasix 20 mg IV to cut back on the preload. June 12: Patient remains on IV Cardizem drip at 10 mg an hour. A-fib controlled. 70s. Patient was given extra dose of Lasix yesterday after which breathing much improved. Off oxygen. Seen by cardiology. Planning for possible cardioversion tomorrow. Discussed with patient . Increase activity inside the room. June 13: Patient remains in atrial fibrillation with heart rate 100. Because of scheduling issues CINDY and cardioversion with Dr. Bolaños has been postponed till tomorrow. Breathing is better. Remains on IV Cardizem at 5 mg an hour. Pain controlled. Discussed with patient at the bedside. June 14: Saw the patient this morning. Remains in A-fib rate around 100. This afternoon patient reviewed CINDY Aura successful cardioversion. Otherwise no new issues. June 15: Patient did ambulate. Remains in sinus rhythm. She felt a bit thom rt of breath orthopneic last night. Some edema present. JVD raised. 1 dose of IV Lasix 40 mg with potassium given. Patient to follow-up with Dr. Bolaños. Discussed with patient and the . Physical examination: VITAL SIGNS: 97.9, 83, 16, 101 x 62, 96% room air GENERAL: Rate Rangel in bed EYES: Pupils equal. Conjunctiva tarsha l. HEENT: External appearance of nose and ears normal, oral cavity grossly normal. NECK: JVD raised; masses not palpable. HEART: Regular heart sounds r, edema present. LUNGS: Respiratory rate normal, few right basal crackles ABDOMEN: Soft, nontender, liver spleen not palpable, no masses palpable. PSYCH: Alert and oriented x3; mood and affect tarsha l. MUSCULOSKELETAL:No Clubbing/cyanosis;muscles-grossly intact. Dressing over the surgical incision INVESTIGATIONS, reviewed in the clinical context: June 12: Potassium 3.8 creatinine 0.53 June 11: Sodium 133 potassium 3.3 creatinine 0.57 Chest x-ray-pulm edema June 09: White count 13.9 hemoglobin 11.6 platelets 176 potassium 4.1 creatinine 0.9 May 17, 2024: White count 9.4 hemoglobin 13.7 platelets 236 sodium 144 potassium 4.1 creatinine 1.0 Assessment plan: -Laminectomy and decompression L4-L5, discectomy etc. for make spondylolisthesis L4-L5, facet arthrosis L4-L5, lower extremity radiculopathy, low back pain, foraminal stenosis L4-L5. -Paroxysmal atrial fibrillation, currently in atrial fibrillation rate around 100: Controlled About 3 months ago patient had intervention by Dr. Seferino Chandra. Telemetry. Toprol-XL 50 mg twice daily eliquis. Amiodarone. Cardiology following IV Cardizem drip continuing- CINDY followed by successful cardioversion done today. -Acute pulmonary edema, probably contributed by uncontrolled A-fib.: Present Give 1 dose of IV Lasix 40 mg x 1. -Acute postprocedure blood loss anemia expected from surgery Ferrous sulfate -CAD with stent in 2013 Eliquis. Toprol-XL -Essential hypertension Valsartan 80 mg nightly -Hyperlipidemia Lipitor 20 mg a day -Obesity BMI 36.2 Weight loss measures 1 dose of IV Lasix 40 mg with 40 mEq of potassium. Patient to follow-up with Dr. Bolaños outpatient. Thank you Dr. Braden Past Medical History Past Medical History: Atrial Fibrillation, Coronary Artery Disease (CAD), Chest Pain / Angina, GERD/Reflux, Myocardial Infarction ([place]), Mitral Valve Prolapse (MVP), Osteoarthritis (OA), Syncope Additional Past Medical History / Comment(s): [place] in 2013 with cardiac arrest/V FIB, MIGRAINE HEADACHE, TORN RETINA RT SIDE Last Myocardial Infarction Date:: 2012 History of Any Multi-Drug Resistant Organisms: None Reported Past Surgical History: Appendectomy, Cardiac Ablation, Heart Catheterization With Stent, Orthopedic Surgery, Uterine Ablation Additional Past Surgical History / Comment(s): D&C, MARTÍN CTR, RT KNEE SCOPE, RT RETINA REPAIR Past Anesthesia/Blood Transfusion Reactions: No Reported Reaction, Motion Sickness Date of Last Stent Placement:: 2012 Past Psychological History: No Psychological Hx Reported Additional Psychological History / Comment(s): . Smoking Status: Never smoker Past Alcohol Use History: None Reported Past Drug Use History: None Reported
== END 2024-06-15 14:24 | disposition home or self-care (01) | DRG 402 ==
LOC: OR 05:41 → 4SSUR 10:56 → OR 06-09 13:06 → 4SSUR 06-09 13:06 → 2SICU 06-11 08:26 → 3SCARD 06-11 14:57
PROVIDERS: ADMIT Orthopaedic Surgery Orthopaedic Surgery of the Spine; ATTEND Orthopaedic Surgery Orthopaedic Surgery of the Spine
PROC: 0SG0071 Fusion of Lumbar Vertebral Joint with Autologous Tissue Substitute, Posterior Approach, Posterior Column, Open Approach (ICD-10-PCS; 2024-06-08)
PROC: 01NB0ZZ Release Lumbar Nerve, Open Approach (ICD-10-PCS; 2024-06-08)
PROC: 0ST20ZZ Resection of Lumbar Vertebral Disc, Open Approach (ICD-10-PCS; 2024-06-08)
PROC: 07DS3ZZ Extraction of Vertebral Bone Marrow, Percutaneous Approach (ICD-10-PCS; 2024-06-08)
PROC: 8E0WXBZ Computer Assisted Procedure of Trunk Region (ICD-10-PCS; 2024-06-08)
PROC: 0SG00AJ Fusion of Lumbar Vertebral Joint with Interbody Fusion Device, Posterior Approach, Anterior Column, Open Approach (ICD-10-PCS; principal; 2024-06-08 07:30)
PROC: 5A2204Z Restoration of Cardiac Rhythm, Single (ICD-10-PCS; 2024-06-14)
DX: M47.26 Other spondylosis with radiculopathy, lumbar region (principal); J81.0 Acute pulmonary edema; D62 Acute posthemorrhagic anemia; M43.16 Spondylolisthesis, lumbar region; I48.0 Paroxysmal atrial fibrillation; Z86.74 Personal history of sudden cardiac arrest; I10 Essential (primary) hypertension; E66.9 Obesity, unspecified; M48.061 Spinal stenosis, lumbar region without neurogenic claudication; I25.10 Atherosclerotic heart disease of native coronary artery without angina pectoris; E78.5 Hyperlipidemia, unspecified; I08.1 Rheumatic disorders of both mitral and tricuspid valves; R00.0 Tachycardia, unspecified; Z68.36 Body mass index [BMI] 36.0-36.9, adult; Z95.5 Presence of coronary angioplasty implant and graft; Z86.16 Personal history of COVID-19; I25.2 Old myocardial infarction; Z79.01 Long term (current) use of anticoagulants; Z79.899 Other long term (current) drug therapy; Z86.718 Personal history of other venous thrombosis and embolism
CPT/HCPCS: 71046; 72100; 80048; 85025; 86850; 86870; 86880; 86900; 86901; 86902; 92960; 93312; 93320; 93325; 94760

== ENCOUNTER 2024-08-22 05:38 | Day surgery (SDC) | payer MEDICARE ==
[2024-08-17 16:07] VITALS: BMI 34.2
[2024-08-22] MEDS: SODIUM CHLORIDE 0.9% 1,000 ML IV SCH (06:25)
[2024-08-22] MEDS: IV FLUID CONTINUATION 1,000 ML IV ONE (06:26)
[2024-08-22 06:38] LABS: Basophils % (A) 1 %; Eosinophils # (A) 0.3 k/uL (0-0.7); Eosinophils % (A) 5 %; HCT 42.6 % (34.0-46.0); HGB 13.9 gm/dL (11.4-16.0); Lymphocytes # (A) 2.3 k/uL (1.0-4.8); Lymphocytes % (A) 35 %; MCHC 32.5 g/dL (31.0-37.0); MCV 89.2 fL (80.0-100.0); Monocytes # (A) 0.5 k/uL (0-1.0); Monocytes % (A) 7 %; Neutrophils # (A) 3.3 k/uL (1.3-7.7); Neutrophils % (A) 50 %; Platelet Count 231 k/uL (150-450); RBC 4.77 m/uL (3.80-5.40); RDW 13.7 % (11.5-15.5); WBC 6.6 k/uL (3.8-10.6)
[2024-08-22 06:55] LABS: ALT 43 U/L (4-34); AST 38 U/L (14-36); African American GFR (CKD) 79 (>60 ml/min/1.73 sqM); Albumin 4.2 g/dL (3.5-5.0); Alkaline Phosphatase 88 U/L (38-126); Anion Gap 8 mmol/L; Blood Urea Nitrogen 20 mg/dL (7-17); Calcium 9.3 mg/dL (8.4-10.2); Carbon Dioxide 30 mmol/L (22-30); Chloride 104 mmol/L (98-107); Glucose 92 mg/dL (74-99); Non-African American GFR(CKD) 68 (>60 ml/min/1.73 sqM); Potassium 4.1 mmol/L (3.5-5.1); Sodium 142 mmol/L (137-145); Total Bilirubin 0.4 mg/dL (0.2-1.3); Total Protein 6.2 g/dL (6.3-8.2)
[2024-08-22] MEDS ORDERED: PHENYLEPHRINE-0.9% NACL SYG 1,000 MCG/10 ML SYRINGE ONE (07:21)
[2024-08-22] MEDS ORDERED: PROPOFOL 10 MG/ML 20 ML VIAL IV ONE (07:21)
[2024-08-22] MEDS ORDERED: SUCCINYLCHOLINE CHLORIDE 200 MG/10 ML VIAL IV ONE (07:21)
[2024-08-22] MEDS ORDERED: KETAMINE HCL IN 0.9 % NACL 50 MG/5 ML SYRINGE ONE (07:21)
[2024-08-22] MEDS ORDERED: ePHEDrine 50 MG/ML 1 ML VIAL ONE (07:21)
[2024-08-22] MEDS ORDERED: WATER FOR INJECTION, STERILE 10 ML VIAL IV ONE (07:21)
[2024-08-22] MEDS ORDERED: fentaNYL (PF) 50 MCG/ML 2 ML AMP ONE (07:21)
[2024-08-22] MEDS ORDERED: HEPARIN SODIUM,PORCINE 5,000 UNIT/ML 1 ML VIAL ONE (07:21)
[2024-08-22] MEDS ORDERED: MIDAZOLAM 2 MG/2 ML VIAL ONE (07:21)
[2024-08-22] MEDS ORDERED: HEPARIN SODIUM,PORCINE 10,000 UNIT/ML 1 ML VIAL ONE (07:21)
[2024-08-22] MEDS ORDERED: ONDANSETRON 4 MG/2 ML VIAL ONE (07:21)
[2024-08-22] MEDS ORDERED: LIDOCAINE 1% INJ 10MG/ML (20 ML MDV) ONE (07:21)
[2024-08-22] MEDS: HEPARIN SODIUM (1,000 UNIT/ML) 1,000 UNIT in SODIUM CHLORIDE 0.9% 1,000 ML IRRIGATION ONE (07:33)
[2024-08-22] MEDS: HEPARIN SODIUM,PORCINE (1 ML) 2,500 UNIT in SODIUM CHLORIDE 0.9% 250 ML IRRIGATION ONE (07:33)
[2024-08-22] MEDS: HEPARIN SOD,PORK IN 0.45% NACL 25,000 UNIT in 0.45% NACL 1 250ML.BAG IV ONE (07:33)
[2024-08-22] MEDS: HEPARIN SODIUM,PORCINE 10,000 UNIT in SODIUM CHLORIDE 0.9% 1,000 ML IRRIGATION ONE (07:33)
[2024-08-22] MEDS: LIDOCAINE 1% INJ 10MG/ML (20 ML MDV) SQ ONE (08:09)
[2024-08-22] MEDS: IOPAMIDOL-370 100ML BTL INJ ONE (10:13)
--- NOTE | 2024-08-22 13:22 | P.EPPROC ---
- EP Procedure Note Electrophysiology Procedure Note: PROCEDURE A. fib ablation with PVI, left atrial roof ablation, left atrial ridge ablation Electrical scar noted in the left atrial septum just posterior to the transseptal puncture site. Home visualization followed by linear ablation connecting to the right sided veins resulted in termination of 2 atrial arrhythmias DIAGNOSIS Atrial fibrillation, symptomatic, refractory to therapy RESULT No left atrial appendage mass seen on intracardiac echo. Very large left atrial appendage. Very large left atrium Ablation around the antrum of the pulmonary veins. Previous ostial level ablation was durable Ablation of the left atrial roof and isolation confirmed with voltage mapping Ablation of the left atrial ridge that seem to be the source of atrial fibrillation with mechanical stimulation Large electrical scar in the large septum between the pulmonary veins and the transseptal puncture site This area was homogenized resulting in termination of 1 arrhythmia. Irregular atrial tachycardia was induced once again This 1 was terminated when this electrical scar was connected to the right superior pulmonary vein Second linear ablation was made connecting the electrical scar to the right inferior pulmonary vein anteriorly The large venous segment of LA septum was completely isolated with both entrance and exit block Irregular atrial tachycardia with changing morphologies was induced once again but with an aggressive burst stimulation protocol at 280 ms Electrical cardioversion was performed successfully to sinus rhythm PROCEDURE DETAILS Written informed consent prior to procedure. Patient brought to the EP lab. General anesthesia given. Heparin administered. A city maintained above 300 seconds Both groins prepped and draped per protocol and venous sheaths placed. Esophagus intubated, circa catheter for temperature monitoring an endoscope for possible esophageal deflection. Phrenic nerve monitoring performed. Esophageal temperature monitoring performed. Esophageal deflection performed if circa catheter overlapping with the balloon or circa temperature less than 27.5C Intracardiac echocardiography performed. Pericardium evaluated. Left atrial appendage evaluated. Left atrium evaluated along with pulmonary veins Transseptal catheterization performed under fluoroscopic guidance and intracardiac echo guidance Cryoablation sheath exchanged, balloon catheter along with achieve catheter placed in the left atrium. Pulmonary veins isolated in the following sequence: Left superior pulmonary vein followed by left inferior pulmonary vein, followed by right inferior pulmonary vein and lastly right superior pulmonary vein. Phrenic nerve stimulation along with capture thresholds within the SVC and right superior pulmonary vein to identify the phrenic nerve proximity to the cryo- balloon. Pulmonary veins isolated and confirmed with entrance and exit block. Phrenic nerve integrity confirmed at the end of the procedure Ablation of the left atrial roof performed with sequential lesions from the left superior to the right superior pulmonary veins. Ablation of the electrograms confirmed Voltage mapping performed to confirm complete isolation of all 4 pulmonary veins at an antral level. The intervening [place] between the pulmonary veins had also been successfully ablated. RF ablation, linear performed in the left atrial ridge area after induction of atrial fibrillation from this area. Successful ablation performed along this ridge from the left superior down to the left inferior pulmonary vein Following that atrial fibrillation was induced once again, irregular atrial tachycardia cycle length of about 280 ms Voltage mapping also revealed an area of electrical scar posterior to the transseptal puncture site This area was connected with RF lesions to the right superior pulmonary vein. As soon as this line was complete the tachycardia terminated Burst stimulation from the high right atrium once again induced another irregular atrial tachycardia. Further omission isolation of this electrical scar resulted in termination of this tachycardia Liriat of RF ablation was performed from the inferior aspect of the electrical scar to the right inferior pulmonary vein The intervening segment of the septum was completely isolated and both entrance and exit block were confirmed However with aggressive stimulation from the high right atrium, burst stimulation and atrial tachycardia, irregular with changing morphologies, consistent with atrial fibrillation was induced Electrical cardioversion was performed to sinus rhythm No further ablations were performed beyond what has been described above Electrical cardioversion performed for persistence of atrial fibrillation despite successful ablation. Diagnostic catheters for the high right atrium, His bundle, coronary sinus placed. LA and RA pressures recorded LA pressure: 31/05/17 Diagnostic EP study with coronary sinus pacing and recording Baseline measurements: NE interval 183 ms, QRS 127, QT 328 ms AH 120 ms, HV interval 44 ms AV node Wenckebach block greater than 600 ms Venous sheaths were removed and hemostasis assured with a closure device. Patient extubated and transferred to recovery Increase procedural time A total procedure time was greater than 5 hours on account of very enlarged left atrium with a long roof very long ridge and a very large area of septal tissue Extensive ablation was performed along the roof and the upper LA posterior wall, left atrial ridge and the septal area with 2 linear lesions connecting this area of electrical scar to the right superior and right inferior pulmonary veins as well as homogeization of this electrical scar PROCEDURES PERFORMED Diagnostic EP study CS pacing and recording Left and right transseptal catheterization Catheter the mapping of the tachycardia Intracardiac echocardiography Pulmonary vein isolation with transseptal and comprehensive EPS, [id number] Extended procedure duration Left atrial roof line, +87490 Linear ablation, ridge of left atrium, +45511 Ablation of discrete arrhythmia related to the septal atrial scar, +07787 Electrical cardioversion with a synchronized shock across the chest [id number]
[2024-08-22] MEDS: diphenhydrAMINE 50 MG/ML 1 ML VIAL IVP STA (14:34)
[2024-08-22] MEDS: LACTATED RINGERS 1,000 ML IV SCH (15:27)
[2024-08-22] MEDS: ACETAMINOPHEN IV (For NPO) 1,000 MG in EMPTY BAG 1 BAG IVPB ONE (16:44)
[2024-08-22] MEDS: APIXABAN 5 MG TAB PO SCH (19:59)
[2024-08-23] MEDS: ACETAMINOPHEN TAB 325 MG TAB PO PRN (06:03)
[2024-08-23] MEDS: ONDANSETRON 4 MG/2 ML VIAL IVP STA (07:12)
[2024-08-23] MEDS: VALSARTAN 40 MG TAB PO SCH (08:33)
[2024-08-23] MEDS: ATORVASTATIN 20 MG TAB PO SCH (08:33)
[2024-08-23] MEDS: METOPROLOL SUCCINATE (ER) 100 MG TAB.ER.24H PO SCH (08:33)
[2024-08-23] MEDS: SODIUM CHLORIDE 0.9% 500 ML 500 ML IV ONE (10:44)
[2024-08-23] MEDS: ONDANSETRON 4 MG/2 ML VIAL IVP PRN (11:33)
[2024-08-23] MEDS: KETOROLAC 15 MG/ML 1 ML VIAL IVP STA (11:33)
[2024-08-23] MEDS: FAMOTIDINE 20 MG/2 ML VIAL IV STA (11:33)
[2024-08-23] MEDS: IBUPROFEN 400 MG TAB PO PRN (22:00)
[2024-08-24 05:14] VITALS: RESP 18
[2024-08-24 07:47] VITALS: BP 141/92; PULSE 69; TEMP 97.8
[2024-08-24] MEDS: FAMOTIDINE 20 MG/2 ML VIAL IV SCH (08:09)
[2024-08-24] MEDS: KETOROLAC 15 MG/ML 1 ML VIAL IVP SCH (08:09)
[2024-08-24] MEDS: METOPROLOL SUCCINATE (ER) 50 MG TAB.ER.24H PO SCH (08:10)
--- NOTE | 2024-08-24 08:19 | P.DS ---
Providers Attending physician: Seferino Chandra Primary care physician: [facility] Course: Renetta is doing better today. No nausea no chest pain mild achiness in the chest sore throat is improved On examination her blood pressure is 141/92 134/85 mmHg pulse rate between 7210 beats a minute Today she went into atrial fibrillation and heart rates up to 116 beats a minute with walking in the hallways No murmurs over the precordium Lungs are clear no rhonchi no crackles Impression Persistent atrial fibrillation despite prior successful and durable antral pulmonary vein isolation, 6 months back Significant left atrial and left atrial appendage enlargement Electrical scar noted just posterior to the transseptal area Left atrial roof ablation with complete quiescence Left atrial ridge ablation. (Bursts of A-fib easily induced with mechanical stimulation in this area) Home visualization of the posterior septal electrical scar that was a distinct area away from the pulmonary veins. This resulted in termination of 1 inducible atrial fibrillation Subsequently a linear ablation was performed from this area to the right superior pulmonary vein resulting in termination of her reentrant arrhythmia around this scar Second RF linear ablation was performed connecting it to the right inferior pulmonary veins. The triangular segment of septal tissue between the pulmonary veins and his electrical scar was rendered completely quiescent with confirmed exit block Long procedure Increased BMI, hypertension Plan Assessment of sleep apnea Increase valsartan to 80 mg p.o. daily nightly for hypertension management Increase metoprolol succinate 150 mg in the morning for rate control of atrial fibrillation At this time I would not perform any electrical cardioversion and I would avoid antiarrhythmic drug therapy since she has already failed amiodarone. She has had significant diarrhea with Multaq and she has known coronary artery disease status post stenting many years back. Weight management and weight loss Lifestyle modification Regular exercise 30 minutes daily moderate level Patient Condition at Discharge: Stable Plan - Discharge Summary Discharge Rx Participant: No New Discharge Prescriptions: New Metoprolol Succinate (ER) [Toprol XL] 150 mg PO DAILY #90 tab Valsartan [Diovan] 80 mg PO DAILY #90 tab Discontinued Valsartan [Diovan] 40 mg PO DAILY Amiodarone [Cordarone] 200 mg PO DAILY Metoprolol Succinate (ER) [Toprol XL] 100 mg PO DAILY No Action Atorvastatin [Lipitor] 20 mg PO DAILY Apixaban [Eliquis] 5 mg PO BID Acetaminophen Tab [Tylenol] 650 mg PO Q6HR tab Discharge Medication List Atorvastatin [Lipitor] 20 mg PO DAILY 11/05/14 [History] Apixaban [Eliquis] 5 mg PO BID 06/25/23 [History] Acetaminophen Tab [Tylenol] 650 mg PO Q6HR tab 06/15/24 [Rx] Metoprolol Succinate (ER) [Toprol XL] 150 mg PO DAILY #90 tab 08/24/24 [Rx] Valsartan [Diovan] 80 mg PO DAILY #90 tab 08/24/24 [Rx] Follow up Appointment(s)/Referral(s): Rubén Bolaños MD [STAFF PHYSICIAN] - 08/26/24 4:15 pm (Appointment made at the [facility] ) Activity/Diet/Wound Care/Special Instructions: Post EP study - Ablation instructions 1. Keep access sites dry for 2 days. 2. No heavy lifting or straining for 2 days. 3. Avoid bending the hips repeatedly for 2 days. 4. You may go up and down stairs slowly 5. If you have had an ablation for atrial fibrillation or atrial flutter and are on a blood thinner, do not stop the blood thinner even temporarily for 3 months post ablation Call if the following is noted 1. Bleeding, increasing swelling or pain at the access sites. 2. Increasing chest discomfort, especially upon taking a deep breath. 3. Increasing shortness of breath, at rest or with exertion. 4. Undue cough / phlegm 5. Difficulty or pain while swallowing. 6. Pain or change in color in the extremities. 7. Fever, chills, rigors. 8. Increasing headache or neurologic symptoms. 9. Dizziness, fainting, palpitations For patients who have undergone an A-fib ablation /atrial flutter ablation Strict instruction; do NOT stop anticoagulation (Eliquis/Xarelto/Pradaxa) for the next 2 months temporarily, for any elective, nonurgent surgery. This increases the risk of stroke, post A-fib ablation Stop amiodarone Increase metoprolol succinate to 150 mg p.o. daily in the morning Increase valsartan to 80 mg p.o. daily in the evening Uninterrupted Eliquis Continue statins Discharge Disposition: HOME SELF-CARE
[2024-08-24] MEDS ORDERED: VALSARTAN 80 MG TAB PO SCH (21:00)
== END 2024-08-24 10:32 | disposition home or self-care (01) ==
LOC: CATHEP 05:38 → 6NMEDSUR 12:24 → CATHEP 08-24 10:32
PROVIDERS: ATTEND Internal Medicine Clinical Cardiac Electrophysiology
DX: I48.19 Other persistent atrial fibrillation (principal); G47.30 Sleep apnea, unspecified; I10 Essential (primary) hypertension; I25.10 Atherosclerotic heart disease of native coronary artery without angina pectoris; Z79.01 Long term (current) use of anticoagulants; Z79.899 Other long term (current) drug therapy; Z95.5 Presence of coronary angioplasty implant and graft
CPT/HCPCS: 92960; 93655; 93656; 93657; 86900; 86901; 80053; 84443; 85025; 86850; 86870; 86880; C1894; C1769; C1760 ×3; C1730 ×2; C1731; C1759; C1733; C1766; C1732; J1200; J1644 ×4; J2405; J2003; J3490; J1885; Q9967

== ENCOUNTER 2024-08-31 15:50 | Emergency (ER) | payer MEDICARE ==
[2024-08-31] MEDS ORDERED: RX INFO: IV CONTRAST WAS GIVEN 1 EACH MISC MISCELLANE PRN (16:16)
--- NOTE | 2024-08-31 16:24 | ED ---
Wound/Laceration HPI - General Chief Complaint: Wound/Laceration Stated Complaint: right groin bleeding Time Seen by Provider: 08/31/24 16:21 Source: patient, RN notes reviewed, old records reviewed Mode of arrival: ambulatory Limitations: no limitations - History of Present Illness Initial Comments: 64 old female presented to the ER for evaluation of right lower extremity hematoma. Patient states she underwent a cardiac ablation with Dr. Chandra on 08/22/24. She states for the past 9 days she has been having a slow leak of blood to her right groin. She does take Eliquis as she has a hx of MIs and a.fibrillation. Patient was seen by cardiology today and had ultrasound completed to rule out pseudoaneurysm. Ultrasound findings are concerning of a pseudoaneurysm which patient was sent by for CT of lower extremity. Patient denies any pain, chest pain, shortness of breath, dizziness, lightheadedness or other complaints. - Related Data Home Medications Medication Instructions Recorded Confirmed Atorvastatin [Lipitor] 20 mg PO DAILY 11/05/14 08/17/24 Apixaban [Eliquis] 5 mg PO BID 06/25/23 08/17/24 Previous Rx's Medication Instructions Recorded Acetaminophen Tab [Tylenol] 650 mg PO Q6HR tab 06/15/24 Metoprolol Succinate (ER) [Toprol 150 mg PO DAILY #90 tab 08/24/24 XL] Valsartan [Diovan] 80 mg PO DAILY #90 tab 08/24/24 Allergies Allergy/AdvReac Type Severity Reaction Status Date / Time diltiazem [From Cardizem] AdvReac Vomiting Verified 08/22/24 06:22 dronedarone [From Multaq] AdvReac headache,di Verified 08/22/24 06:22 arrhea hydromorphone HCl AdvReac Vomiting Verified 08/22/24 06:22 [From Dilaudid] isosorbide mononitrate AdvReac HEADACHE Verified 08/22/24 06:22 [From Imdur] lisinopril AdvReac Cough Verified 08/22/24 06:22 Review of Systems ROS Statement: Those systems with pertinent positive or pertinent negative responses have been documented in the HPI. ROS Other: All systems not noted in ROS Statement are negative. Past Medical History Past Medical History: Coronary Artery Disease (CAD), Chest Pain / Angina, Heart Failure, Myocardial Infarction ([place]), Mitral Valve Prolapse (MVP), Osteoarthritis (OA), Syncope Additional Past Medical History / Comment(s): See Dr Chandra's H&P,OH in 2012 with cardiac arrest/V FIB, HEADACHEs w/ vomiting, TORN RETINA RT SIDE,"tricuspid valve moderate deterioration,severe mitral valve deterioration" Last Myocardial Infarction Date:: History of Any Multi-Drug Resistant Organisms: None Reported Past Surgical History: Appendectomy, Cardiac Ablation, Heart Catheterization With Stent, Orthopedic Surgery, Uterine Ablation Additional Past Surgical History / Comment(s): D&C, [facility], RT KNEE SCOPE, RT RETINA REPAIR,vaginal repair after childbirth,cyst removal left wrist,cardioversion,lumbar fusion Past Anesthesia/Blood Transfusion Reactions: No Reported Reaction, Motion Sickness, Postoperative Nausea & Vomiting (PONV) Additional Past Anesthesia/Blood Transfusion Reaction / Comment(s): no complications with prior blood transfusions Date of Last Stent Placement:: 2012 Past Psychological History: No Psychological Hx Reported Smoking Status: Never smoker Past Alcohol Use History: None Reported Past Drug Use History: None Reported - Past Family History Mother Family Medical History: CVA/TIA, Hypertension Additional Family Medical History / Comment(s): Mother is living. She has colilits. Father Family Medical History: Cancer, CVA/TIA, Diabetes Mellitus, Hypertension Additional Family Medical History / Comment(s): He had leukemia- Sister(s) Family Medical History: AFIB Additional Family Medical History / Comment(s): MS General Exam Limitations: no limitations General appearance: alert, in no apparent distress Respiratory exam: Present: normal lung sounds bilaterally. Absent: respiratory distress, wheezes, rales, rhonchi, stridor Cardiovascular Exam: Present: regular rate, normal rhythm, normal heart sounds. Absent: systolic murmur, diastolic murmur, rubs, gallop, clicks Extremities exam: Present: normal inspection, full ROM, normal capillary refill, other (Pinpoint opening to right inner groin. There is a large surrounding contusion. No active bleeding present. There is also small contusions to left thigh. 2+ right DP and TP pulse.). Absent: tenderness, pedal edema, joint swelling, calf tenderness Skin exam: Present: warm, dry, intact, normal color. Absent: rash Course Vital Signs 08/31/24 08/31/24 08/31/24 15:56 16:37 17:50 Temperature 98.8 F 97.9 F Pulse Rate 80 68 69 Respiratory 16 18 Rate Blood Pressure 175/98 138/68 154/96 O2 Sat by Pulse 98 94 L 94 L Oximetry 08/31/24 08/31/24 18:54 18:59 Temperature 97.9 F Pulse Rate 68 68 Respiratory 18 18 Rate Blood Pressure 162/105 162/105 O2 Sat by Pulse 95 94 L Oximetry Medical Decision Making - Medical Decision Making Was pt. sent in by a medical professional or institution (, PA, CUSTOMER ENGINEERING SPECIALIST, urgent care, hospital, or senior care...) When possible be specific @ -Patient sent by for CTA of RLE to examine possible pseudoaneurysm. Did you speak to anyone other than the patient for history (EMS, parent, family, police, friend...)? What history was obtained from this source @ -No Did you review nursing and triage notes (agree or disagree)? Why? @ -I reviewed and agree with nursing and triage notes Were old charts reviewed (o no old charts were reviewed [facility] previous admission, EMS record, old EKG, old radiological studies, urgent care reports/EKG's, senior care records)? Report findings @ -Right groin ultrasound completed on 08-31-2024 with findings suspicious for pseudoaneurysm with attachment near the confluence at the common femoral vein and greater saphenous vein appearing to be clotted/thrombosed. CT recommended. Differential Diagnosis (chest pain, altered mental status, abdominal pain women, abdominal pain men, vaginal bleeding, weakness, fever, dyspnea, syncope, headache, dizziness, GI bleed, back pain, seizure, CVA, palpatations, mental health, musculoskeletal)? @ -Differential Musculoskeletal: Muscular strain, contusion, ligament sprain, fracture, arthritis, septic arthritis, bursitis, cellulitis, muscle spasm, nerve compression, DVT, arterial occlusion, herpes zoster, electrolyte abnormality, tumor.... This is not meant to be in all inclusive list EKG interpreted by me (3pts min.). @ -None done X-rays interpreted by me (1pt min.). @ -None done CT interpreted by me (1pt min.). @ -CTA right lower extremity showing a small focal fluid collection in the right groin with ill-definition from anterior margin of the common femoral vein at the level of the great saphenous junction. Arterial system unremarkable. U/S interpreted by me (1pt. min.). @ -None done What testing was considered but not performed or refused? (CT, X-rays, U/S, labs)? Why? @ -None What meds were considered but not given or refused? Why? @ -None Did you discuss the management of the patient with other professionals (professionals i.e. DrBrent, PA, CUSTOMER ENGINEERING SPECIALIST, lab, RT, psych nurse, social services assistant, media analytics manager, teacher, chief resource officer, catalytic case operator)? Give summary @ -Yes, case was discussed with ad operations associate cardiology, Dr. Renae, who directly spoke with Dr. Bolaños by my attending Dr. Mann. Cardiology stated patient can be discharged with outpatient follow-up. Was smoking cessation discussed for >3mins.? @ -No Was critical care preformed (if so, how long)? @ -No Were there social determinants of health that impacted care today? How? (Homelessness, low income, unemployed, alcoholism, drug addiction, transportation, low edu. Level, literacy, decrease access to med. care, alf, rehab)? @ -No Was there de-escalation of care discussed even if they declined (Discuss DNR or withdrawal of care, Hospice)? DNR status @ -No What co-morbidities impacted this encounter? (DM, HTN, Smoking, COPD, CAD, Cancer, CVA, ARF, Chemo, Hep., AIDS, mental health diagnosis, sleep apnea, morbid obesity)? @ -History of atrial fibrillation on Eliquis with recent cardiac ablation Was patient admitted / discharged? Hospital course, mention meds given and route, prescriptions, significant lab abnormalities, going to OR and other pertinent info. @ -Discharge. 64-year-old female presented to the ER for evaluation of right groin oozing status post cardiac ablation on 08-22-2024. Ultrasound completed earlier today showed concerning of a pseudoaneurysm. Vital signs within acceptable limits. There is a large contusion noted to right inner thigh with pinpoint entrance wound. There is no active bleeding noted on exam. Patient is neurovascularly intact. Laboratory studies obtained showing a stable hemoglobin of 14.0. CTA RLE had a small foci of fluid collection in the right groin with ill-definition from the anterior margin of the common femoral vein at the level of the great saphenous junction. Arterial system unremarkable. Findings di scussed with cardiology, Dr. Renae who reviewed imaging and spoke with Dr. Bolaños. They have cleared patient for discharge. Strict return parameters discussed. Patient discharged in stable condition with follow-up to PCP and cardiology. Patient verbally expressed understanding and agreement with care plan. Case discussed with ED attending, Dr. Mann. Undiagnosed new problem with uncertain prognosis? @ -No Drug Therapy requiring intensive monitoring for toxicity (Heparin, Nitro, Insulin, Cardizem)? @ -No Were any procedures done? @ -No Diagnosis/symptom? @ -Right groin hematoma/ s/p cardiac catheterization Acute, or Chronic, or Acute on Chronic? @ -Acute Uncomplicated (without systemic symptoms) or Complicated (systemic symptoms)? @ -Uncomplicated Side effects of treatment? @ -No Exacerbation, Progression, or Severe Exacerbation? @ -No Poses a threat to life or bodily function? How? (Chest pain, [place], [place], pneumonia, PE, COPD, DKA, ARF, appy, cholecystitis, CVA, Diverticulitis, Homicidal, Suicidal, threat to staff... and all critical care pts) @ -No - Lab Data Result diagrams: 08/31/24 16:29 08/31/24 16:29 Lab Results 08/31/24 08/31/24 Range/Units 16:29 16:29 WBC 8.7 (3.8-10.6) k/uL RBC 4.64 (3.80-5.40) m/uL Hgb 14.0 (11.4-16.0) gm/dL Hct 41.2 (34.0-46.0) % MCV 88.8 (80.0-100.0) fL MCH 30.3 (25.0-35.0) pg MCHC 34.1 (31.0-37.0) g/dL RDW 13.4 (11.5-15.5) % Plt Count 271 (150-450) k/uL MPV 8.7 Neutrophils % 59 % Lymphocytes % 29 % Monocytes % 5 % Eosinophils % 4 % Basophils % 1 % Neutrophils # 5.1 (1.3-7.7) k/uL Lymphocytes # 2.5 (1.0-4.8) k/uL Monocytes # 0.5 (0-1.0) k/uL Eosinophils # 0.3 (0-0.7) k/uL Basophils # 0.1 (0-0.2) k/uL Sodium 139 (137-145) mmol/L Potassium 3.8 (3.5-5.1) mmol/L Chloride 104 (98-107) mmol/L Carbon Dioxide 25 (22-30) mmol/L Anion Gap 10 mmol/L BUN 15 (7-17) mg/dL Creatinine 0.97 (0.52-1.04) mg/dL Est GFR (CKD-EPI)AfAm 71 (>60 ml/min/1.73 sqM) Est GFR (CKD-EPI)NonAf 62 (>60 ml/min/1.73 sqM) Glucose 109 H (74-99) mg/dL Calcium 9.7 (8.4-10.2) mg/dL Total Bilirubin 0.8 (0.2-1.3) mg/dL AST 26 (14-36) U/L ALT 25 (4-34) U/L Alkaline Phosphatase 97 (38-126) U/L Total Protein 6.6 (6.3-8.2) g/dL Albumin 4.3 (3.5-5.0) g/dL - Radiology Data Radiology results: report reviewed, image reviewed Disposition Clinical Impression: Hematoma, S/P cardiac catheterization Disposition: HOME SELF-CARE Condition: Stable Instructions (If sedation given, give patient instructions): Hematoma (ED) Additional Instructions: Follow-up closely with cardiology and PCP. Have a low threshold of returning to the ER for any new or worsening concerns. Is patient prescribed a controlled substance at d/c from ED?: No Referrals: Woo Olguin MD [Primary Care Provider] - 1-2 days Rubén Bolaños MD [STAFF PHYSICIAN] - 1-2 days Time of Disposition: 18:45
[2024-08-31 16:42] LABS: Basophils # (A) 0.1 k/uL (0-0.2); Basophils % (A) 1 %; Eosinophils # (A) 0.3 k/uL (0-0.7); Eosinophils % (A) 4 %; HCT 41.2 % (34.0-46.0); Lymphocytes # (A) 2.5 k/uL (1.0-4.8); Lymphocytes % (A) 29 %; MCH 30.3 pg (25.0-35.0); MCHC 34.1 g/dL (31.0-37.0); MCV 88.8 fL (80.0-100.0); Mean Platelet Volume 8.7; Monocytes # (A) 0.5 k/uL (0-1.0); Monocytes % (A) 5 %; Neutrophils # (A) 5.1 k/uL (1.3-7.7); Neutrophils % (A) 59 %; Platelet Count 271 k/uL (150-450); RBC 4.64 m/uL (3.80-5.40); RDW 13.4 % (11.5-15.5); WBC 8.7 k/uL (3.8-10.6)
[2024-08-31 17:04] LABS: ALT 25 U/L (4-34); AST 26 U/L (14-36); African American GFR (CKD) 71 (>60 ml/min/1.73 sqM); Albumin 4.3 g/dL (3.5-5.0); Alkaline Phosphatase 97 U/L (38-126); Anion Gap 10 mmol/L; Blood Urea Nitrogen 15 mg/dL (7-17); Calcium 9.7 mg/dL (8.4-10.2); Carbon Dioxide 25 mmol/L (22-30); Chloride 104 mmol/L (98-107); Glucose 109 mg/dL (74-99); Non-African American GFR(CKD) 62 (>60 ml/min/1.73 sqM); Potassium 3.8 mmol/L (3.5-5.1); Sodium 139 mmol/L (137-145); Total Bilirubin 0.8 mg/dL (0.2-1.3); Total Protein 6.6 g/dL (6.3-8.2)
[2024-08-31 17:52] VITALS: RESP 18; TEMP 97.9
--- NOTE | 2024-08-31 18:04 | CT ---
EXAMINATION TYPE: CT angio lower extremity RT DATE OF EXAM: 08/31/2024 5:40 PM COMPARISON: Right groin ultrasound earlier today HISTORY: heart cath 9 days ago/ still leaking a little blood CT DLP: 2222.9 mGycm Automated exposure control for dose reduction was used. TECHNIQUE: Performed without and with IV Contrast, patient injected with 100 ml mL of Isovue 370. Three-D recons tructed images created on an independent workstation. . FINDINGS: Some ill-defined fluid and fat stranding anterior and medial to the femoral vessels in the right khloe etal region is seen. Correlating with the ultrasound there is some ill-definition of the anterior mar gin of the common femoral vein at the level of the greater saphenous vein junction near axial image 9 5 extending anteriorly to the small focal fluid collection on axial image 102 measuring 2.4 x 1.8 cm. Venous system is nonopacified. This extends to the skin surface more inferiorly on axial image 110. The arterial system is unremarkable ascending into superficial and deep femoral arteries and poplitea l artery distally. IMPRESSION: FINDINGS CORRELATE WITH ULTRASOUND. SMALL FOCAL FLUID COLLECTION IN THE RIGHT GROIN HAS ILL DEFINITIO N FROM THE ANTERIOR MARGIN OF THE COMMON FEMORAL VEIN AT THE LEVEL OF THE GREATER SAPHENOUS JUNCTION. ARTERIAL SYSTEM UNREMARKABLE. [facility], , 08/31/2024 6:02 PM
[2024-08-31 18:55] VITALS: BP 162/105; PULSE 68
== END 2024-08-31 18:59 | disposition home or self-care (01) ==
LOC: EC 15:50
DX: N99.841 Postprocedural hematoma of a genitourinary system organ or structure following other procedure (principal); I48.91 Unspecified atrial fibrillation; Z79.01 Long term (current) use of anticoagulants; Z98.890 Other specified postprocedural states; Z88.5 Allergy status to narcotic agent; Z88.8 Allergy status to other drugs, medicaments and biological substances
CPT/HCPCS: 36415; 80053; 85025; 73706; 99284; Q9967

== ENCOUNTER → 2024-08-31 | Outpatient (CLI) | payer MEDICARE ==
--- NOTE | 2024-08-31 14:06 | US ---
EXAMINATION TYPE: US groin RT DATE OF EXAM: 08/31/2024 COMPARISON: NONE CLINICAL INDICATION: Female, 64 years old with history of S30.11XA CONTUSION OF ABDOMINAL WALL, INITI AL ENCO; ablation 9 days ago; puncture site is still bleeding TECHNIQUE: Grayscale color Doppler and spectral Doppler imaging of the right groin. FINDINGS: Evidence of clotted pseudoaneurysm near the confluence of the greater saphenous vein and co mmon femoral vein with neck measuring up to 7 mm. IMPRESSION: Findings suspicious for pseudoaneurysm with its attachment near the confluence at the co mmon femoral vein and greater saphenous vein appearing to be clotted/thrombosed. Other small vessels around the hematoma to demonstrate or Doppler flow. Consider CT angiogram of the lower extremity. Findings going to be communicated to ordering provider 08/31/2024 2:03 PM by time study technologist. [facility], , 08/31/2024 2:04 PM
== END | disposition home or self-care (01) ==
LOC: RADUSWWP 12:40
PROVIDERS: ATTEND Internal Medicine Interventional Cardiology
DX: S30.1XXA Contusion of abdominal wall, initial encounter (principal); X58.XXXA Exposure to other specified factors, initial encounter

== ENCOUNTER → 2025-01-21 | Outpatient (CLI) | payer MEDICARE ==
[2025-01-21 13:13] LABS: Basophils # (A) 0.11 X 10*3/uL (0.00-0.10); Basophils % (A) 1.6 %; Eosinophils # (A) 0.56 X 10*3/uL (0.04-0.35); Eosinophils % (A) 8.4 %; HCT 43.6 % (37.2-46.3); HGB 14.2 g/dL (12.0-15.0); Lymphocytes # (A) 1.87 X 10*3/uL (0.90-5.00); MCHC 32.6 g/dL (32.0-37.0); MCV 89.2 FL (80.0-97.0); Mean Platelet Volume 11.6 FL (9.5-12.2); Monocytes # (A) 0.71 X 10*3/uL (0.20-1.00); Monocytes % (A) 10.6 %; NRBC Per 100 WBC 0 X 10*3/uL (0.00-0.01); Neutrophils # (A) 3.42 X 10*3/uL (1.80-7.70); Neutrophils % (A) 51.1 %; Platelet Count 230 X 10*3/uL (140-440); RBC 4.89 X 10*6/uL (4.10-5.20); RDW 13.1 % (11.5-14.5); WBC 6.69 X 10*3/uL (4.50-10.00)
[2025-01-21 13:42] LABS: ALT 31 U/L (8-44); AST 24 U/L (13-35); Albumin 4.2 g/dL (3.8-4.9); Albumin/Globulin Ratio 2.47 Ratio (1.60-3.17); Alkaline Phosphatase 104 U/L (41-126); BUN/Creat Ratio 12.67 Ratio (12.00-20.00); Blood Urea Nitrogen 11.4 mg/dL (9.0-27.0); Calcium 9.1 mg/dL (8.7-10.3); Carbon Dioxide 24.2 mmol/L (21.6-31.8); Chloride 107 mmol/L (96-109); Chol/HDL Ratio 2.77 Ratio; Globulin 1.7 g/dL (1.6-3.3); Glucose 87 mg/dL (70-110); LDL Cholesterol,Calculated 81.3 mg/dL (0.0-131.0); Sodium 143 mmol/L (135-145); Total Bilirubin 0.6 mg/dL (0.3-1.2); Total Protein 5.9 g/dL (6.2-8.2)
== END | disposition home or self-care (01) ==
LOC: LABWHC1 08:11
PROVIDERS: ATTEND Internal Medicine Interventional Cardiology
DX: I10 Essential (primary) hypertension (principal); E78.2 Mixed hyperlipidemia; E55.9 Vitamin D deficiency, unspecified
CPT/HCPCS: 36415; 80053; 80061; 82306; 85025

== ENCOUNTER 2025-01-26 08:30 | Day surgery (SDC) | payer MEDICARE ==
[~2025-01-26 08:30] MED LIST changes: -LACTATED RINGERS 1,000 ML IV SCH; +SODIUM CHLORIDE 0.9% 1,000 ML IV SCH
[2025-01-26] MEDS ORDERED: LACTATED RINGERS 1,000 ML IV SCH (08:51)
[2025-01-26] MEDS: LIDOCAINE 1% (10MG/ML) FOR IV START INTRADERMA PRN (09:10)
[2025-01-26] MEDS: SODIUM CHLORIDE 0.9% 500 ML 500 ML IV SCH (09:10)
[2025-01-26] MEDS: IV FLUID CONTINUATION 500 ML IV ONE (09:10)
[2025-01-26 09:20] VITALS: TEMP 97.9
[2025-01-26] MEDS ORDERED: diphenhydrAMINE 50 MG/ML 1 ML VIAL ONE (09:47)
[2025-01-26] MEDS ORDERED: ONDANSETRON 4 MG/2 ML VIAL ONE (09:47)
[2025-01-26] MEDS ORDERED: PROPOFOL 10 MG/ML 20 ML VIAL IV ONE (09:47)
[2025-01-26] MEDS: BENZOCAINE SPRAY 1 EACH TOPICAL STA (09:56)
[2025-01-26] MEDS ORDERED: FUROSEMIDE 20 MG TAB PO PRN (10:15)
--- NOTE | 2025-01-26 10:19 | P.PCN ---
Date of Procedure: 01/26/25 Description of Procedure: Indication: Atrial tachycardia Procedure Description: After explaining the procedure to the patient, it's risk and complications, blood pressure, heart rate and O2 saturation were monitored. The throat was sprayed with Cetacaine. Patient received sedation per anesthesia department. The probe was introduced into the esophagus without difficulty. Images were obtained. Following that, the probe was removed. There was no immediate complication. Findings: Biatrial enlargement was noted. Left atrial appendage is normal. Left ventricular systolic function is mildly to moderately impaired with global hypokinesis, estimated ejection fraction 40 to 45%. The aortic valve appears to be normal. Mild thickening of the mitral valve leaflets was noted. Tricuspid valve appears to be normal. Descending thoracic aorta appears to be normal. No pericardial effusion was noted. Contrast bubble study revealed no shunting across the interatrial septum. Doppler: Pulse wave and color Doppler were obtained, and revealed moderate mitral and tricuspid regurgitation, trace aortic regurgitation was noted. There was no shunting across the interatrial septum. Conclusion: 1. Biatrial enlargement 2. Normal appearance of the left atrial appendage 3. Mild to moderate global hypokinesis of the left ventricle 4. Moderate mitral and tricuspid regurgitation 5. Trace aortic regurgitation 6. No shunting across the interatrial septum. Cardioversion: After obtaining CINDY and obtaining sedated state per anesthesia department a synchronized biphasic cardioversion using 200 J was performed with methodist of sinus mechanism. There was no immediate complications.
[2025-01-26 11:54] VITALS: BP 119/87; PULSE 71; RESP 16
[2025-01-26] MEDS ORDERED: VALSARTAN 80 MG TAB PO SCH (21:00)
[2025-01-26] MEDS ORDERED: APIXABAN 5 MG TAB PO SCH (21:00)
[2025-01-27] MEDS ORDERED: METOPROLOL SUCCINATE (ER) 50 MG TAB.ER.24H PO SCH (09:00)
== END 2025-01-26 12:20 | disposition home or self-care (01) ==
LOC: OR 08:30
PROVIDERS: ATTEND Internal Medicine Interventional Cardiology
DX: I25.10 Atherosclerotic heart disease of native coronary artery without angina pectoris (principal); I48.0 Paroxysmal atrial fibrillation; I08.2 Rheumatic disorders of both aortic and tricuspid valves; I25.2 Old myocardial infarction; I47.19 Other supraventricular tachycardia; I50.9 Heart failure, unspecified; I11.0 Hypertensive heart disease with heart failure; E78.2 Mixed hyperlipidemia; G47.33 Obstructive sleep apnea (adult) (pediatric); M19.90 Unspecified osteoarthritis, unspecified site; Z99.89 Dependence on other enabling machines and devices; Z88.5 Allergy status to narcotic agent; Z88.8 Allergy status to other drugs, medicaments and biological substances; Z79.02 Long term (current) use of antithrombotics/antiplatelets; Z79.899 Other long term (current) drug therapy
CPT/HCPCS: 93312; 93320; 93325; 92960; J1200; J2405; J2704

== ENCOUNTER → 2025-02-23 | Outpatient (CLI) | payer MEDICARE ==
--- NOTE | 2025-02-23 08:53 | MM ---
Reason for Exam: Screening (asymptomatic). Last mammogram was performed 1 year(s) and 1 month(s) ago. Patient History: Menarche at age 10. First Full-Term at age 26. Postmenopausal. 12/31/2012, Benign Cyst Aspiration on the right side. Risk Values: Janice 5 year model risk: 2.0%. NCI Lifetime model risk: 7.3%. Prior Study Comparison: 03/02/2018 Bilateral Screening Mammogram, [facility]. 03/14/2022 Bilateral MG screening mammo w CAD, [facility]. 01/20/2024 Bilateral MG screening mammo w CAD, [facility]. Tissue Density: The breasts are heterogeneously dense, which may obscure small masses. Findings: Analyzed By CAD. There is no suspicious group of microcalcifications or new suspicious mass in either breast. Surgical clip right breast stable in position. Overall Assessment: Benign, BI-RAD 2 Management: Screening Mammogram of both breasts in 1 year. . Patient should continue monthly self-breast exams. A clinical breast exam by your physician is recommended on an annual basis. This exam should not preclude additional follow-up of suspicious palpable abnormalities. Note on Janice scores and lifetime risk: 1. A Janice score greater than 3% is considered moderate risk. If this is the case, consider specialist referral to assess eligibility for a risk reducing agent. 2. If overall lifetime risk for the development of breast cancer is 20% or higher, the patient may qualify for future screening with alternating mammogram and breast MRI. [facility], , 02/23/2025 8:49 AM. Electronically signed and approved by: Matthew Gu M.D. [facility]
== END | disposition home or self-care (01) ==
LOC: RADMAMWWP 07:56
PROVIDERS: ATTEND Pediatrics
DX: Z12.31 Encounter for screening mammogram for malignant neoplasm of breast (principal); R92.333 Mammographic heterogeneous density, bilateral breasts; Z78.0 Asymptomatic menopausal state
CPT/HCPCS: 77063; 77067